=== PATIENT | male | born 1960 | race Caucasian/White ===

== ENCOUNTER 2020-02-25 19:47 | Inpatient (IN) | payer MEDICARE, OTHER ==
[~2020-02-25] VITALS: Ht 177.8 cm; Wt 113.4 kg
[2020-02-25] MEDS ORDERED: CEFTRIAXONE SOD 1 GM/NS 50 ML 50 ML IV ONE (20:15)
[2020-02-25] MEDS ORDERED: ACETAMINOPHEN 325 MG TAB PO ONE (20:15)
--- OUTSIDE RECORDS SUMMARY | 2020-02-25 20:18 | XMS REPORT | Clinical Summary ---
Author Author [facility] Organization [facility] Address Unknown Phone Unavailable Care Team Providers Care Instructional Facilitator Name Role Phone Jacqueline Parker PCP Allergies No Known Allergies Medications End Date Status Medication Sig Dispensed Refills Start Date Active aspirin (ASPIRIN) 81 mg Chew and 30 tablet 0 chewable swallow 1 8 tabletIndications: tablet by Atypical chest pain mouth daily. Additional Information Patient not taking. Reported on 04/08/2019 9:16 AM Active metoprolol succinate Take 1 tablet 90 tablet 1 (TOPROL XL) 50 mg by mouth 8 extended release daily. tabletIndications: Essential hypertension, benign Active polyethylene glycol Add lukewarm 4000 mL 0 03/21 (GOLYTELY) [id number] drinking 8 -5.86 gram oral water to the solutionIndications: fill hali (4 Fecal occult blood test liters) and positive shake. Drink as directed by your doctor.. Active cyanocobalamin, vitamin Take 1 tablet 100 tablet 1 B-12, 1,000 mcg by mouth 9 tabletIndications: Low daily. serum vitamin B12 Active polyethylene glycol Add lukewarm 4000 mL 0 08/07 (GOLYTELY) [id number] drinking 9 -5.86 gram oral water to the solutionIndications: fill hali (4 Occult blood positive liters) and stool shake. Drink as directed by your doctor.. Active blood glucose meter Use as 1 Kit 0 (PRECISION XTRA directed.. 9 GLUCOMETER)Indications: Type 2 diabetes mellitus with complication, without long-term current use of insulin Active blood glucose (PRECISION Use 2 times 50 Each 3 1 XTRA TEST STRIPS) test weekly (once 9 stripsIndications: Type 2 per day on diabetes mellitus with Mon,Thurs) to complication, without test blood long-term current use of sugar. insulin Active lancets 28 Use 2 times 100 Each 1 gaugeIndications: Type 2 weekly as 9 diabetes mellitus with directed. complication, without long-term current use of insulin Active lidocaine (RECTICARE) 5 % Apply to 45 g 2 topical creamIndications: affected area 9 Abdominal hyperesthesia daily. Active pregabalin (LYRICA) 100 Take 1 60 capsule 5 mg capsuleIndications: capsule by 0 Abdominal hyperesthesia mouth 2 times daily. Active dexlansoprazole Take 1 90 capsule 1 (DEXILANT) 30 mg delayed capsule by 0 release mouth daily. capsuleIndications: Other chronic gastritis without hemorrhage, Pyloric spasm Active metFORMIN (GLUCOPHAGE) Take 1 tablet 180 tablet 2 0 1,000 mg by mouth 2 0 tabletIndications: Type 2 times daily diabetes mellitus with (with meals). complication, without long-term current use of insulin Active hydroCHLOROthiazide Take 1 tablet 90 tablet 1 11/03 (HYDRODIURIL) 25 mg by mouth 0 tabletIndications: daily. Essential hypertension, benign Active pioglitazone (ACTOS) 15 Take 1 tablet 90 tablet 1 mg tabletIndications: by mouth 0 Type 2 diabetes mellitus daily. with complication, without long-term current use of insulin Active glimepiride (AMARYL) 2 mg Take 1 tablet 90 tablet 1 tabletIndications: Type 2 by mouth 0 diabetes mellitus with daily (with complication, without breakfast). long-term current use of insulin Active amLODIPine (NORVASC) 10 Take 1 tablet 90 tablet 0 mg tabletIndications: by mouth 0 Essential hypertension, daily. benign Active losartan (COZAAR) 50 mg Take 2 180 tablet 1 tabletIndications: tablets by 0 Essential hypertension, mouth daily. benign Active [id number]-[id number]-EPA-Fish Oil Take by 30 capsule 1 1 (FISH OIL) 1,000 mg (120 mouth. 0 mg-180 mg) capIndications: Hypertriglyceridemia 04/05/2019 Discontinued (Dose adjustmen t) pregabalin (LYRICA) 75 mg Take 1 180 capsule 1 capsuleIndications: capsule by 9 Abdominal hyperesthesia mouth 2 times daily. 01/30/2020 Discontinued (Reorder) losartan (COZAAR) 50 mg Take 2 180 tablet 1 tabletIndications: tablets by 9 Essential hypertension, mouth daily. benign 06/02/2019 Discontinued (Reorder) dexlansoprazole Take 1 90 capsule 1 (DEXILANT) 30 mg delayed capsule by 9 release mouth daily. capsuleIndications: Other chronic gastritis without hemorrhage, Pyloric spasm 07/30/2019 Discontinued (Reorder) amLODIPine (NORVASC) 10 Take 1 tablet 90 tablet 1 mg tabletIndications: by mouth 9 Essential hypertension, daily. benign 07/30/2019 Discontinued (Reorder) glimepiride (AMARYL) 2 mg Take 1 tablet 90 tablet 1 tabletIndications: Type 2 by mouth 9 diabetes mellitus with daily (with complication, without breakfast). long-term current use of insulin 07/30/2019 Discontinued (Reorder) pioglitazone (ACTOS) 15 Take 1 tablet 90 tablet 1 mg tabletIndications: by mouth 9 Type 2 diabetes mellitus daily. with complication, without long-term current use of insulin 12/02/2019 Discontinued (Reorder) hydroCHLOROthiazide Take 1 tablet 90 tablet 1 02/02 (HYDRODIURIL) 25 mg by mouth 9 tabletIndications: daily. Essential hypertension, benign 12/02/2019 Discontinued (Reorder) metFORMIN (GLUCOPHAGE) Take 1 tablet 180 tablet 2 1 1,000 mg by mouth 2 9 tabletIndications: Type 2 times daily diabetes mellitus with (with meals). complication, without long-term current use of insulin 04/05/2019 Discontinued (Reorder) pregabalin (LYRICA) 100 Take 1 60 capsule 2 mg capsuleIndications: capsule by 0 Abdominal hyperesthesia mouth 2 times daily. 10/18/2019 Discontinued (Reorder) pregabalin (LYRICA) 100 Take 1 60 capsule 5 mg capsuleIndications: capsule by 0 Abdominal hyperesthesia mouth 2 times daily. 11/25/2019 Discontinued (Reorder) dexlansoprazole Take 1 90 capsule 1 (DEXILANT) 30 mg delayed capsule by 0 release mouth daily. capsuleIndications: Other chronic gastritis without hemorrhage, Pyloric spasm 10/18/2019 Discontinued (Reorder) amLODIPine (NORVASC) 10 Take 1 tablet 90 tablet 0 mg tabletIndications: by mouth 0 Essential hypertension, daily. benign 10/18/2019 Discontinued (Reorder) glimepiride (AMARYL) 2 mg Take 1 tablet 90 tablet 0 tabletIndications: Type 2 by mouth 0 diabetes mellitus with daily (with complication, without breakfast). long-term current use of insulin 10/18/2019 Discontinued (Reorder) pioglitazone (ACTOS) 15 Take 1 tablet 90 tablet 0 mg tabletIndications: by mouth 0 Type 2 diabetes mellitus daily. with complication, without long-term current use of insulin 11/25/2019 Discontinued (Reorder) amLODIPine (NORVASC) 10 Take 1 tablet 30 tablet 0 mg tabletIndications: by mouth 0 Essential hypertension, daily. benign 11/25/2019 Discontinued (Reorder) glimepiride (AMARYL) 2 mg Take 1 tablet 30 tablet 0 tabletIndications: Type 2 by mouth 0 diabetes mellitus with daily (with complication, without breakfast). long-term current use of insulin 11/25/2019 Discontinued (Reorder) pioglitazone (ACTOS) 15 Take 1 tablet 30 tablet 0 mg tabletIndications: by mouth 0 Type 2 diabetes mellitus daily. with complication, without long-term current use of insulin 01/30/2020 Discontinued (Reorder) amLODIPine (NORVASC) 10 Take 1 tablet 90 tablet 0 mg tabletIndications: by mouth 0 Essential hypertension, daily. benign 01/08/2020 Discontinued (Reorder) glimepiride (AMARYL) 2 mg Take 1 tablet 30 tablet 0 tabletIndications: Type 2 by mouth 0 diabetes mellitus with daily (with complication, without breakfast). long-term current use of insulin 01/08/2020 Discontinued (Reorder) pioglitazone (ACTOS) 15 Take 1 tablet 30 tablet 0 202 mg tabletIndications: by mouth 0 Type 2 diabetes mellitus daily. with complication, without long-term current use of insulin 01/30/2020 Discontinued (Reorder) glimepiride (AMARYL) 2 mg Take 1 tablet 30 tablet 0 tabletIndications: Type 2 by mouth 0 diabetes mellitus with daily (with complication, without breakfast). long-term current use of insulin 01/30/2020 Discontinued (Reorder) pioglitazone (ACTOS) 15 Take 1 tablet 30 tablet 0 mg tabletIndications: by mouth 0 Type 2 diabetes mellitus daily. with complication, without long-term current use of insulin 01/20/2020 ciprofloxacin HCl (CIPRO) Start day 6 tablet 0 500 mg tabletIndications: before 0 Elevated PSA prostate biopsy. Take 1 tablet by mouth 2 times daily for 3 days 01/17/2020 sodium phosphates (FLEET Insert 1 135 mL 0 1 ENEMA) 19-7 gram/118 mL Bottle 0 enemaIndications: rectally once Elevated PSA for 1 dose. 01/30/2020 tropicamide (MYDRIACYL) Instill 1 15 mL 0 0.5 % ophthalmic Drop in each 0 solutionIndications: Type eye once as 2 diabetes mellitus with needed for up complication, without to 1 dose long-term current use of (for poor insulin retina scan image). Active Problems Problem Noted Date Lower urinary tract symptoms (LUTS) 01/17/2020 Elevated PSA 01/17/2020 Chronic left shoulder pain 04/02/2019 Decreased range of motion of left shoulder 9 Impaired tolerance of activity 04/02/2019 Pyloric spasm 05/22/2018 Polyneuropathy associated with underlying disease Abdominal hyperesthesia - abd wall hyperparathesia- E MG showed FINDINGS OF 03/16/2018 CHRONIC RE-INNERVATION POTENTIALS ON NE EDLE EMG AT THE LEVEL OF THE LEFT T12 PARASPINALS. Essential hypertension, benign 03/16/2018 Type 2 diabetes mellitus with complication, without l tez-term current use 03/16/2018 of insulin Dyslipidemia 03/16/2018 Epigastric abdominal pain 01/02/2018 Atypical chest pain 01/01/2018 Encounters Care Team Description Date Type Specialty Jacqueline Parker DO Bray, Ashley 02/14/2020 Nurse Only Jacqueline Parker DO Type 2 diabetes mellitus with complicati on, without long-term current use of insulin (Primary Dx); Elevated PSA; Proteinuria, unspecified type; Essential hypertension, benign; Elevated LFTs; Needs flu shot; Hypokalemia; Hypertriglyceridemia 01/30/2020 Telephonic [facility] Practice Encounter Jacqueline Parker DO 01/30/2020 Orders Only [facility] Yury Del Rosario MD Elevated PSA (Primary Dx); Lower urinary tract symptoms (LUTS) 01/17/2020 Telephonic Urology Encounter Jacqueline Parker DO Medications 01/08/2020 Refill [facility] Jacqueline Parker DO Type 2 diabetes mellitus with complicati on, without long-term current use of insulin (Primary Dx); Essential hypertension, benign; Elevated PSA; Preventative health care; Lower urinary tract symptoms (LUTS) 12/02/2019 Telephonic [facility] Encounter Jacqueline Parker DO Medications 11/25/2019 Refill [facility] Jacqueline Parker DO Medications 10/18/2019 Refill [facility] Kira Alcala MD Medications 10/18/2019 [facility] 07/30/2019 Clinical Pharmacy Jacqueline Parkre DO Medications 07/30/2019 Refill [facility] Rachel Juares, PT Chronic left shoulder pain; Decreased range of motion of left shoulder; Impaired tolerance of activity 06/05/2019 Therapy Physical Therapy Jacqueline Parker DO Medications 06/02/2019 Refill [facility] Rachel Juares, STEPHANIE Chronic left shoulder pain; Decreased range of motion of left shoulder; Impaired tolerance of activity 05/30/2019 Therapy Physical Therapy Abdominal hyperesthesia- abd wall hyperparathesia- EMG showed FINDINGS OF CHRONIC RE-INNERVATION POTENTIALS ON NEEDLE EMG AT THE LEVEL OF THE LEFT T12 PARASPINALS. 05/01/2019 Ancillary Radiology Procedure Abdominal hyperesthesia- abd wall hyperparathesia- EMG showed FINDINGS OF CHRONIC RE-INNERVATION POTENTIALS ON NEEDLE EMG AT THE LEVEL OF THE LEFT T12 PARASPINALS. 2019 Ancillary Radiology Procedure Kira Alcala MD 04/12/2019 Orders Only Neurology Stephenie Perez DDS Dental calculus (Primary Dx); Chronic periodontitis 04/08/2019 Office Visit Dentistry Kira Alcala MD Abdominal hyperesthesia- abd wall hyperp arathesia- EMG showed FINDINGS OF CHRONIC RE-INNERVATION POTENTIALS ON NEEDLE EMG AT THE LEVEL OF THE LEFT T12 PARASPINALS. 04/05/2019 Office Visit Neurology Team, 1-Pt Rachel Juares, PT Chronic left shoulder pain (Primary Dx); Decreased range of motion of left shoulder; Impaired tolerance of activity 04/02/2019 Therapy Physical Therapy after 02/24/2019 Immunizations Name Administration Dates Next Due Influenza, Vaccine 03/16/2018 (Deferred: Patie nt Refused) <FLUCELVAX>(Preservative- Free) Influenza, 02/14/2020, 02/21/2019 (Deferred: Patie nt Refused) 02/13/2021 Vaccine<FLUCELVAX>(Multi- Dose) PNEUMOCOCCAL 23-VALPS 03/16/2018 (Deferred: Other - requesting to wait) VACCINE 25 MCG/0.5 ML INJECTION Tdap (Tetanus Toxoid, 07/06/2018 (Deferred: Other - patient request to Reduced Diphtheria Toxoid wait), 03/16/2018 (Deferre d: Other - already had And Acellular Pertussis, it) Absorbed) Family History Relation Name Status Comments Brother Alive 3 brother Father Mother Sister Alive 2 sisters Social History Date Tobacco Use Types Packs/Day Years Used Never Smoker Smokeless Tobacco: Never Used Tobacco Cessation: Counseling Given: No Drinks/Week oz/Week Comments Alcohol Use 5 Cans of beer 5.0 Yes Food Insecurity Answer Date Recorded Within the past 12 months, you worried that your Never nanci e 01/08/2019 food would run out before you got money to buy more. Within the past 12 months, the food you bought Never true 01/08/2019 just didn't last and you didn't have mo eugenie to get more. Sex Assigned at Date Recorded Not on file Industry Job Start Date Occupation Not on file Not on file Not on file Travel End Travel History Travel Start No recent travel history available. Date Recorded COVID-19 Exposure Response 02/14/2020 2:16 PM DATA ANALYTICS ANALYST In the last month, have you been in contact with No / Unsure someone who was confirmed or suspected to have Coronavirus / COVID-19? Last Filed Vital Signs Reading Time Taken Comments Vital Sign 133/74 06/06/2019 8:59 AM DATA ANALYTICS ANALYST Blood Pressure 108 06/06/2019 8:59 AM DATA ANALYTICS ANALYST Pulse 37 C (98.6 F) 04/05/2019 8:47 AM DATA ANALYTICS ANALYST Temperature 18 04/05/2019 8:47 AM DATA ANALYTICS ANALYST Respiratory Rate - - Oxygen Saturation - - Inhaled Oxygen Concentration 112 kg (247 lb) 04/05/2019 8:47 AM DATA ANALYTICS ANALYST Weight 177.8 cm (5' 10") 04/05/2019 8:47 AM DATA ANALYTICS ANALYST Height 35.44 04/05/2019 8:47 AM DATA ANALYTICS ANALYST Body Mass Index Plan of Treatment Care Team Description Date Type Specialty Jacqueline Parker DO [address] [place] [address] [phone] 03/12/2020 Telephonic Family Practice Encounter 03/25/2020 Telephonic Nutrition Encounter Health Maintenance Due Date Last Done Comments Colorectal Cancer Scrn 03/20/2019 03/20/2018 Annual (FIT/FOBT) Age 50 to 75 DM Foot Exam (Yearly) 10/24/2019 10/23/2018, 07/06/2018 DM HGBA1C (Yearly) 01/14/2021 01/15/2020, 02/21/2019, 12/27/2018, Additional history exists DM Retinal Exam (Yearly) 02/13/2021 02/14/2020, 02/21/2019, 03/16/2018 IMM Influenza Seasonal Completed 02/14/2020 Oct to June (>/= 19 yrs) Procedures Comments Procedure Name Priority Date/Time Associated Diag nosis GAMMA GLUTAMYL Routine 02/14/2020 Elevated LFTs TRANSFERASE (GGT) 2:58 PM DATA ANALYTICS ANALYST HEPATITIS PANEL Routine 02/14/2020 Elevated LFTs 2:58 PM DATA ANALYTICS ANALYST BASIC METABOLIC PANEL Routine 02/14/2020 Hypokale rupal 2:58 PM DATA ANALYTICS ANALYST LIVER PROFILE Routine 02/14/2020 Elevated LFTs 2:58 PM DATA ANALYTICS ANALYST TOTAL PROTEIN/CREATININE Routine 02/14/2020 Prote inuria, unspecified RATIO, URINE 2:58 PM DATA ANALYTICS ANALYST type OPHTHALMOLOGY RETINAL Routine 02/14/2020 Type 2 d iabetes mellitus SCAN 2:49 AM DATA ANALYTICS ANALYST with complication, without long-term current use of insulin URINALYSIS Routine 01/15/2020 Essential hyper tension, 12:41 PM CDT benign URINALYSIS Routine 01/15/2020 Essential hyper tension, 12:41 PM CDT benign CBC Routine 01/15/2020 Preventative he alth care 12:41 PM CDT MICROALBUMIN / CREATININE Routine 01/15/2020 Type 2 diabetes mellitus URINE RATIO 12:41 PM CDT with complication, without long-term current use of insulin VITAMIN B12 Routine 01/15/2020 Type 2 diabetes mellitus 12:41 PM CDT with complication, without long-term current use of insulin PROSTATE SPECIFIC ANTIGEN Routine 01/15/2020 Elev ated PSA (PSA) 12:41 PM CDT THYROID STIMULATING Routine 01/15/2020 Preventati ve health care HORMONE (TSH) 12:41 PM CDT LIPID PROFILE Routine 01/15/2020 Preventative he alth care 12:41 PM CDT CBC/DIFF Routine 01/15/2020 Preventative he alth care 12:41 PM CDT COMPREHENSIVE METABOLIC Routine 01/15/2020 Type 2 diabetes mellitus PANEL 12:41 PM CDT with complication, without long-term current use of insulin HEMOGLOBIN A1C Routine 01/15/2020 Type 2 diabetes mellitus 12:41 PM CDT with complication, without long-term current use of insulin MRI BRAIN W AND W/O Routine 05/01/2019 Abdominal hyperesthesia- CONTRAST 7:58 AM DATA ANALYTICS ANALYST abd wall hyperparat hesia- EMG showed FINDINGS OF CHRONIC RE-INNERVATION POTENTIALS ON NEEDLE EMG AT THE LEVEL OF THE LEFT T12 PARASPINALS. CTA HEAD W CONTRAST Routine 2019 Abdominal hyperesthesia- 4:32 PM DATA ANALYTICS ANALYST abd wall hyperparathesia- EMG showed FINDINGS OF CHRONIC RE-INNERVATION POTENTIALS ON NEEDLE EMG AT THE LEVEL OF THE LEFT T12 PARASPINALS. DEVON Routine 04/05/2019 Abdominal hyper esthesia- 11:43 AM DATA ANALYTICS ANALYST abd wall hyperparathesia- EMG showed FINDINGS OF CHRONIC RE-INNERVATION POTENTIALS ON NEEDLE EMG AT THE LEVEL OF THE LEFT T12 PARASPINALS. HTLV-I/II AB QL Routine 04/05/2019 Abdominal hype resthesia- 11:43 AM DATA ANALYTICS ANALYST abd wall hyperparathesia- EMG showed FINDINGS OF CHRONIC RE-INNERVATION POTENTIALS ON NEEDLE EMG AT THE LEVEL OF THE LEFT T12 PARASPINALS. VITAMIN B6 Routine 04/05/2019 Abdominal hyper esthesia- 11:43 AM DATA ANALYTICS ANALYST abd wall hyperparathesia- EMG showed FINDINGS OF CHRONIC RE-INNERVATION POTENTIALS ON NEEDLE EMG AT THE LEVEL OF THE LEFT T12 PARASPINALS. SJOGREN'S AB Routine 04/05/2019 Abdominal hyper esthesia- 11:43 AM DATA ANALYTICS ANALYST abd wall hyperparathesia- EMG showed FINDINGS OF CHRONIC RE-INNERVATION POTENTIALS ON NEEDLE EMG AT THE LEVEL OF THE LEFT T12 PARASPINALS. COPPER, SERUM Routine 04/05/2019 Abdominal hyper esthesia- 11:43 AM DATA ANALYTICS ANALYST abd wall hyperparathesia- EMG showed FINDINGS OF CHRONIC RE-INNERVATION POTENTIALS ON NEEDLE EMG AT THE LEVEL OF THE LEFT T12 PARASPINALS. HEAVY METALS BLD Routine 04/05/2019 Abdominal hyp eresthesia- 11:43 AM DATA ANALYTICS ANALYST abd wall hyperparathesia- EMG showed FINDINGS OF CHRONIC RE-INNERVATION POTENTIALS ON NEEDLE EMG AT THE LEVEL OF THE LEFT T12 PARASPINALS. SYPHILIS SCREEN FOR Routine 04/05/2019 Abdominal hyperesthesia- INFECTION 11:43 AM DATA ANALYTICS ANALYST abd wall hyperparat hesia- EMG showed FINDINGS OF CHRONIC RE-INNERVATION POTENTIALS ON NEEDLE EMG AT THE LEVEL OF THE LEFT T12 PARASPINALS. HIV AG/AB COMBO ROUTINE Routine 04/05/2019 Abdomi nal hyperesthesia- SCREENING 11:43 AM DATA ANALYTICS ANALYST abd wall hyperparat hesia- EMG showed FINDINGS OF CHRONIC RE-INNERVATION POTENTIALS ON NEEDLE EMG AT THE LEVEL OF THE LEFT T12 PARASPINALS. RA FACTOR Routine 04/05/2019 Abdominal hyper esthesia- 11:43 AM DATA ANALYTICS ANALYST abd wall hyperparathesia- EMG showed FINDINGS OF CHRONIC RE-INNERVATION POTENTIALS ON NEEDLE EMG AT THE LEVEL OF THE LEFT T12 PARASPINALS. ANGIOTENSIN CONVERTING Routine 04/05/2019 Abdomin al hyperesthesia- ENZYME 11:43 AM DATA ANALYTICS ANALYST abd wall hyperparat hesia- EMG showed FINDINGS OF CHRONIC RE-INNERVATION POTENTIALS ON NEEDLE EMG AT THE LEVEL OF THE LEFT T12 PARASPINALS. BASIC METABOLIC PANEL Routine 04/05/2019 Abdomina l hyperesthesia- 11:43 AM DATA ANALYTICS ANALYST abd wall hyperparathesia- EMG showed FINDINGS OF CHRONIC RE-INNERVATION POTENTIALS ON NEEDLE EMG AT THE LEVEL OF THE LEFT T12 PARASPINALS. after 02/24/2019 Results * T Prot/Crea Ratio,Ur (02/14/2020 2:58 PM DATA ANALYTICS ANALYST) Creatinine, 70 20 - 370 mg/dL [facility] Total Protein, 0.08 <0.19 g/L [facility] Total 0.1 0 - 0.5 % % [facility] Protein/Creatin [facility] ine Ratio, Urine Specimen Urine - Voided, urine Performing Organization Address [facility] one Number [facility] [address] [place] [phone] * Liver Profile (02/14/2020 2:58 PM DATA ANALYTICS ANALYST) Total Protein 7.1 6.0 - 8.3 g/dL [facility] Bilirubin, 1.3 (H) 0.2 - 1.2 mg/dL [facility] Total [facility] Alkaline 62 34 - 104 U/L [facility] Phosphatase [facility] AST 38 13 - 39 U/L [facility] Direct 0.2 0.0 - 0.2 mg/dL [facility] Bilirubin [facility] ALT 70 (H) 7 - 52 U/L [facility] Albumin 4.5 4.2 - 5.5 g/dL [facility] Specimen Blood Performing Organization Address [facility] one Number [facility] [address] [place], [place] [phone] * Hepatitis Panel (02/14/2020 2:58 PM DATA ANALYTICS ANALYST) Pathologist [facility] Hepatitis C Negative Negative [facility] Virus (HCV) [facility] Antibody Hep B Surface Negative Negative [facility] Hep A Vir Ab Negative Negative [facility] IgM [facility] Hep B Core Ab Negative Negative [facility] IgM [facility] Specimen Blood Performing Organization Address [facility] one Number [facility] [address] [place] [address] * GGT [Gamma-Glutamyl Transferase] (02/14/2020 2:58 PM DATA ANALYTICS ANALYST) Pathologist [facility] GGT 102 (H) 9 - 64 U/L [facility] Specimen Blood Performing Organization Address [facility] one Number [facility] [address] [place], [place] [phone] * Basic Metabolic Panel (02/14/2020 2:58 PM DATA ANALYTICS ANALYST) Only the most recent of 2 results within the time period is included. Pathologist [facility] Sodium 133 (L) 136 - 145 mmol/L [facility] Potassium 4.1 3.5 - 5.1 mmol/L [facility] Chloride 93 (L) 98 - 107 mmol/L [facility] CO2 29 21 - 31 mmol/L [facility] Urea Nitrogen 17.0 7.0 - 25.0 mg/dL [facility] Creatinine 0.9 0.7 - 1.3 mg/dL [facility] Glucose 399 (H) 70 - 110 mg/dL [facility] Calcium 10.1 8.6 - 10.3 mg/dL [facility] GFR, Estimated 86 (L) >=90 mL/min/1.73 m2 [facility] Anion Gap 11 5 - 16 mmol/L [facility] Specimen Blood Performing Organization Address [facility] one Number [facility] [address] [place], [place] [phone] * OPHTHALMOLOGY RETINAL SCAN (02/14/2020 2:49 AM DATA ANALYTICS ANALYST) [facility] RETINAL NORMAL [facility] SCAN-FINAL RESULT Right Diabetic None [facility] Retinopathy Right Macular None [facility] Edema Right Other None [facility] Suspected Conditions Right Image Gradable Image IRIS Quality Left Diabetic None [facility] Retinopathy Left Macular None [facility] Edema Left Other None [facility] Suspected Conditions Left Image Gradable Image [facility]IS Quality Specimen Narrative Performed At Retinal Study Result for steven SIM 59 y/o, Abad (: [id number], ) presented to [facility] on 02-14-2020 for a retinal imaging study of the left and r ight eyes. Based on the findings of the study, the following is recommended for [place] Normal Scan: Please advise the patient to return for another scan in 1 year. Interpreting Provider's Comments: No comments provided Right eye findings: Normal Result. Ne gative for Diabetic Retinopathy. Left eye findings: Normal Result. Neg ative for Diabetic Retinopathy. This result was electronically signed Ramin Colindres MD, , Taxonomy: [id number] on 02/14/2020 10:3 0 PM. NOTE: Any pathology noted on this speedy betic retinal evaluation should be confirmed by an appropriate ophthalmic examination. Performing Organization Address City/State/Zipcode Ph one Number [facility] * CBC/Diff (01/15/2020 12:41 PM CDT) WBC 8.7 4.5 - 12.0 K/uL [facility] RBC 5.47 4.60 - 6.20 M/uL [facility] Hemoglobin 16.5 14.0 - 18.0 g/dL [facility] Hematocrit 48.1 40.0 - 54.0 % [facility] LABORATORY MCV 87.9 82.0 - 92.0 fL [facility] MCH 30.2 27.0 - 31.0 pg [facility] MCHC 34.3 32.0 - 36.0 g/dL [facility] RDW 43.4 35.1 - 43.9 fL [facility] Platelet 193 150 - 400 K/uL [facility] Mean Platelet 10.7 9.4 - 12.4 fL [facility] Volume [facility]OR[facility] Percent NRBC 0.0 % [facility] Neutrophil 63.4 34.0 - 67.9 % [facility] Lymphs 22.2 21.8 - 50.0 % [facility] Monocytes 10.5 5.3 - 12.0 % [facility] Eos 2.6 0.8 - 5.0 % [facility] Basos 0.8 0.2 - 1.2 % [facility] Immature 0.5 0.0 - 0.5 % [facility] Granulocytes LAB[facility]ORY Neutrophils 5.50 (H) 1.78 - 5.36 K/uL [facility] (Absolute) [facility] Lymphs 1.93 1.32 - 3.57 K/uL [facility] (Absolute) [facility] Monocytes(Absol 0.91 (H) 0.30 - 0.82 K/uL [facility] vickie) LABORATORY Eos (Absolute) 0.23 0.04 - 0.54 K/uL [facility] Baso (Absolute) 0.07 0.01 - 0.08 K/uL [facility] Immature Grans 0.04 (H) 0.00 - 0.03 K/uL [facility] (Abs) [facility] Absolute NRBC 0.00 K/uL [facility] Specimen Blood Performing Organization Address [facility] Ph one Number [facility] [address] [place], [place] [phone] * Urinalysis (01/15/2020 12:41 PM CDT) Color Yellow Colorless, Straw, [facility] Yellow [facility]ORATORY Clarity Clear Clear [facility] Spec [place], 1.026 1.001 - 1.035 [facility] Ur [facility] pH, Ur 5.0 5.0 - 8.0 [facility] Protein, Ur 2+ (A) Negative mg/dL [facility] Glucose, Ur Negative Negative mg/dL [facility] Ketone, Ur trace (A) Negative mg/dL [facility] Bilirubin, Ur Negative Negative mg/dL [facility] Nitrite, Ur Negative Negative [facility] Leukocyte Negative Negative mg/dL [facility] Blood, Ur Negative Negative mg/dL [facility] RBC <1 0 - 4 /HPF [facility] WBC 2 0 - 5 /HPF [facility] Epithelial Cell 1 <=1 /HPF [facility] Mucous Present (A) None seen /HPF [facility] Urobilinogen, 1.0 (A) <1.0 EU/dL [facility] Specimen Urine Performing Organization Address [facility] one Number [facility] [address] [place] [address] [phone] * Microalbumin / Creatinine Urine Ratio (01/15/2020 12:41 PM CDT) Pathologist [facility] Microalbumin, 15.2 <30.0 mg/dL [facility] Random [facility]OR[facility] Creatinine, 398 (H) 20 - 370 mg/dL [facility] Urine [facility] Urine 38.2 (H) 0.0 - 30.0 mg/g [facility] Microalbumin LAB[facility] Specimen Urine - Voided, urine Performing Organization Address [facility] one Number [facility] [address] [place] [address] * Hemoglobin A1C (01/15/2020 12:41 PM CDT) [facility] Hemoglobin A1c 8.9 (H) 4.3 - 6.1 % [facility] Estimated 209 (H) 70 - 110 mg/dL [facility] Average Glucose LABORATORY Specimen Blood Performing Organization Address [facility] one Number [facility] [address] [place] [address] * Comprehensive Metabolic Panel (01/15/2020 12:41 PM CDT) [facility] Sodium 140 136 - 145 mmol/L [facility] Potassium 3.3 (L) 3.5 - 5.1 mmol/L [facility] Chloride 98 98 - 107 mmol/L [facility] CO2 29 21 - 31 mmol/L [facility] Glucose 181 (H) 70 - 110 mg/dL [facility] Calcium 9.7 8.6 - 10.3 mg/dL [facility] Urea Nitrogen 14.0 7.0 - 25.0 mg/dL [facility] Creatinine 0.9 0.7 - 1.3 mg/dL [facility] Alkaline 57 34 - 104 U/L [facility] Phosphatase LABORATORY ALT 122 (H) 7 - 52 U/L [facility] AST 85 (H) 13 - 39 U/L [facility] Bilirubin, 1.8 (H) 0.2 - 1.2 mg/dL [facility] Total [facility]ORATORY Total Protein 7.4 6.0 - 8.3 g/dL [facility] GFR, Estimated 86 (L) >=90 mL/min/1.73 m2 [facility] Albumin 4.6 4.2 - 5.5 g/dL [facility] Anion Gap 13 5 - 16 mmol/L [facility] Specimen Blood Performing Organization Address [facility] one Number [facility] [address] [place] [address] * TSH [Thyroid Stimulating Hormone] (01/15/2020 12:41 PM CDT) TSH 3.96 0.45 - 5.33 uIU/mL [facility] Specimen Blood Performing Organization Address [facility] one Number [facility] [address] [place] [address] * PSA (01/15/2020 12:41 PM CDT) PSA 5.720 (H) <=4.000 ng/mL [facility] Specimen Blood Performing Organization Address [facility] one Number [facility] [address] [place] [address] [phone] * Vitamin B12 (01/15/2020 12:41 PM CDT) Vitamin B12 435 See comment pg/mL [facility] Comment: LABORATORY Normal: 180-914 pg/mL Intermittent: 145-180 pg/mL Deficient: <=145.0 pg/mL Specimen Blood Performing Organization Address [facility] one Number [facility] [address] [place] [address] [phone] * Lipid Profile (01/15/2020 12:41 PM CDT) Cholesterol 175.0 <=200.0 mg/dL [facility] Triglyceride 388 (H) <150 mg/dL [facility] HDL 37.0 See Reference Range [facility] Narrative. mg/dL LABORATORY LDL 60 <100 mg/dL [facility] Comment: LABORATORY Optimal: < 100.0 mg/dL Near Optimal: 120-129 mg/dL Borderline: 130-159 mg/dL High: 160-189 mg/dL Very High: >=190 mg/dL Patient Yes [facility] Fasting? LABORATORY Specimen Blood Performing Organization Address [facility] one Number [facility] [address] [place] [address] [phone] * MRI BRAIN W AND W/O CONTRAST (05/01/2019 7:58 AM DATA ANALYTICS ANALYST) Specimen Impressions Performed At IMPRESSION: [facility] 1. No acute intracranial abnormalitie s. 2. Mild generalized cerebral volume l oss. Mild supratentorial chronic microvascular ischemic change. Signed By: Rey Field MD, 05/01/2019 1:53 PM Narrative Performed At MRI BRAIN W AND W/O CONTRAST [facility] HISTORY: Ataxia, stroke suspected COMPARISON: CTA of the head 2019 TECHNIQUE: Multiplanar, multisequence MRI of the b rain (including diffusion-weighted imaging) was perform ed before and after the administration of intravenous, gadolini um based contrast. A total of 10 image series were submitted for interpr etation. DISCUSSION: Scalp/bone marrow: Unremarkable. Brain sulci: Mildly prominent. Ventricles: Compensatory dilatation. Extra-axial spaces: No masses or fluid collections. Parenchyma: Scattered T2/FLAIR hyperintense foci th roughout the supratentorial white matter are likely chronic microvascular ischemic changes. Otherwise, no mass, hemorrhage, or acut e vascular insults. No abnormal parenchymal, leptomeningeal , or dural enhancement is seen. Vessels: Normal flow voids in major art eries and veins. Sellar/Suprasellar region: No abnorma lities. Craniocervical junction: No abnormaliti es. Incidental findings: None. Procedure Note Interface, Rad/Mammog In - 05/01/2019 1:58 PM DATA ANALYTICS ANALYST MRI BRAIN W AND W/O CONTRAST HISTORY: Ataxia, stroke suspected COMPARISON: CTA of the head 2019 TECHNIQUE: Multiplanar, multisequence MRI of the brain (including diffusion-weighted imaging) was performed before and after the administration of intravenous, gadolinium based contrast. A total of 10 image series were submitted for interpretation. DISCUSSION: Scalp/bone marrow: Unremarkable. Brain sulci: Mildly prominent. Ventricles: Compensatory dilatation. Extra-axial spaces: No masses or fluid collections. Parenchyma: Scattered T2/FLAIR hyperintense foci throughout the supratentorial white matter are likely chronic microvascular ischemic changes. Otherwise, no mass, hemorrhage, or acute vascular insults. No abnormal parenchymal, leptomeningeal, or dural enhancement is seen. Vessels: Normal flow voids in major arteries and veins. Sellar/Suprasellar region: No abnormalities. Craniocervical junction: No abnormalities. Incidental findings: None. IMPRESSION IMPRESSION: 1. No acute intracranial abnormalities. 2. Mild generalized cerebral volume los s. Mild supratentorial chronic microvascular ischemic change. Signed By: Rey Field MD, 05/01/2019 1:53 PM Performing Organization Address City/State/Zipcode Ph one Number SMS * CTA HEAD W CONTRAST (2019 4:32 PM DATA ANALYTICS ANALYST) Specimen Impressions Performed At IMPRESSION: [facility] Head CT with and without contrast: 1. Mild generalized parenchymal volum e loss. 2. Mild chronic microvascular ischemi c changes. Intracranial CTA: 1. Luminal irregularity with moderate stenosis in the right P2 PHARMACEUTICAL REPRESENTATIVE segment and moderate stenosis at the le ft SCA origin which may be due to atherosclerosis. Consider other nonspec [facility] vasculopathy only in the appropriate clinical setting. 2. Infundibular dilatation (1.5 mm) a t the origin of the left P1 PHARMACEUTICAL REPRESENTATIVE and left SCA. 3. No other major branch occlusion or stenosis. If the report is "FINALIZED" it indicat es that the attending/staff radiologist has reviewed the images and agrees with the resident's interpretation. Dictated By: Colton Pop MD, 2019 1 0:28 PM I have reviewed the study and agree wit h the findings in this report. Signed By: Deon Luis MD, 2019 11:19 PM Narrative Performed At Exams: Intracranial CT angiogram SMS History: Ataxia, stroke suspected Abdom inal hyperesthesia Comparison studies: None. Technique: Axial CT scans obtained from the skull base to the vertex without contrast Axial images obtained through the intra cranial region during injection of IV contrast. Axial CT scans obtained from the skull base to the vertex after the CTA. Coronal and sagittal reconstructions ob tained from the axial data. For optimization of anatomic evaluation, mu ltiplanar reconstruction, maximum intensity projections, and advanced 3-D off-line postprocessing were obtained on a dedicated stand-alone wor kstation under the direct supervision of the interpreting physici an. IV Contrast 100 cc of Omnipaque. Complication: None Radiation dose: Total DLP: 2461.83 mGy* cm Estimated Effective Dose: DLP x 0.031 m Sv FINDINGS: Head CT without and with IV contrast: Scalp/Skull: No abnormalities. Brain sulci: Mildly prominent. Ventricles: Mild compensatory dilatatio n. No hydrocephalus. Extra-axial spaces: No masses or fluid collections. Parenchyma: No enhancing abnormalities. No masses, acute hemorrhage or acute or chronic cortical insults. A few subtle hypodensities in the supra tentorial white matter nonspecific but are most compatible wit h chronic microvascular ischemic changes. Dural sinuses: No abnormal densities. Sellar/Suprasellar region: Intact. Skull base and Craniocervical junction: Intact. Intracranial CTA: Anterior Circulation : Internal carotid arteries: Patent with minimal nonstenotic calcified plaque in the bilateral paraophthalmic segments. Anterior cerebral arteries: Patent, no proximal branch occlusion or stenosis. Middle cerebral arteries: Patent, no pr oximal branch occlusion or stenosis. Punctate, nonspecific in the setting of atherosclerotic calcification within the left clinoid ICA segment. Posterior circulation: Vertebral arteries: Patent, no abnormal ities. Basilar artery: Patent, no stenosis. Th ere is 1.5 mm infundibular-like dilatation at the junction of the origi ns of the left P1 PHARMACEUTICAL REPRESENTATIVE and left superior cerebellar artery (SCA) origin as well as moderate focal stenosis at the left SCA origin which i s by visualized on the coronal MIP reformat (series 501, image 10). Posterior cerebral arteries: Patent, no proximal branch occlusion. The left P1 segment is hypoplastic and ther e is a prominent left posterior communicating artery (-time left P CA origin). Multifocal luminal irregularity present within the right P 2 PHARMACEUTICAL REPRESENTATIVE which result in in varying degrees of mild to moderate stenosis. M oderate stenosis in the proximal right P2 segment is best visualized on the axial MIP reformatted sequence (series 500 image 15). Normal Variants: ACom: Patent Pcoms: Patent on the left with -ty pe PHARMACEUTICAL REPRESENTATIVE origin. Not well visualized on the right. Vertebral arteries: Co-dominant. Procedure Note Interface, Rad/Mammog In - 2019 11:24 PM DATA ANALYTICS ANALYST Exams: Intracranial CT angiogram History: Ataxia, stroke suspected Abdominal hyperesthesia Comparison studies: None. Technique: Axial CT scans obtained from the skull base to the vertex without contrast Axial images obtained through the intracranial region during injection of IV contrast. Axial CT scans obtained from the skull base to the vertex after the CTA. Coronal and sagittal reconstructions obtained from the axial data. For optimization of anatomic evaluation, multiplanar reconstruction, maximum intensity projections, and advanced 3-D off-line postprocessing were obtained on a dedicated stand-alone workstation under the direct supervision of the interpreting physician. IV Contrast 100 cc of Omnipaque. Complication: None Radiation dose: Total DLP: 2461.83 mGy*cm Estimated Effective Dose: DLP x 0.031 mSv FINDINGS: Head CT without and with IV contrast: Scalp/Skull: No abnormalities. Brain sulci: Mildly prominent. Ventricles: Mild compensatory dilatation. No hydrocephalus. Extra-axial spaces: No masses or fluid collections. Parenchyma: No enhancing abnormalities. No masses, acute hemorrhage or acute or chronic cortical insults. A few subtle hypodensities in the supratentorial white matter nonspecific but are most compatible with chronic microvascular ischemic changes. Dural sinuses: No abnormal densities. Sellar/Suprasellar region: Intact. Skull base and Craniocervical junction: Intact. Intracranial CTA: Anterior Circulation : Internal carotid arteries: Patent with minimal nonstenotic calcified plaque in the bilateral paraophthalmic segments. Anterior cerebral arteries: Patent, no proximal branch occlusion or stenosis. Middle cerebral arteries: Patent, no proximal branch occlusion or stenosis. Punctate, nonspecific in the setting of atherosclerotic calcification within the left clinoid ICA segment. Posterior circulation: Vertebral arteries: Patent, no abnormalities. Basilar artery: Patent, no stenosis. There is 1.5 mm infundibular-like dilatation at the junction of the origins of the left P1 PHARMACEUTICAL REPRESENTATIVE and left superior cerebellar artery (SCA) origin as well as moderate focal stenosis at the left SCA origin which is by visualized on the coronal MIP reformat (series 501, image 10). Posterior cerebral arteries: Patent, no proximal branch occlusion. The left P1 segment is hypoplastic and there is a prominent left posterior communicating artery (-time left PHARMACEUTICAL REPRESENTATIVE origin). Multifocal luminal irregularity present within the right P2 PHARMACEUTICAL REPRESENTATIVE which result in in varying degrees of mild to moderate stenosis. Moderate stenosis in the proximal right P2 segment is best visualized on the axial MIP reformatted sequence (series 500 image 15). Normal Variants: ACom: Patent Pcoms: Patent on the left with -type PHARMACEUTICAL REPRESENTATIVE origin. Not well visualized on the right. Vertebral arteries: Co-dominant. IMPRESSION IMPRESSION: Head CT with and without contrast: 1. Mild generalized parenchymal volume loss. 2. Mild chronic microvascular ischemic changes. Intracranial CTA: 1. Luminal irregularity with moderate s tenosis in the right P2 PHARMACEUTICAL REPRESENTATIVE segment and moderate stenosis at the left SCA origin which may be due to atherosclerosis. Consider other nonspecific vasculopathy only in the appropriate clinical setting. 2. Infundibular dilatation (1.5 mm) at the origin of the left P1 PHARMACEUTICAL REPRESENTATIVE and left SCA. 3. No other major branch occlusion or s tenosis. If the report is "FINALIZED" it indicates that the attending/staff radiologist has reviewed the images and agrees with the resident's interpretation. Dictated By: Colton Pop MD, 2019 10:28 PM I have reviewed the study and agree with the findings in this report. Signed By: Deon Luis MD, 2019 11:19 PM Performing Organization Address [facility] one Number SMS * Syphilis Screen for Infection (04/05/2019 11:43 AM DATA ANALYTICS ANALYST) TPA Negative Negative, Equivocal [facility] Final Report Negative Negative [facility] Specimen Blood Performing Organization Address [facility] one Number [facility] [address] [place], [place] [id number] [phone] * HIV-1/HIV-2 ROUTINE SCREENING (04/05/2019 11:43 AM DATA ANALYTICS ANALYST) Pathologist [facility] HIV Ag/Ab Combo Negative Negative [facility] Specimen Blood Performing Organization Address [facility] one Number [facility] [address] [place] [address] * Copper, Serum (04/05/2019 11:43 AM DATA ANALYTICS ANALYST) Pathologist [facility] Copper, Serum 76Comment: 72 - 166 ug/dL [facility] Detection Limit = 5 Specimen Blood Narrative Performed At Test(s) 520679-Xcstps, Serum [facility] was developed and its performance amairani cteristics determined by [facility]. It has not been cleared or approved by the Food and Drug Administration. Performed at: 01 - [facility] [address] [id number] Emt Basic: Neal Diggs MD, Phone : [phone] Performing Organization Address [facility] one Number [facility] [address] [place] [address] * Sjgren's Antibodies (Anti-SS-A/Anti-SS-B) (04/05/2019 11:43 AM DATA ANALYTICS ANALYST) Sjogren's <0.2 0.0 - 0.9 AI [facility] Anti-SS-A Sjogren's <0.2 0.0 - 0.9 AI [facility] Anti-SS-B Specimen Blood Narrative Performed At Performed at: - [facility] [address] [place] [id number] Emt Basic: Tommy Jay MD, Phone: [phone] Performing Organization Address [facility] one Number [facility] [address] [place] [phone] * Vitamin B6 (04/05/2019 11:43 AM DATA ANALYTICS ANALYST) [facility] Vitamin B6 5.0 (<) 5.3 - 46.7 ug/L [facility] Specimen Blood Narrative Performed At Test(s) 376016-Zolozbl B6 [facility] was developed and its performance amairani cteristics determined by [facility]. It has not been cleared or approved by the Food and Drug Administration. Performed at: [place] [id number] Emt Basic: Neal Diggs MD, Phone : [phone] Performing Organization Address [facility] one Number [facility] [place] [address] * HTLV-I/II Antibodies, Qual. (04/05/2019 11:43 AM DATA ANALYTICS ANALYST) [facility] HTLV-I/II Negative Negative [facility] Antibodies, Qual Specimen Blood Narrative Performed At Performed at: [facility] [address] [id number] Emt Basic: Shanna Mendiola PhD, Phone: [phone] Performing Organization Address [facility] one Number [facility] [place] [address] * Heavy Metals Bld (04/05/2019 11:43 AM DATA ANALYTICS ANALYST) [facility] Lead, Blood None Detected 0 - 4 ug/dL [facility] Comment: Testing performed by Inductively coupled plasma/Mass Spectrometry. Environmental Exposure: WHO Recommendation <20 Occupational Exposure: OSHA Lead Std 40 TANISHA 30 Detection Limit = 1 This test was developed and its performance characteristics determined by [facility]. It has not been cleared or approved by the Food and Drug Administration. Arsenic, Blood 6Comment: 2 - 23 ug/L [facility] Detection Limit = 1 Mercury, Blood None Detected 0.0 - 14.9 ug/L [facility] Comment: Environmental Exposure: <15.0 Occupational Exposure: TANISHA - Inorganic Mercury: 15.0 Detection Limit = 1.0 Specimen Blood Narrative Performed At Test(s) 722133-Zdhoxez, Blood; 378239-Yjjskwk, Blood [facility] was developed and its performance amairani cteristics determined by [facility]. It has not been cleared or approved by the Food and Drug Administration. Performed at: - [facility] [id number] Emt Basic: Neal Diggs MD, Phone : [phone] Performing Organization Address [facility] one Number [facility] [address] [place] [id number] * Angiotensin Converting Enzyme (04/05/2019 11:43 AM DATA ANALYTICS ANALYST) SIM 54 14 - 82 U/L [facility] Specimen Blood Narrative Performed At Performed at: - [facility] [address] [place] [id number] Emt Basic: Neal Diggs MD, Phone : [phone] Performing Organization Address [facility] Ph one Number [facility] [address] [place] [address] * RA Factor (04/05/2019 11:43 AM DATA ANALYTICS ANALYST) RA <10 <14 IU/mL [facility] Specimen Blood Performing Organization Address [facility] one Number [facility] [address] [place] [address] [phone] * DEVON (04/05/2019 11:43 AM DATA ANALYTICS ANALYST) Pathologist [facility] DEVON Screen Negative Negative [facility] Specimen Blood Performing Organization Address [facility] one Number [facility] [address] [place] [address] [phone] after 02/24/2019 Insurance Type Payer Benefit Subscriber ID Effective Phone Address Plan / Dates Group [facility] xxxxxxxxx 2019-8 [address] [facility] [facility] [id number] [place] [address]
--- OUTSIDE RECORDS SUMMARY | 2020-02-25 20:18 | XMS REPORT | Continuity of Care Document ---
Author Author [facility] t Organization [facility] Address [address] [place] [address] Phone Unavailable Care Team Providers Care Supervisor Model Making Name Role Phone Keith Lala THORNE PCP Keith Lala THORNE Attphys Farzaneh Orosco Attphys Unavailable Gavin Del Rosario MD Attphys Rachel Juares PT Attphys Unavailable Lori Alcala MD Attphys Harding [facility], [facility] Attphys Unavailable [facility], Merary-Eric Attphys TEAM, 1-PT Attphys Unavailable WALI ALANIZ Attphys Unavailable Fina PERALTA Attphys Unavailable Crystal ZHENG Attphys Unavailable Ele KEYES Attphys Unavailable PETRNOA LOVE Attphys Unavailable KAIN PENALOZA Attphys Unavailable Payers Payer Name Policy Type Policy Number Effective Date Expiration Date [facility] COMMUN ITY PLAN [id number] [address] xxxxxxxxx 2019 00:00:00 2020 23:59:59 H [facility] MEDICAID STAR PLUS [id number] [id number] 2020 00:00 :00 [facility] [place] [id number] SSI RECIPIENT [id number] 2018 00:00:00 [facility] SSI [id number] 2019 00:00:00 2019 00:00:00 Problems Condition Name Condition Details Condition Category Status Onset Date Resolution Date Last Treatment Date Treating Clinician Comments Source Lower urinary tract symptoms (LUTS) Lower urinary tract symptoms (LUTS) Disease Active 2020-01-17 00:00:00 [facility] Elevated PSA Elevated PSA Disease Active 2020-01-17 00:00:00 [facility] Chronic left shoulder pain Chronic left shoulder pain Disease Active 2019-04-02 00:00:00 [facility] Decreased range of motion of left shoulder Decreased r nelson of motion of left shoulder Disease Active 2019-04-02 00:00:00 [facility] Impaired tolerance of activity Impaired tolerance of activity Disea se Active 2019-04-02 00:00:00 [facility] Pyloric spasm Pyloric spasm Disease Active 2018-05-22 00:00:00 [facility] 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 Abdominal hyperesthesia - abd wall hyper parathesia- EMG showed FINDINGS OF CHRONIC RE-INNERVATION POTENTIALS ON NEEDLE EMG AT THE LEVEL OF THE LEFT T12 PARASPINALS. Disease Active 2018-03-16 00:00:00 [facility] Essential hypertension, benign Essential hypertension, benign Disea se Active 2018-03-16 00:00:00 [facility]alth Type 2 diabetes mellitus with complicati on, without long-term current use of insulin Type 2 diabetes mellitus with complicati on, without long-term current use of insulin Disease Active 2018-03-16 00:00:00 [facility] Dyslipidemia Dyslipidemia Disease Active 2018-03-16 00:00:00 [facility] Epigastric abdominal pain Epigastric abdominal pain Disease Ac tive 2018-01-02 00:00:00 [facility] Atypical chest pain Atypical chest pain Disease Active 2018-01-01 00:00 :00 [facility] Allergies, Adverse Reactions, Alerts Allergy Name Allergy Type Status Severity Reaction(s) Onset Date Inacti ve Date Treating Clinician Comments Source No Known Allergies DA Active U 2017-12-31 00:00:00 [facility] No Known Allergies DA Active U 2017-12-19 00:00:00 [facility] No Known Contrast Allergies DA Active U 2003-09-20 00:00: 00 [facility] No Known Drug Allergies DA Active U 2003-09-20 00:00:00 [facility] No Known Food Allergies DA Active U 2003-09-20 00:00:00 [facility] No Known Other Allergies DA Active U 2003-09-20 00:00:00 [facility] Social History Social Habit Start Date Stop Date Quantity Comments Source Sex Assigned At [facility] Exposure to SARS-CoV-2 (event) Not sure [facility] Alcohol intake 2020-01-30 00:00:00 2020-01-30 00:00:00 Current drinker of alcohol (finding) [facility] History SDOH Food Worry 2019-01-08 00:00:00 2019-01-08 00:00:00 1 [facility] History [facility] Food Scarcity 2019-01-08 00:00:00 2019-01-08 00:00:00 1 [facility] Smoking Status Start Date Stop Date Source Never smoker [facility] Medications Ordered Medication Name Filled Medication Name Start Date Stop Da te Current Medication? Ordering Clinician Indication Dosage Frequency Signature (SIG) Comments Components Source pioglitazone (ACTOS) 15 mg tablet 2020-01-30 00:00:00 Yes Type 2 diabetes mellitus with complication, without long-term current use of insulin 15mg QD Take 1 tablet by mouth daily. [facility] glimepiride (AMARYL) 2 mg tablet 2020-01-30 00:00:00 Yes Type 2 diabetes mellitus with complication, without long-term current use of insulin 2mg QD Take 1 tablet by mouth daily (with breakfast). [facility] amLODIPine (NORVASC) 10 mg tablet 2020-01-30 00:00:00 Yes Essential hypertension, benign 10mg QD Take 1 tablet by mouth daily. [facility] losartan (COZAAR) 50 mg tablet 2020-01-30 00:00:00 Yes Essential hypertension, benign 100mg QD Take 2 tablets by mouth daily. [facility] Enbbh-3-YUG-EPA-Fish Oil (FISH OIL) 1,000 mg (120 mg-180 mg) cap 2020-01-30 00:00:00 Yes Hypertriglyceridemia Take by mouth. [facility] tropicamide (MYDRIACYL) 0.5 % ophthalmic solution 2020-01-30 00:00:00 2020-01-30 23:59:00 No Type 2 diabetes lindsey itus with complication, without long-term current use of insulin 1[drp] Instill 1 Drop in each eye once as needed for up to 1 dose (for poor retina scan image). [facility] ciprofloxacin HCl (CIPRO) 500 mg tablet 00:00:00 2020-01-20 23:59:00 No Elevated PSA 500mg Q.5D Start day be fore prostate biopsy. Take 1 tablet by mouth 2 times daily for 3 days [facility] sodium phosphates (FLEET ENEMA) 19-7 gram/118 mL enema 2020-01-17 00:00:00 2020-01-17 23:59:00 No Elevated PSA 1{bottle} Ins ert 1 Bottle rectally once for 1 dose. [facility] glimepiride (AMARYL) 2 mg tablet 2020-01-09 00:00:00 2020-01 00:00:00 No Type 2 diabetes mellitus with complication, without long-term current use of insulin 2mg QD Take 1 tablet by mouth daily (with breakfast). [facility] pioglitazone (ACTOS) 15 mg tablet 2020-01-09 00:00:00 2019 00:00:00 No Type 2 diabetes mellitus with complicati on, without long-term current use of insulin 15mg QD Take 1 tablet by mouth daily. [facility] metFORMIN (GLUCOPHAGE) 1,000 mg tablet 2019-12-02 00:00:00 Yes Type 2 diabetes mellitus with complication, without long-term current use of insulin 1000mg Take 1 tablet by mouth 2 times daily (with meals). [facility] hydroCHLOROthiazide (HYDRODIURIL) 25 mg tablet 2019-12-02 00 :00:00 Yes Essential hypertension, benign 25mg QD Take 1 tablet by mouth george poe [facility] dexlansoprazole (DEXILANT) 30 mg delayed release capsule 2019-11-26 00:00:00 Yes Pyloric spasm 30mg QD Take 1 capsule by mouth da dave. [facility] amLODIPine (NORVASC) 10 mg tablet 2019-11-26 00:00:00 2019 00:00:00 No Essential hypertension, benign 10mg QD Take 1 tablet by mo uth daily. [facility] glimepiride (AMARYL) 2 mg tablet 2019-11-26 00:00:00 2020-01 00:00:00 No Type 2 diabetes mellitus with complication, without long-term current use of insulin 2mg QD Take 1 tablet by mouth daily (with breakfast). [facility] pioglitazone (ACTOS) 15 mg tablet 2019-11-26 00:00:00 2019 00:00:00 No Type 2 diabetes mellitus with complicati on, without long-term current use of insulin 15mg QD Take 1 tablet by mouth daily. [facility] amLODIPine (NORVASC) 10 mg tablet 2019-10-21 00:00:00 2019 00:00:00 No Essential hypertension, benign 10mg QD Take 1 tablet by mo uth daily. [facility] glimepiride (AMARYL) 2 mg tablet 2019-10-21 00:00:2019-11 00:00:00 No Type 2 diabetes mellitus with complication, without long-term current use of insulin 2mg QD Take 1 tablet by mouth daily (with breakfast). [facility] pioglitazone (ACTOS) 15 mg tablet 2019-10-21 00:00:2019 00:00:00 No Type 2 diabetes mellitus with complicati on, without long-term current use of insulin 15mg QD Take 1 tablet by mouth daily. [facility] pregabalin (LYRICA) 100 mg capsule 2019-10-18 00:00:00 Yes Abdominal hyperesthesia 100mg Q.5D Take 1 capsule by mouth 2 times daily. [facility] amLODIPine (NORVASC) 10 mg tablet 2019-07-30 00:00:00 2019 00:00:00 No Essential hypertension, benign 10mg QD Take 1 tablet by mo uth daily. [facility] glimepiride (AMARYL) 2 mg tablet 2019-07-30 00:00:00 2019-10 00:00:00 No Type 2 diabetes mellitus with complication, without long-term current use of insulin 2mg QD Take 1 tablet by mouth daily (with breakfast). [facility] pioglitazone (ACTOS) 15 mg tablet 2019-07-30 00:00:00 2019 00:00:00 No Type 2 diabetes mellitus with complicati on, without long-term current use of insulin 15mg QD Take 1 tablet by mouth daily. [facility] dexlansoprazole (DEXILANT) 30 mg delayed release capsule 2019-06-03 00:00:00 2019-11-25 00:00:00 No Pyloric spasm 30mg QD Take 1 capsule by mouth daily. [facility] pregabalin (LYRICA) 100 mg capsule 2019-04-05 00:00:00 00:00:00 No Abdominal hyperesthesia 100mg Q.5D Take 1 capsule by mouth 2 times daily. [facility] pregabalin (LYRICA) 100 mg capsule 2019-04-05 00:00: 00:00:00 No Abdominal hyperesthesia 100mg Q.5D Take 1 capsule by mouth 2 times daily. [facility] hydroCHLOROthiazide (HYDRODIURIL) 25 mg tablet 2 00:00:2019-12-02 00:00:00 No Essential hypertension, benign 25mg QD Take 1 tablet by mouth daily. [facility] metFORMIN (GLUCOPHAGE) 1,000 mg tablet 2019-02-02 1 00:00:00 2019-12-02 00:00:00 No Type 2 diabetes lindsey itus with complication, without long-term current use of insulin 1000mg Take 1 tablet by mouth 2 times daily (with meal s). [facility] lidocaine (RECTICARE) 5 % topical cream 2019-01-08 00:00:00 Yes Abdominal hyperesthesia QD Apply to affected area daily. [facility] blood glucose meter (PRECISION XTRA GLUCOMETER) 2019-01-02 0 0:00:00 Yes Type 2 diabetes mellitus with complication, without long-term current use of insulin Use as directed.. [facility] blood glucose (PRECISION XTRA TEST STRIPS) test strips 2019-01-02 00:00:00 Yes Type 2 diabetes mellitus wit h complication, without long-term current use of insulin Use 2 times weekly ( once per day on Mon,) to test blood sugar. [facility] lancets 28 gauge 2019-01-02 00:00:00 Yes Type 2 diabetes mellitus with complication, without long-term current use of insulin Use 2 times weekly as directed. [facility] amLODIPine (NORVASC) 10 mg tablet 2019-01-02 00:00:00 2019 00:00:00 No Essential hypertension, benign 10mg QD Take 1 tablet by mo ut daily. [facility] glimepiride (AMARYL) 2 mg tablet 2019-01-02 00:00:00 2019-07 00:00:00 No Type 2 diabetes mellitus with complication, without long-term current use of insulin 2mg QD Take 1 tablet by mouth daily (with breakfast). [facility] pioglitazone (ACTOS) 15 mg tablet 2019-01-02 00:00:00 2019 00:00:00 No Type 2 diabetes mellitus with complicati on, without long-term current use of insulin 15mg QD Take 1 tablet by mouth daily. [facility] dexlansoprazole (DEXILANT) 30 mg delayed release capsule 2018-10-10 00:00:00 2019-06-02 00:00:00 No Pyloric spasm 30mg QD Take 1 capsule by mouth daily. [facility] losartan (COZAAR) 50 mg tablet 2018-09-12 00:00:00 2020-01-03 00:00:00 No Essential hypertension, benign 100mg QD Take 2 tablets by mouth trupti ly. [facility] pregabalin (LYRICA) 75 mg capsule 2018-08-09 00:00:00 2019 00:00:00 No Abdominal hyperesthesia 75mg Q.5D Take 1 capsule by mouth 2 times daily. [facility] polyethylene glycol (GOLYTELY) 236-22.74-6.74 -5.86 gram ora l solution 2018-08-07 00:00:00 Yes Occult blood positive stool Add lukewarm drinking water to the fill hali (4 liters) and shake. Drink as directed by your doctor.. [facility] cyanocobalamin, vitamin B-12, 1,000 mcg tablet 2018-04-30 00 :00:00 Yes Low serum vitamin B12 1000ug QD Take 1 tablet by mouth daily. [facility] polyethylene glycol (GOLYTELY) 236-22.74-6.74 -5.86 gram ora l solution 2018-03-21 00:00:00 Yes Fecal occult blood test positi ve Add lukewarm drinking water to the fill hali (4 liters) and shake. Drink as directed by your doctor.. [facility] metoprolol succinate (TOPROL XL) 50 mg extended release tabl et 2018-03-16 00:00:00 Yes Essential hypertension, benign 50mg QD Take 1 tablet by mouth daily. [facility] aspirin (ASPIRIN) 81 mg chewable tablet 2018-01-02 00:00:00 Yes Atypical chest pain 81mg QD Chew and swallow 1 tablet by mouth daily. [facility] Immunizations Ordered Immunization Name Filled Immunization Name Date Status Comments Source Influenza, Vaccine<FLUCELVAX>(Multi-Dose) 2020-02-14 00:00 :00 Completed [facility] Vital Signs Vital Name Observation Time Observation Value Comments Source Systolic blood pressure 2019-06-06 08:59:00 133 mm[Hg] [facility] Diastolic blood pressure 2019-06-06 08:59:00 74 mm[Hg] [facility] Heart rate 2019-06-06 08:59:00 108 /min [facility] Body temperature 2019-04-05 08:47:00 37 Rhona [facility] Respiratory rate 2019-04-05 08:47:00 18 /min [facility] Body height 2019-04-05 08:47:00 177.8 cm [facility] Body weight 2019-04-05 08:47:00 112.038 kg [facility] BMI 2019-04-05 08:47:00 35.44 kg/m2 [facility] Procedures Procedure Date / Time Performed Performing Clinician Sour e TOTAL PROTEIN/CREATININE RATIO, URINE 2020-02-14 14:58:00 Lala Parker [facility] LIVER PROFILE 2020-02-14 14:58:00 Lala Parker [facility] BASIC METABOLIC PANEL 2020-02-14 14:58:00 Lala Parker [facility] HEPATITIS PANEL 2020-02-14 14:58:00 [facility] G[facility] GLUTAMYL TRANSFERASE (GGT) 2020-02-14 14:58:00 Lala Parker [facility] OPHTHALMOLOGY RETINAL SCAN 2020-02-14 02:49:02 Lala Parker [facility] HEMOGLOBIN A1C 2020-01-15 12:41:00 KeithLala bryan [facility] COMPREHENSIVE METABOLIC PANEL 2020-01-15 12:41:00 KeithLala bryan [facility] CBC/DIFF 2020-01-15 12:41:00 KeithLala bryan [facility] h LIPID PROFILE 2020-01-15 12:41:00 KeithLala bryan [facility] h THYROID STIMULATING HORMONE (TSH) 2020-01-15 12:41:00 KeithZackary bryan [facility] PROSTATE SPECIFIC ANTIGEN (PSA) 2020-01-15 12:41:00 KeithLala bryan [facility] VITAMIN B12 2020-01-15 12:41:00 Lala Parker [facility] MICROALBUMIN / CREATININE URINE RATIO 2020-01-15 12:41:00 KeithLala bryan [facility] CBC 2020-01-15 12:41:00 Lala Parker h URINALYSIS 2020-01-15 12:41:00 KeithLala bryan [facility] h URINALYSIS 2020-01-15 12:41:00 [facility] W AND W/O CONTRAST 2019-05-01 07:58:22 Nav Bernal [facility] CTA HEAD W CONTRAST 2019 16:32:11 Nav Bernal [facility] BASIC METABOLIC PANEL 2019-04-05 11:43:00 Nav Bernal [facility] ANGIOTENSIN CONVERTING ENZYME 2019-04-05 11:43:00 Nav Bernal [facility] RA FACTOR 2019-04-05 11:43:[address] [facility] HIV AG/AB COMBO ROUTINE SCREENING 2019-04-05 11:43:00 Aniket Bernal [facility] SYPHILIS SCREEN FOR INFECTION 2019-04-05 11:43:00 Nav Bernal [facility] HEAVY METALS BLD 2019-04-05 11:43:00 Nav Bernal [facility] COPPER, SERUM 2019-04-05 11:43:[address] [facility] SJOGREN'S AB 2019-04-05 11:43:[address] [facility] VITAMIN B6 2019-04-05 11:43:[address] [facility] HTLV-I/II AB QL 2019-04-05 11:43:00 Nav Bernal [facility] DEVON 2019-04-05 11:43:00 Nav Bernal [facility] Plan of Care Planned Activity Planned Date Details Comments Source Future Scheduled Test 2021-02-13 00:00:00 DM Retinal Exam (Y early) [code = DM Retinal Exam (Yearly)] [facility] Scheduled Test 2021-01-14 00:00:00 Hemoglobin A1c ashley surement (procedure) [code = 07344375] [facility] Scheduled Test 2019-10-24 00:00:00 DM Foot Exam (Year ly) [code = DM Foot Exam (Yearly)] [facility] Scheduled Test 2019-03-20 00:00:00 Screening for puja gnant neoplasm of colon (procedure) [code = 385947901] [facility] Encounters Start Date/Time End Date/Time Encounter Type Admission Type [facility] Care Department Encounter ID Source 2020-01-20 08:59:00 2020-01-20 23:59:00 Outpatient MDA MDA [id number] [facility] 2020-01-17 00:00:00 2020-01-17 00:00:00 Outpatient [facility] [id number] [facility] 2020-01-16 00:00:00 2020-01-16 00:00:00 Outpatient [facility] [id number] [facility] 2019-12-25 00:00:00 2019-12-25 00:00:00 Outpatient LALA PARKER [facility] [id number] [facility] 2019-12-02 07:29:35 2019-12-02 12:23:28 Outpatient LALA PARKER [facility] [id number] [facility] 2019-06-19 00:00:00 2019-06-19 00:00:00 Outpatient RACHEL JUARES [facility] [id number] [facility] 2019-06-18 00:00:00 2019-06-18 00:00:00 Outpatient [facility] [id number] [facility] 2019-06-10 00:00:00 2019-06-10 00:00:00 Outpatient [facility] [id number] [facility] 2019-06-05 10:39:15 2019-06-05 12:16:59 Outpatient RACHEL JUARES [facility] [id number] [facility] 2019-06-04 00:00:00 2019-06-04 00:00:00 Outpatient [facility] [id number] [facility] 2019-05-30 06:53:01 2019-05-30 07:55:07 Outpatient RACHEL JUARES [facility] [id number] [facility] 2019-05-10 00:00:00 2019-05-10 00:00:00 Outpatient [facility] [id number] [facility] 2019-05-01 06:54:18 2019-05-01 08:00:16 Outpatient [facility] [id number] [facility] 2019-04-19 00:00:00 2019-04-19 00:00:00 Outpatient [facility] [id number] [facility] 2019 15:02:28 2019 16:32:54 Outpatient [facility] [id number] [facility] 2019-04-08 08:36:01 2019-04-08 08:36:01 Outpatient [facility] [id number] [facility] 2019-04-05 11:36:11 2019-04-05 12:57:38 Outpatient AL ALCALA [facility] [id number] [facility] 2019-04-05 08:47:16 2019-04-05 10:48:34 Outpatient VIV AL [facility] [id number] [facility] 2019-04-05 00:00:00 2019-04-05 00:00:00 Outpatient AL ALCALA [facility] [id number] [facility] 2019-04-02 09:40:24 2019-04-02 11:15:25 Outpatient TEAM, 1-PT [id number] [facility] 2019-03-05 00:00:00 2019-03-05 00:00:00 Outpatient [facility] [id number] [facility] 2019-02-21 11:41:51 2019-02-21 11:54:22 Outpatient LALA PARKER [facility] [id number] [facility] 2019-02-21 11:34:50 2019-02-21 11:40:26 Outpatient LALA PARKER [facility] [id number] [facility] 2019-02-21 10:15:00 2019-02-21 10:53:36 Outpatient LALA PARKER [facility] [id number] [facility] 2019-02-21 00:00:00 2019-02-21 00:00:00 Outpatient LALA PARKER [facility] [id number] [facility] 2019-02-13 16:10:04 2019-02-13 16:10:04 Outpatient [facility] [id number] [facility] 2019-01-08 13:49:54 2019-01-08 15:36:29 Outpatient FRANCK ALANIZ [facility] [id number] [facility] 2019-01-04 10:01:18 2019-01-04 10:01:18 Outpatient [facility] [id number] [facility] 2019-01-03 09:54:19 2019-01-03 09:54:45 Outpatient LALA PARKER [facility] [id number] [facility] 2019-01-03 09:40:11 2019-01-03 09:45:15 Outpatient LALA PARKER [facility] [id number] [facility] 2019-01-03 00:00:00 2019-01-03 00:00:00 Outpatient LALA PARKER [facility] [id number] [facility] 2019-01-02 15:30:14 2019-01-02 16:31:24 Outpatient LALA PARKER [facility] [id number] [facility] 2018-12-27 08:23:04 2018-12-27 08:24:17 Outpatient LALA PARKER [facility] [id number] [facility] 2018-12-27 00:00:00 2018-12-27 00:00:00 Outpatient MATTHEW PERALTA [facility] [id number] [facility] 2018-12-25 00:00:00 2018-12-25 00:00:00 Outpatient [facility] [id number] [facility] 2018-10-29 08:30:44 2018-10-29 08:31:43 Outpatient MATTHEW PERALTA [facility] [id number] [facility] 2018-10-29 00:00:00 2018-10-29 00:00:00 Outpatient MATTHEW PERALTA [facility] [id number] [facility] 2018-10-24 11:02:15 2018-10-24 11:31:57 Outpatient MATTHEW PERALTA [facility] [id number] [facility] 2018-10-23 09:12:16 2018-10-23 09:15:06 Outpatient MATTHEW PERALTA [facility] [id number] [facility] 2018-10-23 07:49:41 2018-10-23 09:00:01 Outpatient MATTHEW PERALTA [facility] [id number] [facility] 2018-10-23 00:00:00 2018-10-23 00:00:00 Outpatient MATTHEW PERALTA [facility] [id number] [facility] 2018-09-19 09:18:47 2018-09-19 11:47:57 Outpatient SARA ZHENG [facility] [id number] [facility] 2018-08-16 09:53:26 2018-08-16 09:56:08 Outpatient JOZACK ALAMOAA H [facility] [id number] [facility] 2018-08-09 16:02:02 2018-08-09 16:23:23 Outpatient JOADZACKAA H [facility] [id number] [facility] 2018-08-07 12:11:15 2018-08-07 14:24:34 Outpatient PETRONA LOVE [facility] [id number] [facility] 2018-07-24 00:00:00 2018-07-24 00:00:00 Outpatient [facility] [id number] [facility] 2018-07-06 10:38:18 2018-07-06 11:19:04 Outpatient JOZACK ALAMOAA H [facility] [id number] [facility] 2018-06-26 00:00:00 2018-06-26 23:59:00 Outpatient JOZACK ALAMOAA H [facility] [id number] [facility] 2018-06-26 09:01:43 2018-06-26 09:03:00 Outpatient ZACK KEYESAA H [facility] [id number] [facility] 2018-06-06 12:00:17 2018-06-06 12:05:53 Outpatient ZACK KEYESAA H [facility] [id number] [facility] 2018-05-22 07:57:40 2018-05-22 08:54:57 Out[facility]AA [facility] [facility] [id number] [facility] 2018-05-17 07:13:39 2018-05-17 23:59:00 Outpatient [facility] [id number] [facility] 2018-05-11 07:31:00 2018-05-11 09:42:37 Outpatient CHAD PENALOZA [facility] [id number] [facility] 2018-04-30 10:48:14 2018-04-30 10:48:14 Outpatient [facility] [id number] [facility] 2018-03-20 10:56:10 2018-03-20 10:56:10 Outpatient [facility] [id number] [facility] 2018-03-16 12:09:19 2018-03-16 12:09:19 Outpatient [facility] [id number] [facility] 2018-03-16 12:02:55 2018-03-16 12:02:55 Outpatient [facility] [id number] [facility] 2018-03-16 10:31:57 2018-03-16 10:31:57 Outpatient [facility] [id number] [facility] 2018-01-11 00:00:00 2018-01-11 00:00:00 Outpatient [facility] [id number] [facility] 2018-01-02 00:31:07 2018-01-02 00:31:07 Emergency [facility] [id number] [facility] 2018-01-01 21:43:43 2018-01-01 21:43:43 Emergency [facility] [id number] [facility] 2018-01-01 19:35:10 2018-01-01 19:35:10 Emergency [facility] [id number] [facility] Results Test Description Test Time Test Comments Results Result Comments Source Hepatitis Panel 2020-02-14 22:39:00 Test Item Hepatitis C Virus (HCV) Antibody (test code = 13924-7) Negative Negative Hep B Surface Ag (test code = 5196-1) Negative Negative Hep A Vir Ab IgM (test code = 52882-7) Negative Negative Hep B Core Ab IgM (test code = 57120-5) Negative Negative Lab Interpretation (test code = 52847-3) [facility] [id number] 21:37:00* Test Item Value Reference Range Interpretation Comments Sodium (test code = 2951-2) 133 mmol/L 136-145 L Potassium (test code = 2823-3) 4.1 mmol/L 3.5-5.1 Chloride (test code = 2075-0) 93 mmol/L 98-107 L CO2 (test code = 37255628) 29 mmol/L 21-31 Urea Nitrogen (test code = 32897321) 17.0 mg/dL 7-25 Creatinine (test code = 21576034) 0.9 mg/dL 0.7-1.3 Glucose (test code = 62446631) 399 mg/dL 70-110 H Calcium (test code = 68286451) 10.1 mg/dL 8.6-10.3 GFR, Estimated (test code = 91782979) 86 >=90 mL/min/1.73 m2 L Anion Gap (test code = 23562575) 11 mmol/L 5-16 Lab Interpretation (test code = 99204-9) Abnormal [facility] [id number] 21:37:00* Test Item Value Reference Range Interpretation Comments Bilirubin, Total (test code = 2885-2) 1.3 mg/dL 0.2-1.2 H Alkaline Phosphatase (test code = 50636187) 62 U/L 34-104 AST (test code = 36329129) 38 U/L 13-39 Direct Bilirubin (test code = 1968-7) 0.2 mg/dL 0-0.2 ALT (test code = 14337677) 70 U/L 7-52 H Albumin (test code = 16224-6) 4.5 g/dL 4.2-5.5 Lab Interpretation (test code = 58662-7) [facility]normal [facility]Crea Ratio,[id number] 21:13:00* Test Item Value Reference Range Interpretation Comments Creatinine, Urine (test code = 91571260) 70 mg/dL 20-370 Total Protein, Urine (test code = 92405890) 0.08 g/L <0.19 Total Protein/Creatinine Ratio, Urine (test code = 58726102) 0.1 % 0- 0.5 % Lab Interpretation (test code = 94519-0) Normal [facility]em[facility] [id number] 23:47:00* Test Item Value Reference Range Interpretation Comments Hemoglobin A1c (test code = 4548-4) 8.9 % 4.3-6.1 H Estimated Average Glucose (test code = 31202474) 209 mg/dL 70-11 0 H Lab Interpretation (test code = 64598-6) Abnormal [facility] / Creatinine Urine Ppbfg7709-70-77 21:51:00* Test Item Value Reference Range Interpretation Comments Microalbumin, Random (test code = 61275168) 15.2 mg/dL <30.0 Creatinine, Urine (test code = 57505336) 398 mg/dL 20-370 H Urine Microalbumin (test code = 94248478) 38.2 mg/g 0-30 H Lab Interpretation (test code = 21497-7) [facility]normal [id number] 21:46:00* Test Item Value Reference Range Interpretation Comments Vitamin B12 (test code = 71334954) 435 pg/mL See comment Normal: 180-914 pg/mLIntermittent: 145-180 pg/mLDeficient: <=145.0 pg/mL [facility] HospitalPedpwfQnhlnwcxmf6365-32-61 21:44:00* Test Item Value Reference Range Interpretation Comments Color (test code = 66325365) Yellow Colorless, Straw, Yellow Clarity (test code = 79714231) Clear Clear Spec [place], Ur (test code = 86507873) 1.026 1.001-1.035 pH, Ur (test code = 97541430) 5.0 5.0-8.0 Protein, Ur (test code = 15601064) 2+ Negative mg/dL A Glucose, Ur (test code = 10136748) Negative Negative mg/dL Ketone, Ur (test code = 15783940) trace Negative mg/dL A Bilirubin, Ur (test code = 10970374) Negative Negative mg/dL Nitrite, Ur (test code = 69162579) Negative Negative Leukocyte (test code = 62966729) Negative Negative mg/dL Blood, Ur (test code = 74923796) Negative Negative mg/dL RBC (test code = 17867081) <1 0- 4 /HPF WBC (test code = 20714397) 2 0- 5 /HPF Epithelial Cell (test code = 85943518) 1 <=1 /HPF Mucous (test code = 03915762) Present None seen /HPF A Urobilinogen, Ur (test code = 53525103) 1.0 EU/dL <1.0 A Lab Interpretation (test code = 41284-1) Abnormal [facility] HospitalTSH [Thyroid Stimulating Hormone]2020-01-15 21:34:00* Test Item Value Reference Range Interpretation Comments TSH (test code = 05507509) 3.96 0.45- 5.33 uIU/mL Lab Interpretation (test code = 44003-5) Normal [facility] HospitalXoysatHWA8943-64-89 21:31:00* Test Item Value Reference Range Interpretation Comments PSA (test code = 52444975) 5.720 ng/mL <=4.000 H Lab Interpretation (test code = 01983-4) Abnormal [facility] HospitalLipid Tiubwbn8524-04-05 21:27:00* Test Item Value Reference Range Interpretation Comments Cholesterol (test code = 2093-3) 175.0 mg/dL <=200.0 Triglyceride (test code = 33958691) 388 mg/dL <150 H HDL (test code = 2085-9) 37.0 mg/dL See Reference Range Narrative . LDL (test code = 95305-3) 60 mg/dL <100 Op timal: < 100.0 mg/dLNear Optimal: 120-129 mg/dLBorderline: 130-159 mg/dLHigh: 160-189 mg/dLVery High: >=190 mg/dL Patient Fasting? (test code = 86644633) Yes Lab Interpretation (test code = 35603-8) [facility] [id number] 21:27:00* Test Item Value Reference Range Interpretation Comments Sodium (test code = 2951-2) 140 mmol/L 136-145 Potassium (test code = 2823-3) 3.3 mmol/L 3.5-5.1 L Chloride (test code = 2075-0) 98 mmol/L 98-107 CO2 (test code = 95688815) 29 mmol/L 21-31 Glucose (test code = 23930384) 181 mg/dL 70-110 H Calcium (test code = 23724003) 9.7 mg/dL 8.6-10.3 Urea Nitrogen (test code = 26865890) 14.0 mg/dL 7-25 Creatinine (test code = 81206465) 0.9 mg/dL 0.7-1.3 Alkaline Phosphatase (test code = 06849241) 57 U/L 34-104 ALT (test code = 91017835) 122 U/L 7-52 H AST (test code = 69177807) 85 U/L 13-39 H Total Protein (test code = 2885-2) 7.4 g/dL 6-8.3 H GFR, Estimated (test code = 86382141) 86 >=90 mL/min/1.73 m2 L Albumin (test code = 97682-4) 4.6 g/dL 4.2-5.5 Anion Gap (test code = 09784232) 13 mmol/L 5-16 Lab Interpretation (test code = 85241-3) Abnormal [facility]/Wvoz3610-17-67 21:01:00* Test Item Value Reference Range Interpretation Comments WBC (test code = 6690-2) 8.7 K/uL 4.5-12 RBC (test code = 789-8) 5.47 4.60- 6.20 M/uL Hemoglobin (test code = 718-7) 16.5 g/dL 14-18 Hematocrit (test code = 4544-3) 48.1 % 40-54 MCV (test code = 787-2) 87.9 fL 82-92 MCH (test code = 785-6) 30.2 pg 27-31 MCHC (test code = 786-4) 34.3 g/dL 32-36 RDW (test code = 02859-1) 43.4 fL 35.1-43.9 Platelet (test code = 777-3) 193 K/uL 150-400 Mean Platelet Volume (test code = 84773-4) 10.7 fL 9.4-12.4 Percent NRBC (test code = 08938026) 0.0 % Neutrophil (test code = 770-8) 63.4 % 34-67.9 Lymphs (test code = 736-9) 22.2 % 21.8-50 Monocytes (test code = 5905-5) 10.5 % 5.3-12 Eos (test code = 713-8) 2.6 % 0.8-5 Basos (test code = 706-2) 0.8 % 0.2-1.2 Immature Granulocytes (test code = 68638821) 0.5 % 0-0.5 Neutrophils (Absolute) (test code = 58230683) 5.50 K/uL 1.78-5.3 6 H Lymphs (Absolute) (test code = 49604360) 1.93 K/uL 1.32-3.57 Monocytes(Absolute) (test code = 91312642) 0.91 K/uL 0.3-0.82 H Eos (Absolute) (test code = 26153542) 0.23 K/uL 0.04-0.54 Baso (Absolute) (test code = 18102000) 0.07 K/uL 0.01-0.08 Immature Grans (Abs) (test code = 79325836) 0.04 K/uL 0-0.03 H Absolute NRBC (test code = 44858018) 0.00 K/uL Lab Interpretation (test code = 97194-4) Abnormal [facility] BRAIN W AND W/O [id number] 13:53:08IMPRESSION: 1. No acute intracranial abnormalities.2. Mild generalized cerebral volume loss. Mild supratentorial chronicmicrovascular ischemic change. Signed By: Rey Field MD, 05/01/2019 1:53 PM Interface, Rad/Mammog In - 05/01/2019 1:58 PM [facility]O CONTRASTHISTORY: Ataxia, stroke suspectedCOMPARISON: CTA of the head 2019TECHNIQUE:Multiplanar, multisequence MRI of the brain (includingdiffusion-weighted imaging) was performed before and after theadmi nistration of intravenous, gadolinium based contrast. A total of 10image series were submitted for interpretation.DISCUSSION:Scalp/bone marrow: Unremarkable.Bra in sulci: Mildly prominent.Ventricles: Compensatory dilatation.Extra-axial spac es: No masses or fluid collections.Parenchyma:Scattered T2/FLAIR hyperintense fo ci throughout the supratentorial whitematter are likely chronic microvascular is chemic changes.Otherwise, no mass, hemorrhage, or acute vascular insults.No abno rmal parenchymal, leptomeningeal, or dural enhancement is seen.Vessels: Normal f low voids in major arteries and veins.Sellar/Suprasellar region: No abnormaliti es.Craniocervical junction: No abnormalities.Incidental findings: None.IMPRESSIO NIMPRESSION: 1. No acute intracranial abnormalities.2. Mild generalized cerebr al volume loss. Mild supratentorial chronicmicrovascular ischemic change.Signed By: Rey Field MD, 05/01/2019 1:53 PMC[facility] HospitalCTA HEAD W CONTRAST 2019 23:19:25IMPRESSION: Head CT with and without contrast:1. Mild generalized parenchymal volume loss.2. Mild chronic microvascular ischemic changes. Intracranial CTA:1. Luminal irregularity with moderate stenosis in the right P2 PCAsegment and moderate stenosis at the left SCA origin which may be due toatherosclerosis. Consider other nonspecific vasculopathy only in theappropriate clinical setting.2. Infundibular dilatation (1.5 mm) at the origin of the left P1 PCAand left SCA.3. No other major branch occlusion or stenosis. If the report is "FINALIZED" it indicates that the attending/staffradiologist has reviewed the images and agrees with the resident'sinterpretation. Dictated By: Colton Pop MD, 2019 10:28 PM I have reviewed the study and agree with the findings in this report. Signed By: Deon Luis MD, 2019 11:19 PM Interface, Rad/Mammog In - 2019 11:24 PM CSTExams: Intracranial CT angiogramHistory: Ataxia, stroke suspected Abd ominal hyperesthesia Comparison studies: None.Technique: Axial CT scans obtained from the skull base to the vertex withoutcontrastAxial images obtained through the intracranial region during injectionof IV contrast.Axial CT scans obtained f rom the skull base to the vertex after the CTA.Coronal and sagittal reconstructi ons obtained from the axial data. Foroptimization of anatomic evaluation, multip lanar reconstruction, maximumintensity projections, and advanced 3-D off-line po stprocessing were obtained on a dedicated stand-alone workstation under the dire ctsupervision of the interpreting physician.IV Contrast 100 cc of Omnipaque.Com plication: NoneRadiation dose: Total DLP: 2461.83 mGy*cmEstimated Effective Dose : DLP x 0.031 mSvFINDINGS: Head CT without and with IV contrast: Scalp/Skull:No abnormalities.Brain sulci: Mildly prominent.Ventricles: Mild compensatory dilata tion. No hydrocephalus.Extra-axial spaces:No masses or fluid collections.Parench yma: No enhancing abnormalities.No masses, acute hemorrhage or acute or chronic cortical insults.A few subtle hypodensities in the supratentorial white matterno nspecific but are most compatible with chronic microvascular ischemicchanges.Dur al sinuses: No abnormal densities.Sellar/Suprasellar region: Intact.Skull base and Craniocervical junction: Intact.Intracranial CTA:Anterior Circulation :Inter nal carotid arteries: Patent with minimal nonstenotic calcifiedplaque in the darryl ateral paraophthalmic segments.Anterior cerebral arteries: Patent, no proximal b ranch occlusion orstenosis.Middle cerebral arteries: Patent, no proximal branch occlusion orstenosis.Punctate, nonspecific in the setting of atherosclerotic angeles cificationwithin the left clinoid ICA segment.Posterior circulation:Vertebral ar teries: Patent, no abnormalities. Basilar artery: Patent, no stenosis. There is 1.5 mm infundibular-likedilatation at the junction of the origins of the left P1 PHYSICIST SOLID STATE and leftsuperior cerebellar artery (SCA) origin as well as moderate focalst enosis at the left SCA origin which is by visualized on the coronalMIP reformat (series 501, image 10). Posterior cerebral arteries: Patent, no proximal branch occlusion. Theleft P1 segment is hypoplastic and there is a prominent left poste riorcommunicating artery (-time left PHYSICIST SOLID STATE origin). Multifocal luminalirregul arity present within the right P2 PHYSICIST SOLID STATE which result in in varyingdegrees of mild to moderate stenosis. Moderate stenosis in the proximalright P2 segment is best visualized on the axial MIP reformattedsequence (series 500 image 15).Normal Za iants:ACom: PatentPcoms: Patent on the left with -type PHYSICIST SOLID STATE origin. Not well visualized on the right.Vertebral arteries: Co-dominant.IMPRESSIONIMPRESSION:Hea d CT with and without contrast:1. Mild generalized parenchymal volume loss.2. Mild chronic microvascular ischemic changes.Intracranial CTA:1. Luminal irregul arity with moderate stenosis in the right P2 PCAsegment and moderate stenosis at the left SCA origin which may be due toatherosclerosis. Consider other nonspeci fic vasculopathy only in theappropriate clinical setting.2. Infundibular dilata tion (1.5 mm) at the origin of the left P1 PCAand left SCA.3. No other major br anch occlusion or stenosis.If the report is "FINALIZED" it indicates that the at tending/staffradiologist has reviewed the images and agrees with the resident'si nterpretation.Dictated By: Colton Pop MD, 2019 10:28 PMI have reviewed the study and agree with the findings in this report.Signed By: Deon Luis MD, 11:19 [facility]2019-09-25 16:27:00 RUN DATE: 12/26/18 [place] - Lab PAGE 1 RUN TIME: 1628 Specimen Inqui ry RUN USER: INTERFACE PATIENT: LAM METZ ACCT #: V [id number] LOC: G U #: [id number] AGE/SX: 58/M ROOM: RE12/25/18REG DR: Seymour Story MD : 56 BED: DIS: STATUS: DEP [facility] TLOC: SPEC #: [id number] RECD: 12/25/18 STATUS: CR REQ #: [id number] JORGE: 12/25/[address] [facility] [address]: Seymour Story MD ENTERED: 12/25/18 SP TYPE: COLONBX OTHR DR: ORDERED: GROSS PROCEDURES: GROSS (12/26/18242) TISSUES: CECUM, NOS - POLYP COLD BX x1 CLINICAL HISTORY COLLECTION DATE: 12/25/2018 BLOOD IN STOOL POST-OP DIAGNOSIS: COLON POLYP; DIVERTIC ULOSIS; INTERNAL HEMORRHOIDS FINAL DIAGNOSIS Cecal polyp, cold biopsy : COLONIC MUCOSA WITH AREA OF ADENOMATOUS CHANGE COMPATIBLE WITH TUBULAR ADENOMA NEGATIVE FOR HIGH GRADE DYSPLASIA AND MALIGNANCY RRB/gonzalez D 62198 MACROSCOPIC The specimen is received in formalin, labeled with the patient's name, identified as "biopsy sigmoid polyp ", and consists of lee biopsy material measuring 0.3 cm, submitted for histolo gic evaluation. GROSS PERFORMED AT [facility] [address] [place] [address] (S) MICROSCOPIC All of the stains, including any controls perf ormed, stain appropriately. MICROSCOPIC PERFORMED AT [facility] CONTINUED ON NEXT PAGE RUN DATE: 12/26/18 Solomon munguia PAGE 2 RUN TIME: 1628 S cori Inquiry RUN USER: INTERFACE SPEC #: [id number] PATIENT: LAM METZ #[id number] (Continued) MICROSCOPIC (Continued) [address] [place] [address] (p)[phone] PERFORMING SITE Diagnosis performed at: [facility] [address] [place] [address] Si jamaal SIGNATURE ON FILE Jesus Arriaga MD 12/26/18 1627 END OF REPORT [id number] 08:44:00* Test Item Value Reference Range Interpretation Comments GLUBED (test code = GLUBED) 229 mg/dL 74-106 H Performed by certified ferryboat operator cable at [facility] [id number] 06:57:00* Test Item Value Reference Range Interpretation Comments GLUBED (test code = GLUBED) 273 mg/dL 74-106 H Performed by certified ferryboat operator cable at [facility] BASIC METABOLIC [id number] 17:17:00* Test Item Value Reference Range Interpretation Comments SODIUM (test code = NA) 133 mmol/L 128-145 N POTASSIUM (test code = K) 3.4 mmol/L 3.5-5.1 L CHLORIDE (test code = CL) 94.0 mmol/L 98-107 L CARBON DIOXIDE (test code = CO2) 21.9 mmol/L 22-29 L ANION GAP (test code = GAP) 21 mmol/L 10-20 H GLUCOSE (test code = GLU) 356 mg/dL 70-110 H BLOOD UREA NITROGEN (test code = BUN) 18 mg/dL 7-22 N GLOMERULAR FILTRATION RATE (test code = GFR) > 60 mL/min >=60 Estimated GFR by using Modified MDRD formula.Chronic kidney disease is defined as either kidney damageor GFR <60 mL/min/1.73 m2 for >3 months. CREATININE (test code = CREAT) 1.02 mg/dL 0.55-1.3 N BUN/CREATININE RATIO (test code = BUN/CREA) 17.6 10-20 N CALCIUM (test code = CA) 9.7 mg/dL 8.0-10.5 N
[2020-02-25 20:24] LABS: BASOPHILS # (AUTO) 0.1 (0.0-0.1); BASOPHILS % 0.5 % (0.0-1.0); EOSINOPHILS % 0.1 % (0.0-6.0); HEMATOCRIT 39.9 % (38.2-49.6); LYMPHOCYTES % 5.8 % (18.0-39.1); MEAN CORPUSCULAR HEMOGLOBIN 29.7 pg (28-32); MEAN CORPUSCULAR HGB CONC 35.1 g/dL (31-35); MEAN CORPUSCULAR VOLUME 84.5 fL (81-99); MONOCYTES # (AUTO) 1.1 (0.2-0.8); MONOCYTES % 6.2 % (4.4-11.3); NEUTROPHILS % 84.5 % (38.7-80.0); PLATELET COUNT 118 x10e3/uL (140-360); RED BLOOD COUNT 4.72 x10e6/uL (4.3-5.7); RED CELL DISTRIBUTION WIDTH 13.3 % (11.7-14.4)
[2020-02-25 20:42] LABS: ALANINE AMINOTRANSFERASE 46 IU/L (0-55); ALBUMIN 3.3 g/dL (3.5-5.0); ALBUMIN/GLOBULIN RATIO 0.8 (0.8-2.0); ALKALINE PHOSPHATASE 50 IU/L (40-150); ANION GAP 16.1 mmol/L (8-16); BLOOD UREA NITROGEN 18 mg/dL (7-26); BUN/CREATININE RATIO 16 (6-25); CALCIUM 9.2 mg/dL (8.4-10.2); CARBON DIOXIDE 25 mmol/L (22-29); CHLORIDE 95 mmol/L (98-107); CREATINE KINASE 93 IU/L (30-200); CREATININE, SERUM 1.12 mg/dL (0.72-1.25); EST GLOMERULAR FILTRATION RATE > 60 ML/MIN (60-); GLUCOSE 248 mg/dL (74-118); POTASSIUM 3.1 mmol/L (3.5-5.1); SODIUM 133 mmol/L (136-145)
--- NOTE | 2020-02-25 20:55 | Emergency Department Note ---
History of Present Illnes History of Present Illness Chief Complaint: COVID PUI History of Present Illness This is a 59 year old male PRESENTS TO THE ED FOR COUGH AND FEVER SINCE MONDAY. STATES HE HAS SOME BLOOD TINGED SPUTUM WHEN SPITTING UP. DR SERRA IS IN TRIAGE. COVID PRECAUTIONS ARE IN PLACE. PER PATIENT HE STATES HE HAS BEEN HAVING COUGH FOR 2 MONTHS THAT IS CHRONIC IN NATURE. Historian: Patient Arrival Mode: Car Onset (how long ago): day(s) (1) Location: chest Quality: cough, fever Radiation: Reports non-radiation Severity: moderate Onset quality: gradual Duration (how long): day(s) (1) Timing of current episode: constant Progression: unchanged Chronicity: new Context: Denies recent illness, Denies recent surgery Relieving factors: none Exacerbating factors: none Associated symptoms: Reports other (blood tinged sputum occasionally) Past Medical/Family History Physician Review I have reviewed the patient's past medical and family history. Any updates have been documented here. Past Medical History Recent Fever: Yes Clinical Suspicion of Infectio: Yes New/Unexplained Change in Ment: No Past Medical History: Hypertension, Diabetes Past Surgical History: None Social History Smoking Cessation: Never Smoker Counseling Performed: No Alcohol Use: Occasional Any Illegal Drug Use: No Physically hurt or threatened: No Family History Family history of heart diseas: No Other family history htn,dm Review of Systems Review of Systems Constitutional: Reports as per HPI EENTM: Reports no symptoms Cardiovascular: Reports no symptoms Respiratory: Reports as per HPI Gastrointestinal: Reports no symptoms Genitourinary: Reports no symptoms Musculoskeletal: Reports no symptoms Integumentary: Reports no symptoms Neurological: Reports no symptoms Psychological: Reports no symptoms Endocrine: Reports no symptoms Hematological/Lymphatic: Reports no symptoms Physical Exam Related Data Allergies: Coded Allergies: No Known Allergies (Unverified , 02/25/20) Triage Vital Signs Vital Signs Date Time Temp Pulse Resp B/P (MAP) Pulse Ox O2 Delivery O2 Flow Rate FiO2 02/25/20 20:04 101.7 126 22 141/80 97 Vital signs reviewed: Yes Physical Exam CONSTITUTIONAL Constitutional: Present well-developed, Present well-nourished; Absent distressed HENT HENT: Present normocephalic, Present atraumatic, Present oropharynx clear/moist, Present nose normal HENT L/R: Present left ext ear normal, Present right ext ear normal EYES Eyes: Reports PERRL, Reports conjunctivae normal NECK Neck: Present ROM normal PULMONARY Pulmonary: Present effort normal, Present rhonchi (RUL) CARDIOVASCULAR Cardiovascular: Present regular rhythm, Present heart sounds normal, Present capillary refill normal, Present tachycardia (120) GASTROINTESTINAL Abdominal: Present soft, Present nontender, Present bowel sounds normal GENITOURINARY Genitourinary: Present exam deferred SKIN Skin: Present warm, Present dry MUSCULOSKELETAL Musculoskeletal: Present ROM normal NEUROLOGICAL Neurological: Present alert, Present oriented x 3, Present no gross motor or sensory deficits PSYCHOLOGICAL Psychological: Present mood/affect normal, Present judgement normal Results Laboratory Result Diagram: 02/25/202011 Laboratory Laboratory Tests Test 02/25/20 21:34 02/25/20 20:15 02/25/20 20:12 Coronavirus (PCR) Not detected (NOTDETECTED) Influenza Virus Types A,B Antigen Negative (NEGATIVE) White Blood Count 17.75 x10e3/uL (4.8-10.8) Red Blood Count 4.72 x10e6/uL (4.3-5.7) Hemoglobin 14.0 g/dL (14.0-18.0) Hematocrit 39.9 % (38.2-49.6) Mean Corpuscular Volume 84.5 fL (81-99) Mean Corpuscular Hemoglobin 29.7 pg (28-32) Mean Corpuscular Hemoglobin Concent 35.1 g/dL (31-35) Red Cell Distribution Width 13.3 % (11.7-14.4) Platelet Count 118 x10e3/uL (140-360) Neutrophils (%) (Auto) 84.5 % (38.7-80.0) Lymphocytes (%) (Auto) 5.8 % (18.0-39.1) Monocytes (%) (Auto) 6.2 % (4.4-11.3) Eosinophils (%) (Auto) 0.1 % (0.0-6.0) Basophils (%) (Auto) 0.5 % (0.0-1.0) Neutrophils # (Auto) 15.0 (2.1-6.9) Lymphocytes # (Auto) 1.0 (1.0-3.2) Monocytes # (Auto) 1.1 (0.2-0.8) Eosinophils # (Auto) 0.0 (0.0-0.4) Basophils # (Auto) 0.1 (0.0-0.1) Absolute Immature Granulocyte (auto 0.52 x10e3/uL (0-0.1) Sodium Level 133 mmol/L (136-145) Potassium Level 3.1 mmol/L (3.5-5.1) Chloride Level 95 mmol/L (98-107) Carbon Dioxide Level 25 mmol/L (22-29) Anion Gap 16.1 mmol/L (8-16) Blood Urea Nitrogen 18 mg/dL (7-26) Creatinine 1.12 mg/dL (0.72-1.25) Estimat Glomerular Filtration Rate > 60 ML/MIN (60-) BUN/Creatinine Ratio 16 (6-25) Glucose Level 248 mg/dL (74-118) Lactic Acid Level 1.7 mmol/L (0.5-2.0) Calcium Level 9.2 mg/dL (8.4-10.2) Total Bilirubin 2.1 mg/dL (0.2-1.2) Aspartate Amino Transf (AST/SGOT) 21 IU/L (5-34) Alanine Aminotransferase (ALT/SGPT) 46 IU/L (0-55) Alkaline Phosphatase 50 IU/L (40-150) Creatine Kinase 93 IU/L (30-200) Creatine Kinase MB 1.30 ng/mL (0-5.0) Troponin I 0.003 ng/mL (0-0.300) Total Protein 7.4 g/dL (6.5-8.1) Albumin 3.3 g/dL (3.5-5.0) Globulin 4.1 g/dL (2.3-3.5) Albumin/Globulin Ratio 0.8 (0.8-2.0) Laboratory Tests Test 02/25/20 20:15 02/25/20 20:12 Influenza Virus Types A,B Antigen Negative (NEGATIVE) White Blood Count 17.75 x10e3/uL (4.8-10.8) Red Blood Count 4.72 x10e6/uL (4.3-5.7) Hemoglobin 14.0 g/dL (14.0-18.0) Hematocrit 39.9 % (38.2-49.6) Mean Corpuscular Volume 84.5 fL (81-99) Mean Corpuscular Hemoglobin 29.7 pg (28-32) Mean Corpuscular Hemoglobin Concent 35.1 g/dL (31-35) Red Cell Distribution Width 13.3 % (11.7-14.4) Platelet Count 118 x10e3/uL (140-360) Neutrophils (%) (Auto) 84.5 % (38.7-80.0) Lymphocytes (%) (Auto) 5.8 % (18.0-39.1) Monocytes (%) (Auto) 6.2 % (4.4-11.3) Eosinophils (%) (Auto) 0.1 % (0.0-6.0) Basophils (%) (Auto) 0.5 % (0.0-1.0) Neutrophils # (Auto) 15.0 (2.1-6.9) Lymphocytes # (Auto) 1.0 (1.0-3.2) Monocytes # (Auto) 1.1 (0.2-0.8) Eosinophils # (Auto) 0.0 (0.0-0.4) Basophils # (Auto) 0.1 (0.0-0.1) Absolute Immature Granulocyte (auto 0.52 x10e3/uL (0-0.1) Lactic Acid Level 1.7 mmol/L (0.5-2.0) Lab results reviewed: Yes Imaging Imaging results reviewed: Yes Impressions Procedure: [id number] CT/CT CHEST WO Exam Date: 02/25/20 Exam Time: 2200 REPORT STATUS: Signed EXAM: CT Chest WITHOUT contrast INDICATION: ^Y ^COVID PUI ^20200225 ^2200 COMPARISON: Same day chest x-ray TECHNIQUE: Chest was scanned utilizing a multidetector helical scanner from the lung apex through the level of the adrenal glands without administration of IV contrast. Absence of intravenous contrast decreases sensitivity for detection of lymphadenopathy and vascular pathology. Coronal and sagittal reformations were obtained. Routine protocol was performed. IV CONTRAST: None COMPLICATIONS: None RADIATION DOSE: Total DLP: 484.35 mGy*cm Estimated effective dose: (DLP x 0.014 x size factor) mSv CTDIvol has been reviewed. It is below the limits set by the Radiation Protocol Committee (RPC). FINDINGS: LINES/ TUBES: None. LUNGS AND AIRWAYS: Right upper lobe consolidation with air bronchograms. Airways are normal. PLEURA: The pleural spaces are clear. HEART AND MEDIASTINUM: The thyroid gland is normal. No mediastinal, hilar or axillary lymphadenopathy. The heart is normal in size.. There is no pericardial effusion. Atherosclerotic calcification of coronary arteries. UPPER ABDOMEN: Hepatic steatosis. Partially seen splenomegaly. BONES: Age indeterminate nondisplaced fracture of the anterior right seventh rib. SOFT TISSUES: Unremarkable. IMPRESSION: Right upper lobe pneumonia. Signed by: Dr. Macario Sarah MD on 02/25/2020 10:25 PM Dictated By: MACARIO SARAH MD 24 Transcribed By: NEVAEH on 02/25/202224 COPY TO: HORTENSIA SERRA MD~ Patient Name: LAM METZ MR #: [id number] : 1960 Age/Sex: 59/M Req #: [id number] Adm Physician: Ordered by: HORTENSIA SERRA MD Report #: [id number] Location: ER Room/Bed: Procedure: [id number] DX/CHEST SINGLE (PORTABLE) Exam Date: 02/25/20 Exam Time: 2046 REPORT STATUS: Signed EXAMINATION: CHEST SINGLE (PORTABLE) INDICATION: ^Y ^fever, cough ^20200225 ^2046 ^Y COMPARISON: None FINDINGS: AP view TUBES and LINES: None. LUNGS: Limited by body habitus and low lung volumes. Right upper lobe and left basilar hazy opacification. PLEURA: No pneumothorax. Suspected trace right and small left pleural effusions. HEART AND MEDIASTINUM: The cardiomediastinal silhouette is enlarged. BONES AND SOFT TISSUES: No acute osseous lesion. Soft tissues are unremarkable. UPPER ABDOMEN: No free air under the diaphragm. IMPRESSION: Right upper lobe and left basilar hazy opacifications, concerning for multifocal pneumonia. Signed by: Dr. Macario Sarah MD on 02/25/2020 9:13 PM Dictated By: MACARIO SARAH MD 12 Transcribed By: NEVAEH on 02/25/202112 COPY TO: HORTENSIA SERRA MD~ Procedures 12 Lead ECG Interpretation ECG Interpretation : ECG: ECG 1 Mill [employer] Head: Interpreted by ED physician Date: Feb 25, 2020 Time: 20:18 Rhythm: sinus tachycardia Rate: tachycardia BPM: 128 QRS axis: normal Conduction: incomplete RBBB ST segments normal: Yes T waves normal: Yes Other findings: no other findings Clinical Impression: abnormal ECG Assessment & Plan Medical Decision Making MDM pt with fever, cough and sirs criteria on presentation cbc,cmp,cardiac enzymes, ekg, cxr, rapid flu, cxr, blood culture, lactic acid ordered to eval for pneumonia, influenza, leukocytosis, electrolyte abnormality, sepsis rocephin 1 gram iv ordered tylenol 975 mg po ordered I SPOKE WITH DR FRITZ, ADMIT INPATIENT Assessment & Plan Final Impression: (1) Fever (2) Pneumonia Depart Disposition: ADMITTED Last Vital Signs Date Time Temp Pulse Resp B/P (MAP) Pulse Ox O2 Delivery O2 Flow Rate FiO2 02/25/20 20:04 101.7 126 22 141/80 97 Medications in the ED Acetaminophen 975 mg ONCE ONCE PO Last administered on 02/25/20at 20:23; Admin Dose 975 MG; Start 02/25/20 at 20:15; Stop 02/25/20 at 20:16; Status DC Ceftriaxone Sodium 50 ml @ 100 mls/hr ONCE ONCE IV Last administered on 02/25/20at 20:23; Admin Dose 100 MLS/HR; Start 02/25/20 at 20:15; Stop 02/25/20 at 20:44; Status DC HORTENSIA SERRA MD Feb 25, 2020 20:55
--- NOTE | 2020-02-25 21:17 | Diagnostic Imaging Report ---
EXAMINATION: CHEST SINGLE (PORTABLE) INDICATION: ^Y ^fever, cough ^20200225 ^2046 ^Y COMPARISON: None FINDINGS: AP view TUBES and LINES: None. LUNGS: Limited by body habitus and low lung volumes. Right upper lobe and left basilar hazy opacification. PLEURA: No pneumothorax. Suspected trace right and small left pleural effusions. HEART AND MEDIASTINUM: The cardiomediastinal silhouette is enlarged. BONES AND SOFT TISSUES: No acute osseous lesion. Soft tissues are unremarkable. UPPER ABDOMEN: No free air under the diaphragm. IMPRESSION: Right upper lobe and left basilar hazy opacifications, concerning for multifocal pneumonia. Signed by: Dr. Macario Ceballos MD on 02/25/2020 9:13 PM
--- NOTE | 2020-02-25 22:29 | Diagnostic Imaging Report ---
EXAM: CT Chest WITHOUT contrast INDICATION: ^Y ^COVID PUI ^20200225 ^220 COMPARISON: Same day chest x-ray TECHNIQUE: Chest was scanned utilizing a multidetector helical scanner from the lung apex through the level of the adrenal glands without administration of IV contrast. Absence of intravenous contrast decreases sensitivity for detection of lymphadenopathy and vascular pathology. Coronal and sagittal reformations were obtained. Routine protocol was performed. IV CONTRAST: None COMPLICATIONS: None RADIATION DOSE: Total DLP: 484.35 mGy*cm Estimated effective dose: (DLP x 0.014 x size factor) mSv CTDIvol has been reviewed. It is below the limits set by the Radiation Protocol Committee (RPC). FINDINGS: LINES/ TUBES: None. LUNGS AND AIRWAYS: Right upper lobe consolidation with air bronchograms. Airways are normal. PLEURA: The pleural spaces are clear. HEART AND MEDIASTINUM: The thyroid gland is normal. No mediastinal, hilar or axillary lymphadenopathy. The heart is normal in size.. There is no pericardial effusion. Atherosclerotic calcification of coronary arteries. UPPER ABDOMEN: Hepatic steatosis. Partially seen splenomegaly. BONES: Age indeterminate nondisplaced fracture of the anterior right seventh rib. SOFT TISSUES: Unremarkable. IMPRESSION: Right upper lobe pneumonia. Signed by: Dr. Macario Ceballos MD on 02/25/2020 10:25 PM
[2020-02-25] MEDS ORDERED: DEXTROSE 50% SYRINGE 50 ML IV PRN (23:30)
[2020-02-25] MEDS ORDERED: ACETAMINOPHEN 325 MG TAB PO PRN (23:30)
[2020-02-25] MEDS ORDERED: CEFTRIAXONE SOD 1 GRAM/0.9% SOD CHL 50ML BAG IV SCH (23:30)
--- OUTSIDE RECORDS SUMMARY | 2020-02-25 23:36 | XMS REPORT | Clinical Summary ---
Author Author [facility] Organization [facility] Address Unknown Phone Unavailable Care Team Providers Care Beater And Pulper Feeder Name Role Phone Jacqueline Parker PCP Allergies [...] 0 Essential hypertension, mouth daily. benign Active Idqgr-2-RBB-EPA-Fish Oil Take by 30 capsule 1 1 [...] Needs flu shot; Hypokalemia; Hypertriglyceridemia 01/30/2020 Telephonic [facility] Practice Encounter Jacqueline Parker DO 01/30/2020 Orders Only [facility] Yury Del Rosario MD Elevated PSA (Primary Dx); Lower urinary tract symptoms (LUTS) 01/17/2020 Telephonic Urology Encounter Jacqueline Parker DO Medications 01/08/2020 Refill [facility] Jacqueline Parker DO Type 2 diabetes mellitus with complicati on, without long-term current use of insulin (Primary Dx); Essential hypertension, benign; Elevated PSA; Preventative health care; Lower urinary tract symptoms (LUTS) 12/02/2019 Telephonic [facility] Encounter Jacqueline Parker DO Medications 11/25/2019 Refill [facility] Jacqueline Parker DO Medications 10/18/2019 Refill [facility] Kira Alcala MD Medications 10/18/2019 [facility] 07/30/2019 Clinical Pharmacy Jacqueline Parker DO Medications 07/30/2019 Refill [facility] Rachel Juares, PT Chronic left shoulder pain; Decreased range of motion of left shoulder; Impaired tolerance of activity 06/05/2019 Therapy Physical Therapy Jacqueline Parker DO Medications 06/02/2019 Refill [facility] Rachel Juares, STEPHANIE Chronic left shoulder pain; [...] Recorded COVID-19 Exposure Response 02/14/2020 2:16 PM SPOT MAN In the last month, have you been in contact with No / Unsure someone who was confirmed or suspected to have Coronavirus / COVID-19? Last Filed Vital Signs Reading Time Taken Comments Vital Sign 133/74 06/06/2019 8:59 AM SPOT MAN Blood Pressure 108 06/06/2019 8:59 AM SPOT MAN Pulse 37 C (98.6 F) 04/05/2019 8:47 AM SPOT MAN Temperature 18 04/05/2019 8:47 AM SPOT MAN Respiratory Rate - - Oxygen Saturation - - Inhaled Oxygen Concentration 112 kg (247 lb) 04/05/2019 8:47 AM SPOT MAN Weight 177.8 cm (5' 10") 04/05/2019 8:47 AM SPOT MAN Height 35.44 04/05/2019 8:47 AM SPOT MAN Body Mass Index Plan of Treatment Care Team Description Date Type Specialty Jacqueline Parker DO [address] [place] [address] [phone] 03/12/2020 Telephonic Family Practice Encounter 03/25/2020 Telephonic [...] 02/14/2020 Elevated LFTs TRANSFERASE (GGT) 2:58 PM SPOT MAN HEPATITIS PANEL Routine 02/14/2020 Elevated LFTs 2:58 PM SPOT MAN BASIC METABOLIC PANEL Routine 02/14/2020 Hypokale rupal 2:58 PM SPOT MAN LIVER PROFILE Routine 02/14/2020 Elevated LFTs 2:58 PM SPOT MAN TOTAL PROTEIN/CREATININE Routine 02/14/2020 Prote inuria, unspecified RATIO, URINE 2:58 PM SPOT MAN type OPHTHALMOLOGY RETINAL Routine 02/14/2020 Type 2 d iabetes mellitus SCAN 2:49 AM SPOT MAN with complication, without long-term current use of [...] Routine 05/01/2019 Abdominal hyperesthesia- CONTRAST 7:58 AM SPOT MAN abd wall hyperparat hesia- EMG showed FINDINGS OF CHRONIC RE-INNERVATION POTENTIALS ON NEEDLE EMG AT THE LEVEL OF THE LEFT T12 PARASPINALS. CTA HEAD W CONTRAST Routine 2019 Abdominal hyperesthesia- 4:32 PM SPOT MAN abd wall hyperparathesia- EMG showed FINDINGS OF CHRONIC RE-INNERVATION POTENTIALS ON NEEDLE EMG AT THE LEVEL OF THE LEFT T12 PARASPINALS. DEVON Routine 04/05/2019 Abdominal hyper esthesia- 11:43 AM SPOT MAN abd wall hyperparathesia- EMG showed FINDINGS OF CHRONIC RE-INNERVATION POTENTIALS ON NEEDLE EMG AT THE LEVEL OF THE LEFT T12 PARASPINALS. HTLV-I/II AB QL Routine 04/05/2019 Abdominal hype resthesia- 11:43 AM SPOT MAN abd wall hyperparathesia- EMG showed FINDINGS OF CHRONIC RE-INNERVATION POTENTIALS ON NEEDLE EMG AT THE LEVEL OF THE LEFT T12 PARASPINALS. VITAMIN B6 Routine 04/05/2019 Abdominal hyper esthesia- 11:43 AM SPOT MAN abd wall hyperparathesia- EMG showed FINDINGS OF CHRONIC RE-INNERVATION POTENTIALS ON NEEDLE EMG AT THE LEVEL OF THE LEFT T12 PARASPINALS. SJOGREN'S AB Routine 04/05/2019 Abdominal hyper esthesia- 11:43 AM SPOT MAN abd wall hyperparathesia- EMG showed FINDINGS OF CHRONIC RE-INNERVATION POTENTIALS ON NEEDLE EMG AT THE LEVEL OF THE LEFT T12 PARASPINALS. COPPER, SERUM Routine 04/05/2019 Abdominal hyper esthesia- 11:43 AM SPOT MAN abd wall hyperparathesia- EMG showed FINDINGS OF CHRONIC RE-INNERVATION POTENTIALS ON NEEDLE EMG AT THE LEVEL OF THE LEFT T12 PARASPINALS. HEAVY METALS BLD Routine 04/05/2019 Abdominal hyp eresthesia- 11:43 AM SPOT MAN abd wall hyperparathesia- EMG showed FINDINGS OF CHRONIC RE-INNERVATION POTENTIALS ON NEEDLE EMG AT THE LEVEL OF THE LEFT T12 PARASPINALS. SYPHILIS SCREEN FOR Routine 04/05/2019 Abdominal hyperesthesia- INFECTION 11:43 AM SPOT MAN abd wall hyperparat hesia- EMG showed FINDINGS OF CHRONIC RE-INNERVATION POTENTIALS ON NEEDLE EMG AT THE LEVEL OF THE LEFT T12 PARASPINALS. HIV AG/AB COMBO ROUTINE Routine 04/05/2019 Abdomi nal hyperesthesia- SCREENING 11:43 AM SPOT MAN abd wall hyperparat hesia- EMG showed FINDINGS OF CHRONIC RE-INNERVATION POTENTIALS ON NEEDLE EMG AT THE LEVEL OF THE LEFT T12 PARASPINALS. RA FACTOR Routine 04/05/2019 Abdominal hyper esthesia- 11:43 AM SPOT MAN abd wall hyperparathesia- EMG showed FINDINGS OF CHRONIC RE-INNERVATION POTENTIALS ON NEEDLE EMG AT THE LEVEL OF THE LEFT T12 PARASPINALS. ANGIOTENSIN CONVERTING Routine 04/05/2019 Abdomin al hyperesthesia- ENZYME 11:43 AM SPOT MAN abd wall hyperparat hesia- EMG showed FINDINGS OF CHRONIC RE-INNERVATION POTENTIALS ON NEEDLE EMG AT THE LEVEL OF THE LEFT T12 PARASPINALS. BASIC METABOLIC PANEL Routine 04/05/2019 Abdomina l hyperesthesia- 11:43 AM SPOT MAN abd wall hyperparathesia- EMG showed FINDINGS OF CHRONIC RE-INNERVATION POTENTIALS ON NEEDLE EMG AT THE LEVEL OF THE LEFT T12 PARASPINALS. after 02/24/2019 Results * T Prot/Crea Ratio,Ur (02/14/2020 2:58 PM SPOT MAN) Creatinine, 70 20 - 370 mg/dL [facility] Total Protein, 0.08 <0.19 g/L [facility] Total 0.1 0 - 0.5 % % [facility] Protein/Creatin LAB[facility] ine Ratio, Urine Specimen Urine - Voided, urine Performing Organization Address [facility] one Number [facility] [address] [place] [id number] [phone] * Liver Profile (02/14/2020 2:58 PM SPOT MAN) Total Protein 7.1 6.0 - 8.3 g/dL [...] [facility] Specimen Blood Performing Organization Address [facility] one Number [facility] [address] [place], [place] [phone] * Hepatitis Panel (02/14/2020 2:58 PM SPOT MAN) Pathologist [facility] Hepatitis C Negative Negative [facility] Virus (HCV) [facility] Antibody Hep B Surface Negative Negative [facility] Ag [facility] Hep A Vir Ab Negative Negative [facility] IgM [facility] Hep B Core Ab Negative Negative [facility] IgM [facility] Specimen Blood Performing Organization Address [facility] one Number [facility] [address] [place] [address] * GGT [Gamma-Glutamyl Transferase] (02/14/2020 2:58 PM SPOT MAN) Pathologist [facility] GGT 102 (H) 9 - 64 U/L [facility] Specimen Blood Performing Organization Address [facility] one Number [facility] [address] [place], [place] [phone] * Basic Metabolic Panel (02/14/2020 2:58 PM SPOT MAN) Only the most recent of 2 results within the time period is included. Pathologist [facility] Sodium 133 (L) 136 - 145 mmol/L [...] [facility] Specimen Blood Performing Organization Address [facility] one Number [facility] [address] [place], [place] [phone] * OPHTHALMOLOGY RETINAL SCAN (02/14/2020 2:49 AM SPOT MAN) [facility] RETINAL NORMAL IRIS SCAN-FINAL RESULT Right Diabetic [...] y/o, Abad (: [birth year]57, ) presented to [facility] on 02-14-2020 for a retinal imaging study [...] electronically signed Ramin Colindres MD, , Taxonomy: [id number] on 02/14/2020 10:3 0 PM. NOTE: Any [...] [facility] Specimen Blood Performing Organization Address [facility] Ph one Number [facility] [address] [place], [place] [phone] * Urinalysis (01/15/2020 12:41 PM CDT) Color Yellow Colorless, Straw, [facility] Yellow [facility] Clarity Clear Clear [facility] Spec [place], 1.026 1.001 - 1.035 [facility] Ur [...] Ur LABORATORY Specimen Urine Performing Organization Address [facility] one Number [facility] [address] [place] [address] [phone] * Microalbumin / Creatinine Urine Ratio (01/15/2020 12:41 PM CDT) Pathologist [facility] Microalbumin, 15.2 <30.0 mg/dL [facility] Random [facility] Creatinine, 398 (H) 20 - 370 mg/dL [facility] Urine 38.2 (H) 0.0 - 30.0 mg/g [facility] Microalbumin [facility] Specimen Urine - Voided, urine Performing Organization Address [facility] one Number [facility] [address] [place] [address] * Hemoglobin A1C (01/15/2020 12:41 PM CDT) [facility] Hemoglobin A1c 8.9 (H) 4.3 - 6.1 % [facility] Estimated 209 (H) 70 - 110 mg/dL [facility] Average Glucose LAB[facility] Specimen Blood Performing Organization Address [facility] one Number [facility] [address] [place] [address] [phone] * Comprehensive Metabolic Panel (01/15/2020 12:41 PM CDT) [facility] Sodium 140 136 - 145 mmol/L [facility] [...] [facility] Specimen Blood Performing Organization Address [facility] one Number [facility] [address] [place] [address] [phone] * TSH [Thyroid Stimulating Hormone] (01/15/2020 12:41 PM CDT) TSH 3.96 0.45 - 5.33 uIU/mL [facility] Specimen Blood Performing Organization Address [facility] one Number [facility] [address] [place] [address] * PSA (01/15/2020 12:41 PM CDT) PSA 5.720 (H) <=4.000 ng/mL [facility] Specimen Blood Performing Organization Address [facility] one Number [facility] [address] [place] [address] * Vitamin B12 (01/15/2020 12:41 PM CDT) Vitamin B12 435 See comment pg/mL [facility] Comment: [facility] Normal: 180-914 pg/mL Intermittent: 145-180 pg/mL Deficient: <=145.0 pg/mL Specimen Blood Performing Organization Address [facility] one Number [facility] [address] [place] [address] * Lipid Profile (01/15/2020 12:41 PM CDT) Cholesterol 175.0 <=200.0 mg/dL [facility] Triglyceride 388 (H) <150 mg/dL [facility] HDL 37.0 See Reference Range [facility] Narrative. mg/dL LAB[facility] LDL 60 <100 mg/dL [facility] Comment: [facility] Optimal: < 100.0 mg/dL Near Optimal: 120-129 mg/dL Borderline: 130-159 mg/dL High: 160-189 mg/dL Very High: >=190 mg/dL Patient Yes [facility] Fasting? LABORATORY Specimen Blood Performing Organization Address [facility] one Number [facility] [address] [place] [address] * MRI BRAIN W AND W/O CONTRAST (05/01/2019 7:58 AM SPOT MAN) Specimen Impressions Performed At IMPRESSION: SMS 1. [...] Interface, Rad/Mammog In - 05/01/2019 1:58 PM SPOT MAN MRI BRAIN W AND W/O CONTRAST HISTORY: [...] CTA HEAD W CONTRAST (2019 4:32 PM SPOT MAN) Specimen Impressions Performed At IMPRESSION: [facility] Head CT with and without contrast: 1. Mild generalized parenchymal volum e loss. 2. Mild chronic microvascular ischemi c changes. Intracranial CTA: 1. Luminal irregularity with moderate stenosis in the right P2 OVEREDGER segment and moderate stenosis at the le ft SCA origin which may be due to atherosclerosis. Consider other nonspec [facility]own urgent care vasculopathy only in the appropriate clinical setting. 2. Infundibular dilatation (1.5 mm) a t the origin of the left P1 OVEREDGER and left SCA. 3. No other major [...] the origi ns of the left P1 OVEREDGER and left superior cerebellar artery (SCA) origin [...] irregularity present within the right P 2 OVEREDGER which result in in varying degrees of mild to moderate stenosis. M oderate stenosis in the proximal right P2 segment is best visualized on the axial MIP reformatted sequence (series 500 image 15). Normal Variants: ACom: Patent Pcoms: Patent on the left with -ty pe OVEREDGER origin. Not well visualized on the right. Vertebral arteries: Co-dominant. Procedure Note Interface, Rad/Mammog In - 2019 11:24 PM SPOT MAN Exams: Intracranial CT angiogram History: Ataxia, stroke [...] of the origins of the left P1 OVEREDGER and left superior cerebellar artery (SCA) origin as well as moderate focal stenosis at the left SCA origin which is by visualized on the coronal MIP reformat (series 501, image 10). Posterior cerebral arteries: Patent, no proximal branch occlusion. The left P1 segment is hypoplastic and there is a prominent left posterior communicating artery (-time left OVEREDGER origin). Multifocal luminal irregularity present within the right P2 OVEREDGER which result in in varying degrees of mild to moderate stenosis. Moderate stenosis in the proximal right P2 segment is best visualized on the axial MIP reformatted sequence (series 500 image 15). Normal Variants: ACom: Patent Pcoms: Patent on the left with -type OVEREDGER origin. Not well visualized on the right. Vertebral arteries: Co-dominant. IMPRESSION IMPRESSION: Head CT with and without contrast: 1. Mild generalized parenchymal volume loss. 2. Mild chronic microvascular ischemic changes. Intracranial CTA: 1. Luminal irregularity with moderate s tenosis in the right P2 OVEREDGER segment and moderate stenosis at the left SCA origin which may be due to atherosclerosis. Consider other nonspecific vasculopathy only in the appropriate clinical setting. 2. Infundibular dilatation (1.5 mm) at the origin of the left P1 OVEREDGER and left SCA. 3. No other major [...] MD, 2019 11:19 PM Performing Organization Address [facility] one Number SMS * Syphilis Screen for Infection (04/05/2019 11:43 AM SPOT MAN) TPA Negative Negative, Equivocal [facility] Final Report Negative Negative [facility] Specimen Blood Performing Organization Address [facility] one Number [facility] [address], [place] [phone] * HIV-1/HIV-2 ROUTINE SCREENING (04/05/2019 11:43 AM SPOT MAN) Pathologist [facility] HIV Ag/Ab Combo Negative Negative [facility] Specimen Blood Performing Organization Address [facility] one Number [facility] [address] [place] [address] [phone] * Copper, Serum (04/05/2019 11:43 AM SPOT MAN) Pathologist [facility] Copper, Serum 76Comment: 72 - 166 ug/dL [facility] Detection Limit = 5 Specimen Blood Narrative Performed At Test(s) 434586-[id number], Serum [facility] was developed and its performance amairani cteristics determined by [facility]. It has not been cleared or approved by the Food and Drug Administration. Performed at: 01 - [facility] [address] [id number] Desk Assistant: Neal Diggs MD, Phone : [phone] Performing Organization Address [facility] one Number [facility] [address] [place] [address] * Sjgren's Antibodies (Anti-SS-A/Anti-SS-B) (04/05/2019 11:43 AM SPOT MAN) Sjogren's <0.2 0.0 - 0.9 AI [facility] Anti-SS-A Sjogren's <0.2 0.0 - 0.9 AI [facility] Anti-SS-B Specimen Blood Narrative Performed At Performed at: - [facility] [address] [place] [id number] Desk Assistant: Tommy Jay MD, Phone: [phone] Performing Organization Address [facility] one Number [facility] [address] [place] [phone] * Vitamin B6 (04/05/2019 11:43 AM SPOT MAN) [facility] Vitamin B6 5.0 (<) 5.3 - 46.7 ug/L [facility] Specimen Blood Narrative Performed At Test(s) 918315-[id number] B6 [facility] was developed and its performance amairani cteristics determined by [facility]. It has not been cleared or approved by the Food and Drug Administration. Performed at: [facility] [id number] Desk Assistant: Neal Diggs MD, Phone : [phone] Performing Organization Address [facility] one Number [facility] [place] [address] * HTLV-I/II Antibodies, Qual. (04/05/2019 11:43 AM SPOT MAN) [facility] HTLV-I/II Negative Negative [facility] Antibodies, Qual Specimen Blood Narrative Performed At Performed at: [facility] [address] [id number] Desk Assistant: Shanna Mendiola PhD, Phone: [phone] Performing Organization Address [facility] one Number [facility] [place] [address] * Heavy Metals Bld (04/05/2019 11:43 AM SPOT MAN) [facility] Lead, Blood None Detected 0 - 4 ug/dL [facility] Comment: Testing performed by Inductively coupled plasma/Mass Spectrometry. Environmental Exposure: WHO Recommendation <20 Occupational Exposure: OSHA Lead Std 40 TANISHA 30 Detection Limit = 1 This test was developed and its performance characteristics determined by [facility]. It has not been cleared or approved by the Food and Drug Administration. Arsenic, Blood 6Comment: 2 - 23 ug/L [facility] Detection Limit = 1 Mercury, Blood None Detected 0.0 - 14.9 ug/L [facility] Comment: Environmental Exposure: <15.0 Occupational Exposure: TANISHA - Inorganic Mercury: 15.0 Detection Limit = 1.0 Specimen Blood Narrative Performed At Test(s) 468439-[id number], Blood; [id number]-Gcvyare, Blood [facility] was developed and its performance amairani cteristics determined by [facility]. It has not been cleared or approved by the Food and Drug Administration. Performed at: - [facility] [id number] Desk Assistant: Neal Diggs MD, Phone : [phone] Performing Organization Address [facility] one Number [facility] [address] [place] [address] * Angiotensin Converting Enzyme (04/05/2019 11:43 AM SPOT MAN) SIM 54 14 - 82 U/L [facility] Specimen Blood Narrative Performed At Performed at: - [facility] [address] [place] [id number] Desk Assistant: Neal Diggs MD, Phone : [phone] Performing Organization Address [facility] Ph one Number [facility] [address] [place] [phone] * RA Factor (04/05/2019 11:43 AM SPOT MAN) RA <10 <14 IU/mL [facility] Specimen Blood Performing Organization Address [facility] one Number [facility] [address] [place] [address] * DEVON (04/05/2019 11:43 AM SPOT MAN) Pathologist [facility] DEVON Screen Negative Negative [facility] Specimen Blood Performing Organization Address [facility] Ph one Number [facility] [address] [place] [address] after 02/24/2019 Insurance Type Payer Benefit Subscriber ID Effective Phone Address Plan / Dates Group [facility] xxxxxxxxx 2019-7 [address] [facility] [id number] [place] [address]
--- OUTSIDE RECORDS SUMMARY | 2020-02-25 23:37 | XMS REPORT | Continuity of Care Document ---
Author Author [facility] t Organization [facility] Address [address] [place] [address] Phone Unavailable Care Team Providers Care Customer Account Manager Name Role Phone Lala Parker DO PCP Maxx SERRA Attphys Unavailable Lala Parker DO Attphys Farzaneh Orosco Attphys Unavailable Miguel Ángel CRISOSTOMO, Gavin Cotton Attphys Rachel Juares PT Attphys Unavailable Lori Alcala MD Attphys Mehdi [facility] Attphys Unavailable Chris SUN, Merary-Eric Attphys TEAM, 1-PT Attphys Unavailable WALI ALANIZ Attphys Unavailable Fina PERALTA Attphys Unavailable Crystal ZHENG Attphys Unavailable Ele KEYES Attphys Unavailable PETRONA LOVE Attphys Unavailable KAIN PENALOZA Attphys Unavailable Payers Payer Name Policy Type Policy Number Effective Date Expiration Date [facility] COMMUN ITY PLAN [id number] [place] [address] xxxxxxxxx 2019 00:00:00 2020 23:59:59 [facility] [employer] COMMUNITY PLANUHC COMM UNITY MEDICAID STAR PLUS [id number] [id number] 2020 00:00 :00 [facility] [id number] SSI RECIPIENT [id number] 2018 00:00:00 [facility] SSI [id number] 2019 00:00:00 2019 00:00:00 Problems Condition Name Condition Details Condition Category Status Onset Date Resolution Date Last Treatment Date Treating Clinician Comments Source Lower urinary tract symptoms (LUTS) Lower urinary tract symptoms (LUTS) Disease Active 2020-01-17 00:00:00 [facility] Elevated PSA Elevated PSA Disease Active 2020-01-17 00:00:00 [facility] Chronic left shoulder pain Chronic left shoulder pain Disease Active 2019-04-02 00:00:00 [facility] Decreased range of motion of left shoulder Decreased r nelson of motion of left shoulder Disease Active 2019-04-02 00:00:00 [facility] Impaired tolerance of activity Impaired tolerance of activity Disea se Active 2019-04-02 00:00:00 [facility] Pyloric spasm Pyloric spasm Disease Active 2018-05-22 00:00:00 [facility] 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 Abdominal hyperesthesia - abd wall hyper parathesia- EMG showed FINDINGS OF CHRONIC RE-INNERVATION POTENTIALS ON NEEDLE EMG AT THE LEVEL OF THE LEFT T12 PARASPINALS. Disease Active 2018-03-16 00:00:00 [facility] Essential hypertension, benign Essential hypertension, benign Disea se Active 2018-03-16 00:00:00 [facility] ealth Type 2 diabetes mellitus with complicati on, without long-term current use of insulin Type 2 diabetes mellitus with complicati on, without long-term current use of insulin Disease Active 2018-03-16 00:00:00 [facility] Dyslipidemia Dyslipidemia Disease Active 2018-03-16 00:00:00 [facility] Epigastric abdominal pain Epigastric abdominal pain Disease Ac tive 2018-01-02 00:00:00 [facility] Atypical chest pain Atypical chest pain Disease Active 2018-01-01 00:00 :00 [facility] Allergies, Adverse Reactions, Alerts Allergy Name Allergy Type Status Severity Reaction(s) Onset Date Inacti ve Date Treating Clinician Comments Source No Known Allergies DA Active U 2017-12-31 00:00:00 [facility] No Known Allergies DA Active U 2017-12-19 00:00:00 [facility] No Known Contrast Allergies DA Active U 2003-09-20 00:00: 00 [facility] No Known Drug Allergies DA Active U 2003-09-20 00:00:00 [facility] No Known Food Allergies DA Active U 2003-09-20 00:00:00 [facility] No Known Other Allergies DA Active U 2003-09-20 00:00:00 [facility] Social History Social Habit Start Date Stop Date Quantity Comments Source Sex Assigned At [facility] Exposure to SARS-CoV-2 (event) Not sure [facility] Alcohol intake 2020-01-30 00:00:00 2020-01-30 00:00:00 Current drinker of alcohol (finding) [facility] History SDOH Food Worry 2019-01-08 00:00:00 2019-01-08 00:00:00 1 [facility] History [facility] Food Scarcity 2019-01-08 00:00:00 2019-01-08 00:00:00 1 [facility] Smoking Status Start Date Stop Date Source Never smoker [facility] Medications Ordered Medication Name Filled Medication Name Start Date Stop Da te Current Medication? Ordering Clinician Indication Dosage Frequency Signature (SIG) Comments Components Source pioglitazone (ACTOS) 15 mg tablet 2020-01-30 00:00:00 Yes Type 2 diabetes mellitus with complication, without long-term current use of insulin 15mg QD Take 1 tablet by mouth daily. [facility] glimepiride (AMARYL) 2 mg tablet 2020-01-30 00:00:00 Yes Type 2 diabetes mellitus with complication, without long-term current use of insulin 2mg QD Take 1 tablet by mouth daily (with breakfast). [facility] amLODIPine (NORVASC) 10 mg tablet 2020-01-30 00:00:00 Yes Essential hypertension, benign 10mg QD Take 1 tablet by mouth daily. [facility] losartan (COZAAR) 50 mg tablet 2020-01-30 00:00:00 Yes Essential hypertension, benign 100mg QD Take 2 tablets by mouth daily. [facility] Sborz-2-HXS-EPA-Fish Oil (FISH OIL) 1,000 mg (120 mg-180 mg) cap 2020-01-30 00:00:00 Yes Hypertriglyceridemia Take by mouth. [facility] tropicamide (MYDRIACYL) 0.5 % ophthalmic solution 2020-01-30 00:00:00 2020-01-30 23:59:00 No Type 2 diabetes lindsey itus with complication, without long-term current use of insulin 1[drp] Instill 1 Drop in each eye once as needed for up to 1 dose (for poor retina scan image). [facility] ciprofloxacin HCl (CIPRO) 500 mg tablet 00:00:00 2020-01-20 23:59:00 No Elevated PSA 500mg Q.5D Start day be fore prostate biopsy. Take 1 tablet by mouth 2 times daily for 3 days [facility] sodium phosphates (FLEET ENEMA) 19-7 gram/118 mL enema 2020-01-17 00:00:00 2020-01-17 23:59:00 No Elevated PSA 1{bottle} Ins ert 1 Bottle rectally once for 1 dose. [facility] glimepiride (AMARYL) 2 mg tablet 2020-01-09 00:00:00 2020-01 00:00:00 No Type 2 diabetes mellitus with complication, without long-term current use of insulin 2mg QD Take 1 tablet by mouth daily (with breakfast). [facility] pioglitazone (ACTOS) 15 mg tablet 2020-01-09 00:00:00 2019 00:00:00 No Type 2 diabetes mellitus with complicati on, without long-term current use of insulin 15mg QD Take 1 tablet by mouth daily. [facility] metFORMIN (GLUCOPHAGE) 1,000 mg tablet 2019-12-02 00:00:00 Yes Type 2 diabetes mellitus with complication, without long-term current use of insulin 1000mg Take 1 tablet by mouth 2 times daily (with meals). [facility] hydroCHLOROthiazide (HYDRODIURIL) 25 mg tablet 2019-12-02 00 :00:00 Yes Essential hypertension, benign 25mg QD Take 1 tablet by mouth george poe [facility] dexlansoprazole (DEXILANT) 30 mg delayed release capsule 2019-11-26 00:00:00 Yes Pyloric spasm 30mg QD Take 1 capsule by mouth laney corderoy. [facility] amLODIPine (NORVASC) 10 mg tablet 2019-11-26 00:00:00 2019 00:00:00 No Essential hypertension, benign 10mg QD Take 1 tablet by mo uth daily. [facility] glimepiride (AMARYL) 2 mg tablet 2019-11-26 00:00:00 2020-01 00:00:00 No Type 2 diabetes mellitus with complication, without long-term current use of insulin 2mg QD Take 1 tablet by mouth daily (with breakfast). [facility] pioglitazone (ACTOS) 15 mg tablet 2019-11-26 00:00:00 2019 00:00:00 No Type 2 diabetes mellitus with complicati on, without long-term current use of insulin 15mg QD Take 1 tablet by mouth daily. [facility] amLODIPine (NORVASC) 10 mg tablet 2019-10-21 00:00:00 2019 00:00:00 No Essential hypertension, benign 10mg QD Take 1 tablet by mo uth daily. [facility] glimepiride (AMARYL) 2 mg tablet 2019-10-21 00:00:00 2019-11 00:00:00 No Type 2 diabetes mellitus with complication, without long-term current use of insulin 2mg QD Take 1 tablet by mouth daily (with breakfast). [facility] pioglitazone (ACTOS) 15 mg tablet 2019-10-21 00:00:00 2019 00:00:00 No Type 2 diabetes mellitus with complicati on, without long-term current use of insulin 15mg QD Take 1 tablet by mouth daily. [facility] pregabalin (LYRICA) 100 mg capsule 2019-10-18 00:00:00 Yes Abdominal hyperesthesia 100mg Q.5D Take 1 capsule by mouth 2 times daily. [facility] amLODIPine (NORVASC) 10 mg tablet 2019-07-30 00:00:00 2019 00:00:00 No Essential hypertension, benign 10mg QD Take 1 tablet by mo uth daily. [facility] glimepiride (AMARYL) 2 mg tablet 2019-07-30 00:00:00 2019-10 00:00:00 No Type 2 diabetes mellitus with complication, without long-term current use of insulin 2mg QD Take 1 tablet by mouth daily (with breakfast). [facility] pioglitazone (ACTOS) 15 mg tablet 2019-07-30 00:00:00 2019 00:00:00 No Type 2 diabetes mellitus with complicati on, without long-term current use of insulin 15mg QD Take 1 tablet by mouth daily. [facility] dexlansoprazole (DEXILANT) 30 mg delayed release capsule 2019-06-03 00:00:00 2019-11-25 00:00:00 No Pyloric spasm 30mg QD Take 1 capsule by mouth daily. [facility] pregabalin (LYRICA) 100 mg capsule 2019-04-05 00:00:00 00:00:00 No Abdominal hyperesthesia 100mg Q.5D Take 1 capsule by mouth 2 times daily. [facility] pregabalin (LYRICA) 100 mg capsule 2019-04-05 00:00: 00:00:00 No Abdominal hyperesthesia 100mg Q.5D Take 1 capsule by mouth 2 times daily. [facility] hydroCHLOROthiazide (HYDRODIURIL) 25 mg tablet 2 00:00:00 2019-12-02 00:00:00 No Essential hypertension, benign 25mg QD Take 1 tablet by mouth daily. [facility] metFORMIN (GLUCOPHAGE) 1,000 mg tablet 2019-02-02 1 00:00:00 2019-12-02 00:00:00 No Type 2 diabetes lindsey itus with complication, without long-term current use of insulin 1000mg Take 1 tablet by mouth 2 times daily (with meal s). [facility] lidocaine (RECTICARE) 5 % topical cream 2019-01-08 00:00:00 Yes Abdominal hyperesthesia QD Apply to affected area daily. [facility] blood glucose meter (PRECISION XTRA GLUCOMETER) 2019-01-02 0 0:00:00 Yes Type 2 diabetes mellitus with complication, without long-term current use of insulin Use as directed.. [facility] blood glucose (PRECISION XTRA TEST STRIPS) test strips 2019-01-02 00:00:00 Yes Type 2 diabetes mellitus wit h complication, without long-term current use of insulin Use 2 times weekly ( once per day on Mon,) to test blood sugar. [facility] lancets 28 gauge 2019-01-02 00:00:00 Yes Type 2 diabetes mellitus with complication, without long-term current use of insulin Use 2 times weekly as directed. [facility] amLODIPine (NORVASC) 10 mg tablet 2019-01-02 00:00:00 2019 00:00:00 No Essential hypertension, benign 10mg QD Take 1 tablet by mo ut daily. [facility] glimepiride (AMARYL) 2 mg tablet 2019-01-02 00:00:00 2019-07 00:00:00 No Type 2 diabetes mellitus with complication, without long-term current use of insulin 2mg QD Take 1 tablet by mouth daily (with breakfast). [facility] pioglitazone (ACTOS) 15 mg tablet 2019-01-02 00:00:00 2019 00:00:00 No Type 2 diabetes mellitus with complicati on, without long-term current use of insulin 15mg QD Take 1 tablet by mouth daily. [facility] dexlansoprazole (DEXILANT) 30 mg delayed release capsule 2018-10-10 00:00:00 2019-06-02 00:00:00 No Pyloric spasm 30mg QD Take 1 capsule by mouth daily. [facility] losartan (COZAAR) 50 mg tablet 2018-09-12 00:00:00 2020-01-03 00:00:00 No Essential hypertension, benign 100mg QD Take 2 tablets by mouth trupti ly. [facility] pregabalin (LYRICA) 75 mg capsule 2018-08-09 00:00:00 2019 00:00:00 No Abdominal hyperesthesia 75mg Q.5D Take 1 capsule by mouth 2 times daily. [facility] polyethylene glycol (GOLYTELY) 236-22.74-6.74 -5.86 gram ora l solution 2018-08-07 00:00:00 Yes Occult blood positive stool Add lukewarm drinking water to the fill hali (4 liters) and shake. Drink as directed by your doctor.. [facility] cyanocobalamin, vitamin B-12, 1,000 mcg tablet 2018-04-30 00 :00:00 Yes Low serum vitamin B12 1000ug QD Take 1 tablet by mouth daily. [facility] polyethylene glycol (GOLYTELY) 236-22.74-6.74 -5.86 gram ora l solution 2018-03-21 00:00:00 Yes Fecal occult blood test positi ve Add lukewarm drinking water to the fill hali (4 liters) and shake. Drink as directed by your doctor.. [facility] metoprolol succinate (TOPROL XL) 50 mg extended release tabl et 2018-03-16 00:00:00 Yes Essential hypertension, benign 50mg QD Take 1 tablet by mouth daily. [facility] aspirin (ASPIRIN) 81 mg chewable tablet 2018-01-02 00:00:00 Yes Atypical chest pain 81mg QD Chew and swallow 1 tablet by mouth daily. [facility] Immunizations Ordered Immunization Name Filled Immunization Name Date Status Comments Source Influenza, Vaccine<FLUCELVAX>(Multi-Dose) 2020-02-14 00:00 :00 Completed [facility] Vital Signs Vital Name Observation Time Observation Value Comments Source Systolic blood pressure 2019-06-06 08:59:00 133 mm[Hg] [facility] Diastolic blood pressure 2019-06-06 08:59:00 74 mm[Hg] [facility] Heart rate 2019-06-06 08:59:00 108 /min [facility] Body temperature 2019-04-05 08:47:00 37 Rhona [facility] Respiratory rate 2019-04-05 08:47:00 18 /min [facility] Body height 2019-04-05 08:47:00 177.8 cm [facility] Body weight 2019-04-05 08:47:00 112.038 kg [facility] BMI 2019-04-05 08:47:00 35.44 kg/m2 [facility] Procedures Procedure Date / Time Performed Performing Clinician Sour e TOTAL PROTEIN/CREATININE RATIO, URINE 2020-02-14 14:58:00 Lala Parker [facility] LIVER PROFILE 2020-02-14 14:58:00 Lala Parker BASIC METABOLIC PANEL 2020-02-14 14:58:00 Lala Parker [facility] HEPATITIS PANEL 2020-02-14 14:58:00 Lala Parker GAMMA GLUTAMYL TRANSFERASE (GGT) 2020-02-14 14:58:00 Lala Parker [facility] OPHTHALMOLOGY RETINAL SCAN 2020-02-14 02:49:[address] [facility] HEMOGLOBIN A1C 2020-01-15 12:41:00 [facility]PREHENSIVE METABOL[facility] PANEL 2020-01-15 12:41:00 KeithLala bryan [facility] CBC/DIFF 2020-01-15 12:41:00 [facility] LIPID PROFILE 2020-01-15 12:41:00 [facility] THYROID STIMULATING HORMONE (TSH) 2020-01-15 12:41:00 KeithZackary bryan [facility] PROSTATE SPECIFIC ANTIGEN (PSA) 2020-01-15 12:41:00 KeithLala bryan [facility] VITAMIN B12 2020-01-15 12:41:00 KeithLala bryan [facility] MICROALBUMIN / CREATININE URINE RATIO 2020-01-15 12:41:00 KeithLala bryan [facility] CBC 2020-01-15 12:41:00 Lala Parker h URINALYSIS 2020-01-15 12:41:00 KeithLala bryan [facility] URINALYSIS 2020-01-15 12:41:00 KeithLala bryan [facility] h MRI BRAIN W AND W/O CONTRAST 2019-05-01 07:58:22 Nav Bernal [facility] CTA HEAD W CONTRAST 2019 16:32:11 Nav Bernal [facility] BASIC METABOLIC PANEL 2019-04-05 11:43:00 Nav Bernal [facility] ANGIOTENSIN CONVERTING ENZYME 2019-04-05 11:43:00 Nav Bernal [facility] RA FACTOR 2019-04-05 11:43:00 Nav Bernal [facility] HIV AG/AB COMBO ROUTINE SCREENING 2019-04-05 11:43:00 Aniket Bernal [facility] SYPHILIS SCREEN FOR INFECTION 2019-04-05 11:43:00 Nav Bernal [facility] HEAVY METALS BLD 2019-04-05 11:43:00 Nav Bernal [facility] COPPER, SERUM 2019-04-05 11:43:00 Nav Bernal [facility] SJOGREN'S AB 2019-04-05 11:43:00 Nav Bernal [facility] VITAMIN B6 2019-04-05 11:43:00 Nav Bernal [facility] HTLV-I/II AB QL 2019-04-05 11:43:00 Nav Bernal [facility] DEVON 2019-04-05 11:43:00 Nav Bernal [facility] Plan of Care Planned Activity Planned Date Details Comments Source Future Scheduled Test 2021-02-13 00:00:00 DM Retinal Exam (Y early) [code = DM Retinal Exam (Yearly)] [facility] Scheduled Test 2021-01-14 00:00:00 Hemoglobin A1c ashley surement (procedure) [code = 92327372] [facility] Scheduled Test 2019-10-24 00:00:00 DM Foot Exam (Year ly) [code = DM Foot Exam (Yearly)] [facility] Scheduled Test 2019-03-20 00:00:00 Screening for puja gnant neoplasm of colon (procedure) [code = 450239476] [facility] Encounters Start Date/Time End Date/Time Encounter Type Admission Type Attendi [facility] Care Department Encounter ID Source 2020-01-20 08:59:00 2020-01-20 23:59:00 Outpatient MDA MDA [id number] [facility] 2020-01-17 00:00:00 2020-01-17 00:00:[address] [facility] [id number] [facility] 2020-01-16 00:00:00 2020-01-16 00:00:[address] [facility] [id number] [facility] 2019-12-25 00:00:00 2019-12-25 00:00:[address] [facility] [id number] [facility] 2019-12-02 07:29:35 2019-12-02 12:23:[address] [facility] [id number] [facility] 2019-06-19 00:00:00 2019-06-19 00:00:00 Outpatient RACHEL JUARES [facility] [id number] [facility] 2019-06-18 00:00:00 2019-06-18 00:00:[address] [facility] [id number] [facility] 2019-06-10 00:00:00 2019-06-10 00:00:[address] [facility] [id number] [facility] 2019-06-05 10:39:15 2019-06-05 12:16:59 Outpatient RACHEL JUARES [facility] [id number] [facility] 2019-06-04 00:00:00 2019-06-04 00:00:[address] [facility] [id number] [facility] 2019-05-30 06:53:01 2019-05-30 07:55:07 Outpatient RACHEL JUARES [facility] [id number] [facility] 2019-05-10 00:00:00 2019-05-10 00:00:[address] [facility] [id number] [facility] 2019-05-01 06:54:18 2019-05-01 08:00:[address] [facility] [id number] [facility] 2019-04-19 00:00:00 2019-04-19 00:00:[address] [facility] [id number] [facility] 2019 15:02:28 2019 16:32:[address] [facility] [id number] [facility] 2019-04-08 08:36:01 2019-04-08 08:36:[address] [facility] [id number] [facility] 2019-04-05 11:36:11 2019-04-05 12:57:38 Outpatient AL ALCALA [facility] [id number] [facility] 2019-04-05 08:47:16 2019-04-05 10:48:34 Outpatient AL ALCALA [facility] [id number] [facility] 2019-04-05 00:00:00 2019-04-05 00:00:00 Outpatient AL ALCALA [facility] [id number] [facility] 2019-04-02 09:40:24 2019-04-02 11:15:25 Outpatient TEAM, 1-PT [facility] [id number] [facility] 2019-03-05 00:00:00 2019-03-05 00:00:[address] [facility] [id number] [facility] 2019-02-21 11:41:51 2019-02-21 11:54:[address] [facility] [id number] [facility] 2019-02-21 11:34:50 2019-02-21 11:40:[address] [facility] [id number] [facility] 2019-02-21 10:15:00 2019-02-21 10:53:[address] [facility] [id number] [facility] 2019-02-21 00:00:00 2019-02-21 00:00:[address] [facility] [id number] [facility] 2019-02-13 16:10:04 2019-02-13 16:10:[address] [facility] [id number] [facility] 2019-01-08 13:49:54 2019-01-08 15:36:29 Outpatient FRANCK ALANIZ [facility] [id number] [facility] 2019-01-04 10:01:18 2019-01-04 10:01:[address] [facility] [id number] [facility] 2019-01-03 09:54:19 2019-01-03 09:54:[address] [facility] [id number] [facility] 2019-01-03 09:40:11 2019-01-03 09:45:[address] [facility] [id number] [facility] 2019-01-03 00:00:00 2019-01-03 00:00:[address] [facility] [id number] [facility] 2019-01-02 15:30:14 2019-01-02 16:31:[address] [facility] [id number] [facility] 2018-12-27 08:23:04 2018-12-27 08:24:[address] [facility] [id number] [facility] 2018-12-27 00:00:00 2018-12-27 00:00:00 Outpatient MATTHEW PERALTA [facility] [id number] [facility] 2018-12-25 00:00:00 2018-12-25 00:00:[address] [facility] [id number] [facility] 2018-10-29 08:30:44 2018-10-29 08:31:43 Outpatient MATTHEW PERALTA [facility] [id number] [facility] 2018-10-29 00:00:00 2018-10-29 00:00:00 Outpatient MATTHEW PERALTA [facility] [id number] [facility] 2018-10-24 11:02:15 2018-10-24 11:31:57 Outpatient MATTHEW PERALTA [facility] [id number] [facility] 2018-10-23 09:12:16 2018-10-23 09:15:06 Outpatient MATTHEW PERALTA [facility] [id number] [facility] 2018-10-23 07:49:41 2018-10-23 09:00:01 Outpatient MATTHEW PERALTA [facility] [id number] [facility] 2018-10-23 00:00:00 2018-10-23 00:00:00 Outpatient MATTHEW PERALTA [facility] [id number] [facility] 2018-09-19 09:18:47 2018-09-19 11:47:57 Outpatient SARA ZHENG [facility] [id number] [facility] 2018-08-16 09:53:26 2018-08-16 09:56:[address] [facility] [id number] [facility] 2018-08-09 16:02:02 2018-08-09 16:23:[address] [facility] [id number] [facility] 2018-08-07 12:11:15 2018-08-07 14:24:34 Outpatient PETRONA LOVE [facility] [id number] [facility] 2018-07-24 00:00:00 2018-07-24 00:00:[address] [facility] [id number] [facility] 2018-07-06 10:38:18 2018-07-06 11:19:[address] [facility] [id number] [facility] 2018-06-26 00:00:00 2018-06-26 23:59:[address] [facility] [id number] [facility] 2018-06-26 09:01:43 2018-06-26 09:03:[address] [facility] [id number] [facility] 2018-06-06 12:00:17 2018-06-06 12:05:[address] [facility] [id number] [facility] 2018-05-22 07:57:40 2018-05-22 08:54:[address] [facility] [id number] [facility] 2018-05-17 07:13:39 2018-05-17 23:59:[address] [facility] [id number] [facility] 2018-05-11 07:31:00 2018-05-11 09:42:37 Outpatient CHAD PENALOZA [facility] [id number] [facility] 2018-04-30 10:48:14 2018-04-30 10:48:[address] [facility] [id number] [facility] 2018-03-20 10:56:10 2018-03-20 10:56:[address] [facility] [id number] [facility] 2018-03-16 12:09:19 2018-03-16 12:09:[address] [facility] [id number] [facility] 2018-03-16 12:02:55 2018-03-16 12:02:[address] [facility] [id number] [facility] 2018-03-16 10:31:57 2018-03-16 10:31:[address] [facility] [id number] [facility] 2018-01-11 00:00:00 2018-01-11 00:00:[address] [facility] [id number] [facility] 2018-01-02 00:31:07 2018-01-02 00:31:[address] [facility] [id number] [facility] 2018-01-01 21:43:43 2018-01-01 21:43:[address] [facility] [id number] [facility] 2018-01-01 19:35:10 2018-01-01 19:35:10 Emergency [facility] [id number] [facility] Results Test Description Test Time Test Comments Results Result Comments Source CT CHEST WO 2020-02-25 22:21:00 [facility] : 1960 Sex: M [place] [address] Patient Name: LAM METZ MR #: [id number] : 1960 Age/Sex: 59/M Req #: [id number] Adm Physician: Ordered by: HORTENSIA SERRA MD Report #: [id number] Location: ER Room/Bed: Procedure: [id number] CT/CT CHEST WO Exam Date: 02/25/20 Exam Time: 2200 REPORT STATUS: Signed EXAM: CT Chest WITHOUT contrast INDICATION: Y COVID PUI 20200225 COMPARISON: Same day chest x-ray TECHNIQUE: Chest was scanned utilizing a multidetector helical scanner from the lung apex through the level of the adrenal glands without administration of IV contrast. Absence of intravenous contrast decreases sensitivity for detection of lymphadenopathy and vascular pathology. Coronal and sagittal reformations were obtained. Routine protocol was performed. IV CONTRAST: None COMPLICATIONS: None RADIATION DOSE: Total DLP: 484.35 mGy*cm Estimated effective dose: (DLP x 0.014 x size factor) mSv CTDIvol has been reviewed. It is below the limits set by the Radiation Protocol Committee (RPC). FINDINGS: LINES/ TUBES: None. LUNGS AND AIRWAYS: Right upper lobe consolidation with air bronchograms. Airways are normal. PLEURA: The pleural spaces are clear. HEART AND MEDIASTINUM: The thyroid gland is normal. No mediastinal, hilar or axillary lymphadenopathy. The heart is normal in size.. There is no pericardial effusion. Atherosclerotic calcification of coronary arteries. UPPER ABDOMEN: Hepatic steatosis. Partially seen splenomegaly. BONES: Age indeterminate nondisplaced fracture of the anterior right seventh rib. SOFT TISSUES: Unremarkable. IMPRESSION: Right upper lobe pneumonia. Signed by: Dr. Macario Sarah MD on 02/25/2020 10:25 PM Dictated By: MACARIO SARAH MD 24 Transcribed By: NEVAEH on 02/25/202224 COPY TO: HORTENSIA SERRA MD CHEST SINGLE (PORTABLE) 2020-02-25 21:12:00 [facility] : 1960 Sex: M [facility] [address] [address] Patient Name: LAM METZ MR #: [id number] : 1960 Age/Sex: 59/M Req #: [id number] [facility] Physician: Ordered by: HORTENSIA SERRA MD Report #: [id number] Location: ER Room/Bed: Procedure: [id number] DX/CHEST SINGLE (PORTABLE) Exam Date: 02/25/20 Exam Time: 2046 REPORT STATUS: Signed EXAMINATION: CHEST SINGLE (PORTABLE) INDICATION: Y fever, cough 20200225 Y COMPARISON: None FINDINGS: AP view TUBES and LINES: None. LUNGS: Limited by body habitus and low lung volumes. Right upper lobe and left basilar hazy opacification. PLEURA: No pneumothorax. Suspected trace right and small left pleural effusions. HEART AND MEDIASTINUM: The cardiomediastinal silhouette is enlarged. BONES AND SOFT TISSUES: No acute osseous lesion. Soft tissues are unremarkable. UPPER ABDOMEN: No free air under the diaphragm. IMPRESSION: Right upper lobe and left basilar hazy opacifications, concerning for multifocal pneumonia. Signed by: Dr. Macario Sarah MD on 02/25/2020 9:13 PM Dictated By: MACARIO SARAH MD 12 Transcribed By: NEVAEH on 02/25/202112 COPY TO: HORTENSIA SERRA MD Hepatitis Panel 2020-02-14 22:39:00 Test Item Hepatitis C Virus (HCV) Antibody (test code = 61093-2) Negative Negative Hep B Surface Ag (test code = 5196-1) Negative Negative Hep A Vir Ab IgM (test code = 46379-8) Negative Negative Hep B Core Ab IgM (test code = 33908-1) Negative Negative Lab Interpretation (test code = 86615-3) Normal [facility] Metabolic [id number] 21:37:00* Test Item Value Reference Range Interpretation Comments Sodium (test code = 2951-2) 133 mmol/L 136-145 L Potassium (test code = 2823-3) 4.1 mmol/L 3.5-5.1 Chloride (test code = 2075-0) 93 mmol/L 98-107 L CO2 (test code = 91842529) 29 mmol/L 21-31 Urea Nitrogen (test code = 64153207) 17.0 mg/dL 7-25 Creatinine (test code = 03766531) 0.9 mg/dL 0.7-1.3 Glucose (test code = 17776826) 399 mg/dL 70-110 H Calcium (test code = 03735674) 10.1 mg/dL 8.6-10.3 GFR, Estimated (test code = 63693852) 86 >=90 mL/min/1.73 m2 L Anion Gap (test code = 48429612) 11 mmol/L 5-16 Lab Interpretation (test code = 64976-9) Abnormal [facility] Rnxoilu8932-30-03 21:37:00* Test Item Value Reference Range Interpretation Comments Bilirubin, Total (test code = 2885-2) 1.3 mg/dL 0.2-1.2 H Alkaline Phosphatase (test code = 55223399) 62 U/L 34-104 AST (test code = 33158813) 38 U/L 13-39 Direct Bilirubin (test code = 1968-7) 0.2 mg/dL 0-0.2 ALT (test code = 93779430) 70 U/L 7-52 H Albumin (test code = 97817-3) 4.5 g/dL 4.2-5.5 Lab Interpretation (test code = 81993-9) [facility] Ratio,[id number] 21:13:00* Test Item Value Reference Range Interpretation Comments Creatinine, Urine (test code = 29349684) 70 mg/dL 20-370 Total Protein, Urine (test code = 32646259) 0.08 g/L <0.19 Total Protein/Creatinine Ratio, Urine (test code = 42799222) 0.1 % 0- 0.5 % Lab Interpretation (test code = 93665-3) Normal [facility] [id number] 23:47:00* Test Item Value Reference Range Interpretation Comments Hemoglobin A1c (test code = 4548-4) 8.9 % 4.3-6.1 H Estimated Average Glucose (test code = 73885567) 209 mg/dL 70-11 0 H Lab Interpretation (test code = 15616-3) [facility]normal [facility] / Creatinine Urine Czfmt1764-03-82 21:51:00* Test Item Value Reference Range Interpretation Comments Microalbumin, Random (test code = 53059544) 15.2 mg/dL <30.0 Creatinine, Urine (test code = 55546529) 398 mg/dL 20-370 H Urine Microalbumin (test code = 88932729) 38.2 mg/g 0-30 H Lab Interpretation (test code = 78270-6) Abnormal [facility] HospitalVitamin [id number] 21:46:00* Test Item Value Reference Range Interpretation Comments Vitamin B12 (test code = 16836776) 435 pg/mL See comment Normal: 180-914 pg/mLIntermittent: 145-180 pg/mLDeficient: <=145.0 pg/mL [facility] HospitalXxxpesKnkxlmuhig0622-31-99 21:44:00* Test Item Value Reference Range Interpretation Comments Color (test code = 44005552) Yellow Colorless, Straw, Yellow Clarity (test code = 48483629) Clear Clear Spec Perry, Ur (test code = 49946818) 1.026 1.001-1.035 pH, Ur (test code = 17913303) 5.0 5.0-8.0 Protein, Ur (test code = 98915845) 2+ Negative mg/dL A Glucose, Ur (test code = 56865631) Negative Negative mg/dL Ketone, Ur (test code = 62331454) trace Negative mg/dL A Bilirubin, Ur (test code = 74928022) Negative Negative mg/dL Nitrite, Ur (test code = 34789278) Negative Negative Leukocyte (test code = 63394196) Negative Negative mg/dL Blood, Ur (test code = 30409734) Negative Negative mg/dL RBC (test code = 67421014) <1 0- 4 /HPF WBC (test code = 26458434) 2 0- 5 /HPF Epithelial Cell (test code = 74062759) 1 <=1 /HPF Mucous (test code = 21497560) Present None seen /HPF A Urobilinogen, Ur (test code = 50396319) 1.0 EU/dL <1.0 A Lab Interpretation (test code = 97815-0) [facility]normal [facility] [Thyroid Stimulating Hormone]2020-01-15 21:34:00* Test Item Value Reference Range Interpretation Comments TSH (test code = 75530857) 3.96 0.45- 5.33 uIU/mL Lab Interpretation (test code = 59964-0) Normal [facility] HospitalSkvkjjHTL4772-04-83 21:31:00* Test Item Value Reference Range Interpretation Comments PSA (test code = 08541452) 5.720 ng/mL <=4.000 H Lab Interpretation (test code = 06399-9) Abnormal [facility] HospitalLipid Nlijrqk1481-93-04 21:27:00* Test Item Value Reference Range Interpretation Comments Cholesterol (test code = 2093-3) 175.0 mg/dL <=200.0 Triglyceride (test code = 32555164) 388 mg/dL <150 H HDL (test code = 2085-9) 37.0 mg/dL See Reference Range Narrative . LDL (test code = 79667-6) 60 mg/dL <100 Op timal: < 100.0 mg/dLNear Optimal: 120-129 mg/dLBorderline: 130-159 mg/dLHigh: 160-189 mg/dLVery High: >=190 mg/dL Patient Fasting? (test code = 89499739) Yes Lab Interpretation (test code = 08825-7) Abnormal [facility] HospitalComprehensive Metabolic Erupo8358-59-67 21:27:00* Test Item Value Reference Range Interpretation Comments Sodium (test code = 2951-2) 140 mmol/L 136-145 Potassium (test code = 2823-3) 3.3 mmol/L 3.5-5.1 L Chloride (test code = 2075-0) 98 mmol/L 98-107 CO2 (test code = 23013088) 29 mmol/L 21-31 Glucose (test code = 07845073) 181 mg/dL 70-110 H Calcium (test code = 03016681) 9.7 mg/dL 8.6-10.3 Urea Nitrogen (test code = 08365366) 14.0 mg/dL 7-25 Creatinine (test code = 07861902) 0.9 mg/dL 0.7-1.3 Alkaline Phosphatase (test code = 97105411) 57 U/L 34-104 ALT (test code = 25089870) 122 U/L 7-52 H AST (test code = 47830482) 85 U/L 13-39 H Total Protein (test code = 2885-2) 7.4 g/dL 6-8.3 H GFR, Estimated (test code = 05251815) 86 >=90 mL/min/1.73 m2 L Albumin (test code = 26464-0) 4.6 g/dL 4.2-5.5 Anion Gap (test code = 29284239) 13 mmol/L 5-16 Lab Interpretation (test code = 92762-4) Abnormal [facility] HospitalCBC/Yzcu5194-39-72 21:01:00* Test Item Value Reference Range Interpretation [...] 34.3 g/dL 32-36 RDW (test code = 28061-2) 43.4 fL 35.1-43.9 Platelet (test code = 777-3) 193 K/uL 150-400 Mean Platelet Volume (test code = 99562-8) 10.7 fL 9.4-12.4 Percent NRBC (test code = 30689672) 0.0 % Neutrophil (test code = 770-8) 63.4 % 34-67.9 Lymphs (test code = 736-9) 22.2 % 21.8-50 Monocytes (test code = 5905-5) 10.5 % 5.3-12 Eos (test code = 713-8) 2.6 % 0.8-5 Basos (test code = 706-2) 0.8 % 0.2-1.2 Immature Granulocytes (test code = 12193952) 0.5 % 0-0.5 Neutrophils (Absolute) (test code = 42782058) 5.50 K/uL 1.78-5.3 6 H Lymphs (Absolute) (test code = 85739619) 1.93 K/uL 1.32-3.57 Monocytes(Absolute) (test code = 49235917) 0.91 K/uL 0.3-0.82 H Eos (Absolute) (test code = 86313745) 0.23 K/uL 0.04-0.54 Baso (Absolute) (test code = 09527846) 0.07 K/uL 0.01-0.08 Immature Grans (Abs) (test code = 99889721) 0.04 K/uL 0-0.03 H Absolute NRBC (test code = 83994884) 0.00 K/uL Lab Interpretation (test code = 20096-2) Abnormal [facility] BRAIN W AND W/O [id number] 13:53:08IMPRESSION: 1. No acute intracranial abnormalities.2. Mild generalized cerebral volume loss. Mild supratentorial chronicmicrovascular ischemic change. Signed By: Rey Field MD, 05/01/2019 1:53 PM Interface, Rad/Mammog In - 05/01/2019 1:58 PM CSTMRI BRAIN W AND W/O CONTRASTHISTORY: Ataxia, stroke [...] change.Signed By: Rey Field MD, 05/01/2019 1:53 PMVirgin[facility] HospitalCT HEAD W CONTRAST 2019 23:19:25IMPRESSION: Head CT [...] of the origins of the left P1 GUEST SPECIALIST and leftsuperior cerebellar artery (SCA) origin as well as moderate focalst enosis at the left SCA origin which is by visualized on the coronalMIP reformat (series 501, image 10). Posterior cerebral arteries: Patent, no proximal branch occlusion. Theleft P1 segment is hypoplastic and there is a prominent left poste riorcommunicating artery (-time left GUEST SPECIALIST origin). Multifocal luminalirregul arity present within the right P2 GUEST SPECIALIST which result in in varyingdegrees of mild to moderate stenosis. Moderate stenosis in the proximalright P2 segment is best visualized on the axial MIP reformattedsequence (series 500 image 15).Normal Za iants:ACom: PatentPcoms: Patent on the left with -type GUEST SPECIALIST origin. Not well visualized on the right.Vertebral [...] this report.Signed By: Deon Luis MD, 11:19 [facility] [id number] 16:27:00 RUN DATE: 12/26/18 [place] PAGE 1 RUN TIME: 1628 Specimen Inqui ry RUN USER: INTERFACE PATIENT: LAM METZ ACCT #: V [id number] LOC: [facility] U #: [id number] AGE/SX: 58/M ROOM: RE12/25/18REG DR: Seymour Story MD : 56 BED: DIS: STATUS: DEP [facility] TLOC: SPEC #: [id number] RECD: 12/25/18 STATUS: CR LÓPEZ #: [id number] JORGE: 12/25/[address] [facility] [address]: Seymour Story MD ENTERED: 12/25/18 SP TYPE: COLONBX OTHR DR: ORDERED: GROSS PROCEDURES: GROSS (12/26/18140) TISSUES: CECUM, NOS - POLYP COLD BX x1 CLINICAL HISTORY COLLECTION DATE: 12/25/2018 BLOOD IN STOOL POST-OP DIAGNOSIS: COLON POLYP; DIVERTIC ULOSIS; INTERNAL HEMORRHOIDS FINAL DIAGNOSIS Cecal polyp, cold biopsy : COLONIC MUCOSA WITH AREA OF ADENOMATOUS CHANGE COMPATIBLE WITH TUBULAR ADENOMA NEGATIVE FOR HIGH GRADE DYSPLASIA AND MALIGNANCY RRB/gonzalez D 86826 MACROSCOPIC The specimen is received in formalin, labeled with the patient's name, identified as "biopsy sigmoid polyp ", and consists of lee biopsy material measuring 0.3 cm, submitted for histolo gic evaluation. GROSS PERFORMED AT [facility] [address] [place] [address], [place] [address] (K) MICROSCOPIC All of the stains, including any controls perf ormed, stain appropriately. MICROSCOPIC PERFORMED AT [facility] PATHOLOGY CONTINUED ON NEXT PAGE RUN DATE: 12/26/18 Solomon SALAZAR 2 RUN TIME: 1628 S cori Inquiry RUN USER: INTERFACE SPEC #: [id number] PATIENT: LAM METZ #[id number] (Continued) MICROSCOPIC (Continued) [address] [place] [address] (P)[phone] PERFORMING SITE Diagnosis performed at: [facility] [address] [facility], [place] [address] Si gned SIGNATURE ON FILE Jesus Arriaga MD 12/26/18 1627 END OF REPORT [id number] 08:44:00* Test Item Value Reference Range Interpretation Comments GLUBED (test code = GLUBED) 229 mg/dL 74-106 H Performed by certified turret lathe set up operator at [facility] [id number] 06:57:00* Test Item Value Reference Range Interpretation Comments GLUBED (test code = GLUBED) 273 mg/dL 74-106 H Performed by certified turret lathe set up operator at [facility] BASIC METABOLIC [id number] 17:17:00* Test Item Value Reference Range Interpretation [...]
[2020-02-25] MEDS ORDERED: AZITHROMYCIN 500MG/NS 250 ML 250 ML ONE (23:43)
[2020-02-25] MEDS ORDERED: SODIUM CHLORIDE 0.9% 1000ML 1,000 ML ONE (23:43)
[2020-02-25] MEDS: SODIUM CHLORIDE 0.9% 1000ML 1,000 ML IV SCH (23:45)
[2020-02-25] MEDS: AZITHROMYCIN 500MG/SOD CHL 0.9% 250ML BAG IV SCH (23:45)
[2020-02-25 23:56] VITALS: BP 119/74
[2020-02-26] VITALS (10 sets, daily range): BP systolic 100–188; BP diastolic 50–88
[2020-02-26] MEDS ORDERED: POTASSIUM CHLORIDE 20 MEQ TAB CR PO STA (00:23)
--- NOTE | 2020-02-26 01:46 | NUR ---
PT IS TRANSFERRED FROM AOX3 .REPARATIONS ARE EVEN AND UNLABORED SKIN WARM AND DRY TO TOUCH ,CALL LIGHT WITH IN REACH ,ORIENTED THE PT TO THE ENVIRONMENT INFUSING NS AT 125CC/HR ,ASSESSMENT DONE ,CALL LIGHT WITH IN REACH,CONTINUE TO MONITOR
[2020-02-26] MEDS ORDERED: HYDROCHLOROTHIA25 MG (02:23)
[2020-02-26] MEDS ORDERED: GLIMEPIRIDE2 MG PO (02:23)
[2020-02-26] MEDS ORDERED: PIOGLITAZONE15 MG (02:23)
[2020-02-26] MEDS ORDERED: AMLODIPINE BESY10 MG PO (02:23)
[2020-02-26] MEDS ORDERED: METFORMIN HCL500 MG PO (02:23)
[2020-02-26] MEDS ORDERED: DEXILANT30 MG (02:23)
[2020-02-26] MEDS ORDERED: LYRICA100 MG PO (02:23)
[2020-02-26] MEDS ORDERED: LOSARTAN POTASS25 MG (02:23)
--- NOTE | 2020-02-26 05:45 | NUR ---
PT RESTING DENIES PAIN ,CALL LIGHT WITH IN REACH ,CONTINUE TO MONITOR
[2020-02-26 06:45] LABS: BASOPHILS # (AUTO) 0.1 (0.0-0.1); BASOPHILS % 0.4 % (0.0-1.0); EOSINOPHILS # (AUTO) 0.1 (0.0-0.4); EOSINOPHILS % 0.4 % (0.0-6.0); HEMATOCRIT 37.6 % (38.2-49.6); HEMOGLOBIN 13.2 g/dL (14.0-18.0); LYMPHOCYTES # (AUTO) 1.2 (1.0-3.2); LYMPHOCYTES % 8.7 % (18.0-39.1); MEAN CORPUSCULAR HEMOGLOBIN 30.1 pg (28-32); MEAN CORPUSCULAR HGB CONC 35.1 g/dL (31-35); MEAN CORPUSCULAR VOLUME 85.8 fL (81-99); MONOCYTES # (AUTO) 0.9 (0.2-0.8); MONOCYTES % 6.4 % (4.4-11.3); NEUTROPHILS # (AUTO) 11.2 (2.1-6.9); NEUTROPHILS % 81.3 % (38.7-80.0); PLATELET COUNT 108 x10e3/uL (140-360); RED BLOOD COUNT 4.38 x10e6/uL (4.3-5.7); RED CELL DISTRIBUTION WIDTH 13.2 % (11.7-14.4)
--- NOTE | 2020-02-26 07:10 | NUR ---
H&P cc: sob HPI: 59yoM, PCP NONE, developed sob with cough for past 2 months. Worse, so came in. No COVID19 positive relatives/close contacts. PMH: DM2, HTN, PSHx: none Allergies; see emr FH/SH; single; no cigs meds; see MAR ROS: no f/c/s/n/v//D/QU[place]NA/cp/skin rash/confusion/dizziness/vision changs/leg pain v/s; revd PE tired appearing aniceric ns1s2 mod bs soft nt nd no e/t skin dry n. affect labs/meds revd A/P: Sepsis- IVF; IV abx Multifocal PNA- COVID19 negative; IV ceftriaxone/azithromycin/tessalon/antitussives Hypokalemia- replace DM2- hab1c/lipids Thrombocytopenia- avoid heparin products Prop: scd; pepcid dipso: monitor closely; JESSEE FRITZ MD, PHD.
[2020-02-26] MEDS ORDERED: ONDANSETRON HCL INJ 2MG/ML 2ML 2 MG/ML VIAL IV PRN (07:15)
[2020-02-26] MEDS ORDERED: GUAIFENESIN/DEXTROMETHORPHAN LIQD 5 ML UDC NG PRN (07:15)
[2020-02-26] MEDS ORDERED: DOCUSATE SODIUM 100 MG CAP PO PRN (07:15)
[2020-02-26 07:17] LABS: ALANINE AMINOTRANSFERASE 37 IU/L (0-55); ALBUMIN 2.8 g/dL (3.5-5.0); ALBUMIN/GLOBULIN RATIO 0.8 (0.8-2.0); ALKALINE PHOSPHATASE 54 IU/L (40-150); ANION GAP 12.1 mmol/L (8-16); BLOOD UREA NITROGEN 19 mg/dL (7-26); BUN/CREATININE RATIO 20 (6-25); CALCIUM 8.6 mg/dL (8.4-10.2); CARBON DIOXIDE 27 mmol/L (22-29); CHLORIDE 99 mmol/L (98-107); CREATININE, SERUM 0.96 mg/dL (0.72-1.25); EST GLOMERULAR FILTRATION RATE > 60 ML/MIN (60-); GLUCOSE 186 mg/dL (74-118); POTASSIUM 3.1 mmol/L (3.5-5.1); SODIUM 135 mmol/L (136-145)
--- NOTE | 2020-02-26 07:22 | NUR ---
BEDSIDE REPORT GIVEN TO THE ONCOMING NURSE
[2020-02-26 07:49] LABS: CREATINE KINASE 71 IU/L (30-200)
[2020-02-26] MEDS: INSULIN REGULAR, HUMAN 100 UNIT/1 ML 3ML VIAL SQ SCH ×4 (08:00→20:29)
[2020-02-26 08:11] LABS: CHOL/HDL RATIO 4.9 (3.9-4.7)
[2020-02-26] MEDS ORDERED: POTASSIUM CHLORIDE 20 MEQ TAB CR PO ONE (08:50)
[2020-02-26] MEDS: LOSARTAN POTASSIUM 25 MG TAB PO SCH (09:11)
[2020-02-26] MEDS: LORATADINE 10 MG TAB PO SCH (09:11)
[2020-02-26] MEDS: FAMOTIDINE 20 MG TAB PO SCH ×2 (09:11→17:51)
[2020-02-26] MEDS: BENZONATATE 100 MG CAP PO SCH ×3 (09:12→20:24)
[2020-02-26] MEDS: PREGABALIN 50 MG CAP PO SCH ×2 (09:12→17:51)
[2020-02-26] MEDS: SODIUM CHLORIDE 0.9% 1000ML 1,000 ML IV SCH ×3 (10:37→18:42)
--- NOTE | 2020-02-26 12:13 | NUR ---
Discontinuing PT services since patient is independent in functional mobility. Thank you Addendum: 02/26/20 at 1214 by Yury gomez PT Amended: Links added.
[2020-02-26 16:32] LABS: CREATINE KINASE 48 IU/L (30-200)
--- NOTE | 2020-02-26 19:00 | NUR ---
RECEIVED PATIENT IN BEDSIDE SHIFT REPORT. PATIENT RESTING IN BED AT THIS TIME, A&OX3. NO PAIN REPORTED. NO S&S OF DISTRESS NOTED. BED LOCKED IN LOWEST POSITION, SIDE RAILS UPX2, CALL LIGHT IN REACH.
[2020-02-26] MEDS: CEFTRIAXONE SOD 1 GRAM/0.9% SOD CHL 50ML BAG IV SCH (20:24)
[2020-02-26] MEDS ORDERED: ZOLPIDEM TARTRATE 5 MG TAB PO PRN (21:00)
[2020-02-26] MEDS: AZITHROMYCIN 500MG/SOD CHL 0.9% 250ML BAG IV SCH (22:57)
[2020-02-27] VITALS (9 sets, daily range): BP systolic 113–147; BP diastolic 70–93
[2020-02-27] MEDS: SODIUM CHLORIDE 0.9% 1000ML 1,000 ML IV SCH ×2 (04:37→12:25)
[2020-02-27] MEDS: INSULIN REGULAR, HUMAN 100 UNIT/1 ML 3ML VIAL SQ SCH ×4 (08:00→20:25)
[2020-02-27] MEDS: FAMOTIDINE 20 MG TAB PO SCH ×2 (09:00→17:20)
[2020-02-27] MEDS: LORATADINE 10 MG TAB PO SCH (09:00)
[2020-02-27] MEDS: LOSARTAN POTASSIUM 25 MG TAB PO SCH (09:00)
[2020-02-27] MEDS: BENZONATATE 100 MG CAP PO SCH ×3 (09:00→20:25)
[2020-02-27] MEDS: PREGABALIN 50 MG CAP PO SCH ×2 (09:00→17:20)
--- NOTE | 2020-02-27 09:53 | NUR ---
IM- progress note O/N see below ROS: no f/c/s/n/v//D/QUINTANA/cp/skin rash/confusion/dizziness/vision changs/leg pain v/s; revd PE tired appearing aniceric ns1s2 mod bs soft nt nd no e/t skin dry n. affect labs/meds revd A/P: Sepsis- IVF; IV abx Multifocal PNA- COVID19 negative; IV ceftriaxone/azithromycin/tessalon/antitussives Hypokalemia- replace DM2- hab1c/lipids Thrombocytopenia- avoid heparin products Prop: scd; pepcid dipso: monitor closely; 02-26 Hba1c/LDL 9.1 JESSEE FRITZ MD, PHD.
--- NOTE | 2020-02-27 18:55 | NUR ---
Bedside rounds completed with morning nurse. Pt alert and oriented, lying in bed HOB 30 degrees, denies pain at this time. Family at bedside. call light within reach. Bed low and locked.
[2020-02-27] MEDS: CEFTRIAXONE SOD 1 GRAM/0.9% SOD CHL 50ML BAG IV SCH (20:25)
[2020-02-27] MEDS: AZITHROMYCIN 500MG/SOD CHL 0.9% 250ML BAG IV SCH (23:40)
[2020-02-28 04:00] VITALS: BP 128/77
[2020-02-28] MEDS: SODIUM CHLORIDE 0.9% 1000ML 1,000 ML IV SCH ×2 (06:39→07:30)
--- NOTE | 2020-02-28 07:00 | NUR ---
RCD PT AT BED PT IS ALERT AND ORIENTED RESTING ON BED IV PATENT BED LOW AND LOCKED CALL LIGHT IN REACH
[2020-02-28] MEDS: INSULIN REGULAR, HUMAN 100 UNIT/1 ML 3ML VIAL SQ SCH ×2 (07:30→11:30)
[2020-02-28] MEDS: FAMOTIDINE 20 MG TAB PO SCH (07:30)
[2020-02-28 08:00] VITALS: BP 149/93
[2020-02-28] MEDS: LOSARTAN POTASSIUM 25 MG TAB PO SCH (09:00)
[2020-02-28] MEDS: LORATADINE 10 MG TAB PO SCH (09:00)
[2020-02-28] MEDS: BENZONATATE 100 MG CAP PO SCH (09:00)
[2020-02-28] MEDS: PREGABALIN 50 MG CAP PO SCH (09:00)
[2020-02-28 09:06] VITALS: BP 143/93
--- NOTE | 2020-02-28 09:36 | NUR ---
D/c summary Principal Dx: Sepsis- IVF; IV abx Multifocal PNA- COVID19 negative; IV ceftriaxone/azithromycin/tessalon/antitussives Hypokalemia- replace Secondary Dx: DM2- hab1c/lipids Thrombocytopenia- avoid heparin products Prop: scd; pepcid dipso: monitor closely; 02-26 Hba1c/LDL 9.153 02-27 better d/c home stable f/u pcp 2 days d/c>35mins JESSEE FRITZ MD, PHD.
--- NOTE | 2020-02-28 11:00 | NUR ---
PT AND FAMILY REQUESTED TO GO HOME PAGED DR FRITZ AND LEFT THE MESSAGE
[2020-02-28 12:00] VITALS: BP 144/95
[2020-02-28] MEDS ORDERED: TESSALON PERLE100 MG PO (13:45)
[2020-02-28] MEDS ORDERED: KEFLEX500 MG PO (13:45)
[2020-02-28] MEDS ORDERED: ZITHROMAX500 MG PO (13:45)
[2020-02-28] MEDS ORDERED: Guaifenesin/Dextromethorphan NG (13:45)
[2020-02-28] MEDS ORDERED: LORATADINE10 MG PO (13:45)
[2020-02-28] MEDS ORDERED: ONDANSETRON HCL 4 MG ORAL DISINTEGRATING TAB PO PRN (14:00)
--- NOTE | 2020-02-28 14:40 | NUR ---
PATIENT WENT HOME IN SAFE CONDITION WITH HIS DAUGHTER
--- NOTE | 2020-02-28 14:40 | NUR ---
PATIENT WENT HOME IN SAFE CONDITION WITH HIS DAUGHTER
== END 2020-02-28 14:41 | disposition home or self-care (01) | DRG 871 ==
LOC: ER 20:15 → ERHOLD 23:32 → MED/SURG2 23:56
PROVIDERS: ADMIT Internal Medicine; ATTEND Internal Medicine
DX: A41.9 Sepsis, unspecified organism (principal); J15.9 Unspecified bacterial pneumonia; E87.6 Hypokalemia; Z20.828 Contact with and (suspected) exposure to other viral communicable diseases; E11.9 Type 2 diabetes mellitus without complications; D69.6 Thrombocytopenia, unspecified; Z79.4 Long term (current) use of insulin
CPT/HCPCS: 36415; 71045; 71250; 80053; 80061; 82550; 82553; 82948; 83036; 83605; 84484; 85025; 87040; 87400; 93005; 96361; 99284; J0456; J0696; J7030; U0002

== ENCOUNTER → 2020-03-06 | Outpatient (CLI) | payer MEDICARE, OTHER ==
[~2020-03-06] MED LIST: AMLODIPINE BESY10 MG PO; DEXILANT30 MG; GLIMEPIRIDE2 MG PO; Guaifenesin/Dextromethorphan NG; HYDROCHLOROTHIA25 MG; KEFLEX500 MG PO; LORATADINE10 MG PO; LOSARTAN POTASS25 MG; LYRICA100 MG PO; METFORMIN HCL500 MG PO; PIOGLITAZONE15 MG; TESSALON PERLE100 MG PO; ZITHROMAX500 MG PO
--- NOTE | 2020-03-06 15:33 | Diagnostic Imaging Report ---
X-ray chest 2 views History: Pneumonia Comparison: 02.25.2020 Findings: Central airways: Unremarkable. Heart: Normal size. Major vessels: Unremarkable. Mediastinal silhouettes: Unremarkable. Pleural spaces: No pleural effusion or pneumothorax. Lungs: No significant focal lung disease. Previously seen opacity in the right upper lung zone has resolved. Skeletal structures: Unremarkable. Extrathoracic soft tissues: Unremarkable. Impression: Resolution of previously seen opacities in the lung. Signed by: Remberto Hensley MD on 03/06/2020 3:30 PM
== END ==
LOC: RAD 13:41
PROVIDERS: ATTEND Internal Medicine
DX: J18.9 Pneumonia, unspecified organism (principal)
CPT/HCPCS: 71046

== ENCOUNTER 2021-01-28 11:42 | Inpatient (IN) | payer MEDICARE, OTHER ==
[~2021-01-28] VITALS: Ht 177.8 cm; Wt 109.4 kg
[2021-01-28] MEDS ORDERED: SODIUM CHLORIDE 0.9% 1000ML 1,000 ML IV STA (12:14)
[2021-01-28 12:30] LABS: BASOPHILS % 0.3 % (0.0-1.0); HEMATOCRIT 46.6 % (38.2-49.6); HEMOGLOBIN 16.4 g/dL (14.0-18.0); LYMPHOCYTES # (AUTO) 0.9 (1.0-3.2); LYMPHOCYTES % 9.4 % (18.0-39.1); MEAN CORPUSCULAR HEMOGLOBIN 29.5 pg (28-32); MEAN CORPUSCULAR HGB CONC 35.2 g/dL (31-35); MEAN CORPUSCULAR VOLUME 83.8 fL (81-99); MONOCYTES # (AUTO) 0.8 (0.2-0.8); MONOCYTES % 8.8 % (4.4-11.3); NEUTROPHILS # (AUTO) 7.3 (2.1-6.9); NEUTROPHILS % 80.8 % (38.7-80.0); PLATELET COUNT 141 x10e3/uL (140-360); RED BLOOD COUNT 5.56 x10e6/uL (4.3-5.7); RED CELL DISTRIBUTION WIDTH 13.6 % (11.7-14.4)
[2021-01-28 12:51] LABS: ALBUMIN 3.7 g/dL (3.5-5.0); ALBUMIN/GLOBULIN RATIO 0.8 (0.8-2.0); ANION GAP 20.4 mmol/L (8-16); CALCIUM 8.5 mg/dL (8.4-10.2); CREATININE, SERUM 0.95 mg/dL (0.72-1.25); POTASSIUM 3.4 mmol/L (3.5-5.1)
[2021-01-28 12:52] LABS: PARTIAL THROMBOPLASTIN TIME 32.7 seconds (23.8-35.5)
[2021-01-28 12:59] LABS: CREATINE KINASE MB 0.5 ng/mL (0-5.0)
[2021-01-28] MEDS ORDERED: VECURONIUM BROMIDE FOR INJ 20 MG VIAL ONE (13:16)
[2021-01-28] MEDS ORDERED: ETOMIDATE 2 MG/ML 10 ML INJ IV ONE (13:16)
[2021-01-28] MEDS ORDERED: MIDAZOLAM HCL 2 MG/2 ML VIAL ONE (13:16)
[2021-01-28] MEDS ORDERED: WATER STERILE 10 ML VIAL ONE (13:16)
[2021-01-28] MEDS ORDERED: SUCCINYLCHOLINE CHLORIDE 20 MG/ML 10ML VIAL ONE (13:16)
[2021-01-28] MEDS: CEFTRIAXONE 1 GM in SODIUM CHLORIDE 0.9% 50ML 50 ML IV SCH (13:21)
[2021-01-28] MEDS ORDERED: SODIUM CHLORIDE 0.9% 250ML 250 ML ONE (13:24)
[2021-01-28] MEDS: ALBUTEROL SULFATE HFA 8GM INHALATION AEROSOL INH PRN (13:26)
[2021-01-28] MEDS ORDERED: DEXAMETHASONE SOD PHOS 10 MG/1 ML VIAL IV ONE (14:30)
[2021-01-28 14:50] LABS: CLARITY,URINE CLEAR (CLEAR); COLOR,URINE YELLOW (YELLOW); LEUKOCYTE ESTERASE ,URINE NEGATIVE (NEGATIVE); NITRITE,URINE NEGATIVE (NEGATIVE); PROTEIN,URINE DIPSTICK 1+ (NEGATIVE)
[2021-01-28 14:51] LABS: KETONES,URINE 2+ (NEGATIVE); URINE UROBILINOGEN 0.2 mg/dL (0.2 - 1)
[2021-01-28 14:55] LABS: MUCUS,URINE FEW (RARE); RBC,URINE 0-5 /HPF (0-5)
[2021-01-28] MEDS ORDERED: ACETAMINOPHEN 325 MG TAB PO ONE (15:45)
[2021-01-28] MEDS ORDERED: SODIUM CHLORIDE 0.9% 50ML 50 ML ONE (16:16)
[2021-01-28] MEDS ORDERED: IOPAMIDOL 370 MG/ML 200 ML INFUS..BTL INJ ONE (16:16)
[2021-01-28] MEDS: SODIUM CHLORIDE 0.9% 1000ML 1,000 ML IV SCH ×2 (16:26→22:56)
[2021-01-28 17:08] VITALS: BP 141/86
[2021-01-28 19:37] VITALS: BP 135/94
[2021-01-28 20:00] VITALS: BP 135/94
[2021-01-29] VITALS (9 sets, daily range): BP systolic 130–175; BP diastolic 74–90
[2021-01-29] MEDS: SODIUM CHLORIDE 0.9% 1000ML 1,000 ML IV SCH (06:00)
[2021-01-29] MEDS: ALBUTEROL SULFATE HFA 8GM INHALATION AEROSOL INH PRN (06:00)
[2021-01-29] MEDS ORDERED: POTASSIUM CHLORIDE 20 MEQ TAB CR PO NR (09:15)
[2021-01-29] MEDS ORDERED: DEXTROSE 50% SYRINGE 50 ML IV PRN (09:15)
[2021-01-29] MEDS ORDERED: LACTATED RINGER'S 1,000 ML INJ ONE (09:15)
[2021-01-29] MEDS ORDERED: ACETAMINOPHEN 325 MG TAB PO PRN (10:00)
[2021-01-29] MEDS: LABETALOL HCL 5 MG/ML 20ML VIAL IV PRN (10:46)
[2021-01-29 11:11] LABS: BASOPHILS % 0.2 % (0.0-1.0); HEMATOCRIT 43.1 % (38.2-49.6); HEMOGLOBIN 15.2 g/dL (14.0-18.0); LYMPHOCYTES # (AUTO) 0.5 (1.0-3.2); LYMPHOCYTES % 4.7 % (18.0-39.1); MEAN CORPUSCULAR HEMOGLOBIN 29.7 pg (28-32); MEAN CORPUSCULAR HGB CONC 35.3 g/dL (31-35); MEAN CORPUSCULAR VOLUME 84.2 fL (81-99); MONOCYTES # (AUTO) 0.8 (0.2-0.8); MONOCYTES % 6.7 % (4.4-11.3); NEUTROPHILS # (AUTO) 10.2 (2.1-6.9); NEUTROPHILS % 87.6 % (38.7-80.0); PLATELET COUNT 149 x10e3/uL (140-360); RED BLOOD COUNT 5.12 x10e6/uL (4.3-5.7); RED CELL DISTRIBUTION WIDTH 13.6 % (11.7-14.4)
[2021-01-29 11:38] LABS: ALBUMIN 3.2 g/dL (3.5-5.0); ALBUMIN/GLOBULIN RATIO 0.7 (0.8-2.0); ANION GAP 18.4 mmol/L (8-16); CALCIUM 8.5 mg/dL (8.4-10.2); CREATININE, SERUM 0.92 mg/dL (0.72-1.25); POTASSIUM 3.4 mmol/L (3.5-5.1)
[2021-01-29] MEDS: INSULIN LISPRO 100 UNIT/1 ML 3ML VIAL SQ SCH ×3 (12:16→21:37)
[2021-01-29] MEDS: CEFTRIAXONE 1 GM in SODIUM CHLORIDE 0.9% 50ML 50 ML IV SCH (12:33)
[2021-01-29 12:46] LABS: FERRITIN 605.88 ng/mL (21.81-274.66)
[2021-01-29] MEDS ORDERED: DEXAMETHASONE SOD PHOS 10 MG/1 ML VIAL IV SCH (15:00)
[2021-01-29] MEDS ORDERED: REMDESIVIR 100MG 100 MG in SODIUM CHLORIDE 0.9% 100 ML IV SCH (17:00)
[2021-01-29] MEDS ORDERED: REMDESIVIR 100MG 100 MG in SODIUM CHLORIDE 0.9% 100 ML IV ONE (19:00)
[2021-01-29] MEDS ORDERED: REMDESIVIR 200MG 200 MG in SODIUM CHLORIDE 0.9% 100 ML IV ONE (20:00)
[2021-01-29] MEDS: ZOLPIDEM TARTRATE 5 MG TAB PO PRN (22:40)
[2021-01-30] VITALS (11 sets, daily range): BP systolic 124–174; BP diastolic 68–98
[2021-01-30 05:48] LABS: BASOPHILS % 0.2 % (0.0-1.0); HEMATOCRIT 50.8 % (38.2-49.6); HEMOGLOBIN 17.9 g/dL (14.0-18.0); LYMPHOCYTES # (AUTO) 0.7 (1.0-3.2); LYMPHOCYTES % 4.1 % (18.0-39.1); MEAN CORPUSCULAR HEMOGLOBIN 29.7 pg (28-32); MEAN CORPUSCULAR HGB CONC 35.2 g/dL (31-35); MEAN CORPUSCULAR VOLUME 84.4 fL (81-99); MONOCYTES # (AUTO) 0.9 (0.2-0.8); MONOCYTES % 5.5 % (4.4-11.3); NEUTROPHILS # (AUTO) 14.7 (2.1-6.9); NEUTROPHILS % 89.3 % (38.7-80.0); PLATELET COUNT 224 x10e3/uL (140-360); RED BLOOD COUNT 6.02 x10e6/uL (4.3-5.7); RED CELL DISTRIBUTION WIDTH 13.8 % (11.7-14.4)
[2021-01-30 06:15] LABS: ALBUMIN 3.5 g/dL (3.5-5.0); ALBUMIN/GLOBULIN RATIO 0.7 (0.8-2.0); ANION GAP 19.6 mmol/L (8-16); CALCIUM 9.4 mg/dL (8.4-10.2); CREATININE, SERUM 0.84 mg/dL (0.72-1.25); MAGNESIUM 2.3 MG/DL (1.3-2.1); POTASSIUM 3.6 mmol/L (3.5-5.1)
[2021-01-30] MEDS: INSULIN LISPRO 100 UNIT/1 ML 3ML VIAL SQ SCH ×4 (08:15→20:43)
[2021-01-30] MEDS: DEXAMETHASONE SOD PHOS 10 MG/1 ML VIAL IV SCH (08:28)
[2021-01-30] MEDS: AMLODIPINE BESYLATE 10 MG TAB PO SCH (08:29)
[2021-01-30] MEDS ORDERED: LOSARTAN POTASSIUM 25 MG TAB PO SCH (09:00)
[2021-01-30] MEDS ORDERED: INSULIN GLARGINE 100 UNITS/ML VIAL SQ NR (09:45)
[2021-01-30] MEDS: PIPERACILLIN/TAZOBACTAM 3.375 GM in SODIUM CHLORIDE 0.9% 50ML 50 ML IV SCH ×3 (12:40→23:49)
[2021-01-30] MEDS: METOPROLOL TARTRATE 50 MG TAB PO SCH ×3 (12:40→21:17)
[2021-01-30] MEDS: REMDESIVIR 100MG 100 MG in SODIUM CHLORIDE 0.9% 100 ML IV SCH (13:43)
[2021-01-30] MEDS ORDERED: HYDRALAZINE HCL 20 MG/ML VIAL IV PRN (14:30)
[2021-01-30] MEDS ORDERED: METHYLPREDNISOLONE SOD SUCC 125 MG/2ML VIAL IV NR (14:30)
[2021-01-30] MEDS ORDERED: ONDANSETRON HCL INJ 2MG/ML 2ML 2 MG/ML VIAL IV PRN (14:30)
[2021-01-30] MEDS: ENOXAPARIN SOD INJ 40 MG/0.4 ML SYR SC SCH (17:31)
[2021-01-30] MEDS: INSULIN GLARGINE 100 UNITS/ML VIAL SQ SCH (20:44)
[2021-01-30] MEDS: ZOLPIDEM TARTRATE 5 MG TAB PO PRN (21:22)
[2021-01-31] VITALS (8 sets, daily range): BP systolic 110–140; BP diastolic 67–82
[2021-01-31 05:13] LABS: BASOPHILS % 0.2 % (0.0-1.0); HEMATOCRIT 44.7 % (38.2-49.6); HEMOGLOBIN 15.8 g/dL (14.0-18.0); LYMPHOCYTES # (AUTO) 0.5 (1.0-3.2); LYMPHOCYTES % 3.6 % (18.0-39.1); MEAN CORPUSCULAR HEMOGLOBIN 29.4 pg (28-32); MEAN CORPUSCULAR HGB CONC 35.3 g/dL (31-35); MEAN CORPUSCULAR VOLUME 83.1 fL (81-99); MONOCYTES # (AUTO) 0.8 (0.2-0.8); MONOCYTES % 5.5 % (4.4-11.3); NEUTROPHILS # (AUTO) 12.3 (2.1-6.9); NEUTROPHILS % 89.9 % (38.7-80.0); PLATELET COUNT 205 x10e3/uL (140-360); RED BLOOD COUNT 5.38 x10e6/uL (4.3-5.7)
[2021-01-31 05:46] LABS: ALBUMIN 3.1 g/dL (3.5-5.0); ALBUMIN/GLOBULIN RATIO 0.7 (0.8-2.0); ANION GAP 16.9 mmol/L (8-16); CALCIUM 8.7 mg/dL (8.4-10.2); CREATININE, SERUM 0.75 mg/dL (0.72-1.25); POTASSIUM 3.9 mmol/L (3.5-5.1)
[2021-01-31] MEDS: METOPROLOL TARTRATE 50 MG TAB PO SCH ×3 (06:01→21:33)
[2021-01-31] MEDS: PIPERACILLIN/TAZOBACTAM 3.375 GM in SODIUM CHLORIDE 0.9% 50ML 50 ML IV SCH ×3 (06:01→17:09)
[2021-01-31 06:06] LABS: THYROID STIMULATING HORMONE 0.537 uIU/mL (0.350-4.940)
[2021-01-31] MEDS: INSULIN LISPRO 100 UNIT/1 ML 3ML VIAL SQ SCH ×4 (07:30→20:46)
[2021-01-31] MEDS ORDERED: ENOXAPARIN SOD INJ 40 MG/0.4 ML SYR SC SCH (09:00)
[2021-01-31] MEDS: DEXAMETHASONE SOD PHOS 10 MG/1 ML VIAL IV SCH (09:00)
[2021-01-31] MEDS: ENOXAPARIN SOD INJ 40 MG/0.4 ML SYR SC SCH ×2 (09:03→17:09)
[2021-01-31] MEDS: AMLODIPINE BESYLATE 10 MG TAB PO SCH (09:03)
[2021-01-31] MEDS ORDERED: INSULIN GLARGINE 100 UNITS/ML VIAL SQ ONE (10:00)
[2021-01-31] MEDS: REMDESIVIR 100MG 100 MG in SODIUM CHLORIDE 0.9% 100 ML IV SCH (14:32)
[2021-01-31] MEDS: INSULIN GLARGINE 100 UNITS/ML VIAL SQ SCH (20:45)
[2021-01-31] MEDS: GUAIFENESIN/CODEINE 5 ML LIQD PO PRN (21:33)
[2021-01-31] MEDS: ZOLPIDEM TARTRATE 5 MG TAB PO PRN (21:35)
[2021-02-01] VITALS (9 sets, daily range): BP systolic 118–144; BP diastolic 61–82
[2021-02-01] MEDS: PIPERACILLIN/TAZOBACTAM 3.375 GM in SODIUM CHLORIDE 0.9% 50ML 50 ML IV SCH ×5 (00:25→23:21)
[2021-02-01] MEDS ORDERED: SODIUM CHLORIDE 0.9% 100 ML ONE (04:59)
[2021-02-01] MEDS: METOPROLOL TARTRATE 50 MG TAB PO SCH ×3 (05:08→21:07)
[2021-02-01 06:02] LABS: ANION GAP 15.3 mmol/L (8-16); CALCIUM 8.6 mg/dL (8.4-10.2); CREATININE, SERUM 0.87 mg/dL (0.72-1.25); POTASSIUM 3.3 mmol/L (3.5-5.1)
[2021-02-01] MEDS: INSULIN LISPRO 100 UNIT/1 ML 3ML VIAL SQ SCH ×4 (07:30→20:43)
[2021-02-01] MEDS: DEXAMETHASONE SOD PHOS 10 MG/1 ML VIAL IV SCH (08:45)
[2021-02-01] MEDS: AMLODIPINE BESYLATE 10 MG TAB PO SCH (08:46)
[2021-02-01] MEDS: ENOXAPARIN SOD INJ 40 MG/0.4 ML SYR SC SCH ×2 (08:46→16:11)
[2021-02-01 09:16] LABS: BASOPHILS % 0.1 % (0.0-1.0); HEMATOCRIT 44.4 % (38.2-49.6); LYMPHOCYTES # (AUTO) 0.4 (1.0-3.2); LYMPHOCYTES % 3.4 % (18.0-39.1); MEAN CORPUSCULAR HGB CONC 33.8 g/dL (31-35); MEAN CORPUSCULAR VOLUME 85.7 fL (81-99); MONOCYTES # (AUTO) 0.7 (0.2-0.8); MONOCYTES % 6.1 % (4.4-11.3); NEUTROPHILS # (AUTO) 10.6 (2.1-6.9); NEUTROPHILS % 89.8 % (38.7-80.0); PLATELET COUNT 261 x10e3/uL (140-360); RED BLOOD COUNT 5.18 x10e6/uL (4.3-5.7); RED CELL DISTRIBUTION WIDTH 14.2 % (11.7-14.4)
[2021-02-01] MEDS ORDERED: POTASSIUM CHLORIDE 10MEQ EA PO ONE (10:00)
[2021-02-01] MEDS ORDERED: SODIUM CHLORIDE 0.9% 250ML 250 ML ONE (11:47)
[2021-02-01] MEDS: REMDESIVIR 100MG 100 MG in SODIUM CHLORIDE 0.9% 100 ML IV SCH (13:06)
[2021-02-01] MEDS: INSULIN GLARGINE 100 UNITS/ML VIAL SQ SCH (20:43)
[2021-02-01] MEDS: ZOLPIDEM TARTRATE 5 MG TAB PO PRN (20:44)
[2021-02-01] MEDS: GUAIFENESIN/CODEINE 5 ML LIQD PO PRN (20:44)
[2021-02-02] VITALS (12 sets, daily range): BP systolic 99–154; BP diastolic 60–88
[2021-02-02] MEDS ORDERED: DEXMEDETOMIDINE 400MCG/NS100ML 100 ML IV PRN (05:00)
[2021-02-02] MEDS: PIPERACILLIN/TAZOBACTAM 3.375 GM in SODIUM CHLORIDE 0.9% 50ML 50 ML IV SCH ×3 (06:22→17:29)
[2021-02-02] MEDS: METOPROLOL TARTRATE 50 MG TAB PO SCH ×3 (06:22→21:31)
[2021-02-02] MEDS: INSULIN LISPRO 100 UNIT/1 ML 3ML VIAL SQ SCH ×4 (07:30→20:59)
[2021-02-02] MEDS: BARICITINIB 2 MG TABLET PO SCH (09:00)
[2021-02-02] MEDS: AMLODIPINE BESYLATE 10 MG TAB PO SCH (09:00)
[2021-02-02] MEDS: ENOXAPARIN SOD INJ 40 MG/0.4 ML SYR SC SCH ×2 (09:48→17:29)
[2021-02-02] MEDS: DEXAMETHASONE SOD PHOS 10 MG/1 ML VIAL IV SCH (09:48)
[2021-02-02 11:20] LABS: ANION GAP 14.8 mmol/L (8-16); CALCIUM 8.4 mg/dL (8.4-10.2); CREATININE, SERUM 0.89 mg/dL (0.72-1.25); POTASSIUM 3.8 mmol/L (3.5-5.1)
[2021-02-02] MEDS ORDERED: ROCURONIUM 1250MG/NS 250 250 ML ONE (11:47)
[2021-02-02 12:15] LABS: BASOPHILS % 0.2 % (0.0-1.0); HEMATOCRIT 44.5 % (38.2-49.6); HEMOGLOBIN 14.4 g/dL (14.0-18.0); LYMPHOCYTES # (AUTO) 0.4 (1.0-3.2); LYMPHOCYTES % 3.4 % (18.0-39.1); MEAN CORPUSCULAR HEMOGLOBIN 28.5 pg (28-32); MEAN CORPUSCULAR HGB CONC 32.4 g/dL (31-35); MEAN CORPUSCULAR VOLUME 88.1 fL (81-99); MONOCYTES # (AUTO) 0.5 (0.2-0.8); NEUTROPHILS # (AUTO) 9.5 (2.1-6.9); NEUTROPHILS % 89.9 % (38.7-80.0); RED BLOOD COUNT 5.05 x10e6/uL (4.3-5.7); RED CELL DISTRIBUTION WIDTH 14.3 % (11.7-14.4)
[2021-02-02] MEDS ORDERED: LACTATED RINGER'S 1,000 ML ONE (12:16)
[2021-02-02] MEDS ORDERED: NOREPINEPHRINE 8 MG/D5W 250 ML 250 ML ONE (12:19)
[2021-02-02 12:21] LABS: PLATELET COUNT 128 x10e3/uL (140-360)
[2021-02-02] MEDS: MIDAZOLAM HCL 5MG/ML 10ML VIAL 100 ML IV PRN ×2 (12:48→20:48)
[2021-02-02] MEDS: FENTANYL 2000MCG/NS 250 250 ML IV PRN (12:49)
[2021-02-02] MEDS ORDERED: SODIUM CHLORIDE 0.9% 1000ML 1,000 ML ONE (13:06)
[2021-02-02] MEDS: REMDESIVIR 100MG 100 MG in SODIUM CHLORIDE 0.9% 100 ML IV SCH (14:12)
[2021-02-02 16:30] LABS: ABG HCO3 25 mmol/L (22-26); ABG PCO2 56 mmHg (35-45); ABG PH 7.26 (7.35-7.45); ABG PO2 73 mmHg (80-105); ABG TCO2 27
[2021-02-02] MEDS ORDERED: NOREPINEPHRINE 8 MG/D5W 250 ML 250 ML IV SCH (18:15)
[2021-02-02] MEDS: INSULIN GLARGINE 100 UNITS/ML VIAL SQ SCH (21:00)
[2021-02-03] VITALS (25 sets, daily range): BP systolic 104–142; BP diastolic 57–81
[2021-02-03] MEDS: FENTANYL 2000MCG/NS 250 250 ML IV PRN ×2 (00:12→11:14)
[2021-02-03] MEDS: METOPROLOL TARTRATE 50 MG TAB PO SCH ×3 (06:00→21:29)
[2021-02-03] MEDS: PIPERACILLIN/TAZOBACTAM 3.375 GM in SODIUM CHLORIDE 0.9% 50ML 50 ML IV SCH ×4 (06:25→11:12)
[2021-02-03 06:50] LABS: BASOPHILS % 0.2 % (0.0-1.0); EOSINOPHILS % 0.1 % (0.0-6.0); HEMATOCRIT 43.3 % (38.2-49.6); HEMOGLOBIN 14.4 g/dL (14.0-18.0); LYMPHOCYTES # (AUTO) 0.3 (1.0-3.2); LYMPHOCYTES % 2.9 % (18.0-39.1); MEAN CORPUSCULAR HEMOGLOBIN 28.9 pg (28-32); MEAN CORPUSCULAR HGB CONC 33.3 g/dL (31-35); MEAN CORPUSCULAR VOLUME 86.9 fL (81-99); MONOCYTES # (AUTO) 0.3 (0.2-0.8); MONOCYTES % 3.3 % (4.4-11.3); NEUTROPHILS % 92.7 % (38.7-80.0); RED BLOOD COUNT 4.98 x10e6/uL (4.3-5.7); RED CELL DISTRIBUTION WIDTH 14.3 % (11.7-14.4)
[2021-02-03 06:59] LABS: ALBUMIN 2.3 g/dL (3.5-5.0); ALBUMIN/GLOBULIN RATIO 0.7 (0.8-2.0); ANION GAP 12.3 mmol/L (8-16); CALCIUM 7.8 mg/dL (8.4-10.2); CREATININE, SERUM 0.74 mg/dL (0.72-1.25); MAGNESIUM 2.2 MG/DL (1.3-2.1); PHOSPHORUS 2.6 MG/DL (2.3-4.7); POTASSIUM 4.3 mmol/L (3.5-5.1)
[2021-02-03 07:06] LABS: PLATELET COUNT 99 x10e3/uL (140-360)
[2021-02-03] MEDS: INSULIN LISPRO 100 UNIT/1 ML 3ML VIAL SQ SCH ×4 (07:33→21:27)
[2021-02-03] MEDS: DEXAMETHASONE SOD PHOS 10 MG/1 ML VIAL IV SCH (08:14)
[2021-02-03] MEDS: AMLODIPINE BESYLATE 10 MG TAB PO SCH (08:15)
[2021-02-03] MEDS: BARICITINIB 2 MG TABLET PO SCH (08:15)
[2021-02-03] MEDS: ENOXAPARIN SOD INJ 40 MG/0.4 ML SYR SC SCH ×2 (08:16→16:26)
[2021-02-03] MEDS: MIDAZOLAM HCL 5MG/ML 10ML VIAL 100 ML IV PRN ×2 (08:17→16:17)
[2021-02-03 08:43] LABS: ABG HCO3 25 mmol/L (22-26); ABG PCO2 50 mmHg (35-45); ABG PH 7.31 (7.35-7.45); ABG PO2 74 mmHg (80-105); ABG TCO2 27
[2021-02-03] MEDS: ROCURONIUM 1250MG/NS 250 250 ML IV PRN (10:25)
[2021-02-03] MEDS: INSULIN GLARGINE 100 UNITS/ML VIAL SQ SCH (21:29)
[2021-02-04] VITALS (26 sets, daily range): BP systolic 102–156; BP diastolic 52–91
[2021-02-04] MEDS: MIDAZOLAM HCL 5MG/ML 10ML VIAL 100 ML IV PRN ×5 (00:48→20:42)
[2021-02-04] MEDS: FENTANYL 2000MCG/NS 250 250 ML IV PRN ×3 (01:26→17:53)
[2021-02-04] MEDS: METOPROLOL TARTRATE 50 MG TAB PO SCH ×3 (05:48→21:06)
[2021-02-04] MEDS: ACETAMINOPHEN 325 MG TAB PO PRN ×2 (05:49→20:41)
[2021-02-04 06:06] LABS: BASOPHILS % 0.2 % (0.0-1.0); EOSINOPHILS % 0.4 % (0.0-6.0); HEMATOCRIT 42.3 % (38.2-49.6); HEMOGLOBIN 13.9 g/dL (14.0-18.0); LYMPHOCYTES # (AUTO) 0.3 (1.0-3.2); LYMPHOCYTES % 2.7 % (18.0-39.1); MEAN CORPUSCULAR HEMOGLOBIN 28.7 pg (28-32); MEAN CORPUSCULAR HGB CONC 32.9 g/dL (31-35); MEAN CORPUSCULAR VOLUME 87.2 fL (81-99); MONOCYTES # (AUTO) 0.5 (0.2-0.8); MONOCYTES % 4.2 % (4.4-11.3); NEUTROPHILS # (AUTO) 10.1 (2.1-6.9); NEUTROPHILS % 91.3 % (38.7-80.0); PLATELET COUNT 96 x10e3/uL (140-360); RED BLOOD COUNT 4.85 x10e6/uL (4.3-5.7); RED CELL DISTRIBUTION WIDTH 14.3 % (11.7-14.4)
[2021-02-04 06:25] LABS: ALBUMIN/GLOBULIN RATIO 0.6 (0.8-2.0); ANION GAP 11.4 mmol/L (8-16); CALCIUM 8.7 mg/dL (8.4-10.2); CREATININE, SERUM 0.69 mg/dL (0.72-1.25); POTASSIUM 4.4 mmol/L (3.5-5.1)
[2021-02-04] MEDS: INSULIN LISPRO 100 UNIT/1 ML 3ML VIAL SQ SCH ×4 (07:40→21:01)
[2021-02-04] MEDS: DEXAMETHASONE SOD PHOS 10 MG/1 ML VIAL IV SCH (08:01)
[2021-02-04] MEDS: AMLODIPINE BESYLATE 10 MG TAB PO SCH (08:01)
[2021-02-04] MEDS: BARICITINIB 2 MG TABLET PO SCH (08:01)
[2021-02-04] MEDS: ENOXAPARIN SOD INJ 40 MG/0.4 ML SYR SC SCH ×2 (08:01→16:09)
[2021-02-04] MEDS: ROCURONIUM 1250MG/NS 250 250 ML IV PRN (08:02)
[2021-02-04 08:13] LABS: ABG PH 7.33 (7.35-7.45)
[2021-02-04 08:14] LABS: ABG HCO3 29 mmol/L (22-26); ABG PCO2 54 mmHg (35-45); ABG PO2 75 mmHg (80-105); ABG TCO2 30
[2021-02-04] MEDS: INSULIN GLARGINE 100 UNITS/ML VIAL SQ SCH (21:01)
[2021-02-05] VITALS (25 sets, daily range): BP systolic 94–147; BP diastolic 53–73
[2021-02-05] MEDS: FENTANYL 2000MCG/NS 250 250 ML IV PRN ×3 (02:01→17:35)
[2021-02-05] MEDS: MIDAZOLAM HCL 5MG/ML 10ML VIAL 100 ML IV PRN ×6 (02:03→23:00)
[2021-02-05 06:37] LABS: BASOPHILS % 0.1 % (0.0-1.0); EOSINOPHILS # (AUTO) 0.3 (0.0-0.4); EOSINOPHILS % 2.9 % (0.0-6.0); HEMATOCRIT 41.4 % (38.2-49.6); HEMOGLOBIN 13.2 g/dL (14.0-18.0); LYMPHOCYTES # (AUTO) 0.3 (1.0-3.2); LYMPHOCYTES % 3.5 % (18.0-39.1); MEAN CORPUSCULAR HEMOGLOBIN 28.9 pg (28-32); MEAN CORPUSCULAR HGB CONC 31.9 g/dL (31-35); MEAN CORPUSCULAR VOLUME 90.8 fL (81-99); MONOCYTES # (AUTO) 0.5 (0.2-0.8); MONOCYTES % 5.7 % (4.4-11.3); NEUTROPHILS # (AUTO) 7.4 (2.1-6.9); NEUTROPHILS % 86.4 % (38.7-80.0); PLATELET COUNT 88 x10e3/uL (140-360); RED BLOOD COUNT 4.56 x10e6/uL (4.3-5.7); RED CELL DISTRIBUTION WIDTH 14.2 % (11.7-14.4)
[2021-02-05 06:59] LABS: ALBUMIN 1.9 g/dL (3.5-5.0); ALBUMIN/GLOBULIN RATIO 0.5 (0.8-2.0); ANION GAP 12.3 mmol/L (8-16); CREATININE, SERUM 0.74 mg/dL (0.72-1.25); POTASSIUM 4.3 mmol/L (3.5-5.1)
[2021-02-05] MEDS: METOPROLOL TARTRATE 50 MG TAB PO SCH ×3 (07:11→22:00)
[2021-02-05] MEDS: AMLODIPINE BESYLATE 10 MG TAB PO SCH (08:17)
[2021-02-05] MEDS: DEXAMETHASONE SOD PHOS 10 MG/1 ML VIAL IV SCH (08:17)
[2021-02-05] MEDS: BARICITINIB 2 MG TABLET PO SCH (08:17)
[2021-02-05] MEDS: INSULIN LISPRO 100 UNIT/1 ML 3ML VIAL SQ SCH ×4 (08:18→22:30)
[2021-02-05] MEDS: ACETAMINOPHEN 325 MG TAB PO PRN (08:22)
[2021-02-05 08:39] LABS: ABG PCO2 61 mmHg (35-45); ABG PH 7.31 (7.35-7.45)
[2021-02-05 08:40] LABS: ABG HCO3 31 mmol/L (22-26); ABG PO2 73 mmHg (80-105); ABG TCO2 33
[2021-02-05] MEDS ORDERED: ENOXAPARIN SOD INJ 40 MG/0.4 ML SYR SC SCH (09:00)
[2021-02-05] MEDS: FONDAPARINUX SODIUM 2.5 MG/0.5 ML SYR SQ SCH (09:35)
[2021-02-05] MEDS: ROCURONIUM 1250MG/NS 250 250 ML IV PRN (11:41)
[2021-02-05] MEDS: INSULIN GLARGINE 100 UNITS/ML VIAL SQ SCH (22:30)
[2021-02-06] VITALS (18 sets, daily range): BP systolic 116–135; BP diastolic 50–74
[2021-02-06] MEDS: FENTANYL 2000MCG/NS 250 250 ML IV PRN ×3 (01:45→18:31)
[2021-02-06] MEDS: MIDAZOLAM HCL 5MG/ML 10ML VIAL 100 ML IV PRN ×3 (04:05→14:30)
[2021-02-06] MEDS: METOPROLOL TARTRATE 50 MG TAB PO SCH ×3 (06:32→22:20)
[2021-02-06 06:35] LABS: BASOPHILS % 0.1 % (0.0-1.0); HEMATOCRIT 39.9 % (38.2-49.6); HEMOGLOBIN 12.5 g/dL (14.0-18.0); LYMPHOCYTES # (AUTO) 0.2 (1.0-3.2); LYMPHOCYTES % 2.4 % (18.0-39.1); MEAN CORPUSCULAR HEMOGLOBIN 28.5 pg (28-32); MEAN CORPUSCULAR HGB CONC 31.3 g/dL (31-35); MEAN CORPUSCULAR VOLUME 91.1 fL (81-99); MONOCYTES # (AUTO) 0.5 (0.2-0.8); NEUTROPHILS # (AUTO) 8.8 (2.1-6.9); NEUTROPHILS % 91.4 % (38.7-80.0); PLATELET COUNT 71 x10e3/uL (140-360); RED BLOOD COUNT 4.38 x10e6/uL (4.3-5.7)
[2021-02-06 06:55] LABS: ALBUMIN 1.7 g/dL (3.5-5.0); ALBUMIN/GLOBULIN RATIO 0.4 (0.8-2.0); ANION GAP 12.7 mmol/L (8-16); CALCIUM 8.9 mg/dL (8.4-10.2); CREATININE, SERUM 0.74 mg/dL (0.72-1.25); POTASSIUM 4.7 mmol/L (3.5-5.1)
[2021-02-06] MEDS: INSULIN LISPRO 100 UNIT/1 ML 3ML VIAL SQ SCH ×4 (07:35→20:56)
[2021-02-06 07:49] LABS: ABG HCO3 33 mmol/L (22-26); ABG PCO2 58 mmHg (35-45); ABG PH 7.36 (7.35-7.45); ABG PO2 81 mmHg (80-105); ABG TCO2 34
[2021-02-06] MEDS: ROCURONIUM 1250MG/NS 250 250 ML IV PRN (07:54)
[2021-02-06 08:37] LABS: BAND NEUTROPHILS % (MANUAL) 1 %; LYMPHOCYTES % (MANUAL) 2 % (19-48); MONOCYTES % (MANUAL) 2 % (3.4-9.0); NEUTROPHILS % (MANUAL) 94 % (40-74)
[2021-02-06 08:38] LABS: PLATELET ESTIMATE MODERATELY DECREASED; PLATELET MORPHOLOGY COMMENT NORMAL; RBC MORPHOLOGY COMMENT NORMAL
[2021-02-06] MEDS: FONDAPARINUX SODIUM 2.5 MG/0.5 ML SYR SQ SCH (09:37)
[2021-02-06] MEDS: BARICITINIB 2 MG TABLET PO SCH (09:37)
[2021-02-06] MEDS: AMLODIPINE BESYLATE 10 MG TAB PO SCH (09:37)
[2021-02-06] MEDS ORDERED: MIDAZOLAM HCL 5MG/ML 10ML VIAL 100 ML IV ONE (14:40)
[2021-02-06] MEDS: INSULIN GLARGINE 100 UNITS/ML VIAL SQ SCH (20:56)
[2021-02-07] VITALS (28 sets, daily range): BP systolic 103–165; BP diastolic 49–73
[2021-02-07] MEDS: MIDAZOLAM HCL 5MG/ML 10ML VIAL 100 ML IV PRN ×4 (01:00→20:15)
[2021-02-07] MEDS: FENTANYL 2000MCG/NS 250 250 ML IV PRN ×3 (01:31→18:00)
[2021-02-07 06:23] LABS: ALBUMIN 1.8 g/dL (3.5-5.0); ALBUMIN/GLOBULIN RATIO 0.5 (0.8-2.0); ANION GAP 14.2 mmol/L (8-16); CALCIUM 8.8 mg/dL (8.4-10.2); CREATININE, SERUM 0.72 mg/dL (0.72-1.25); POTASSIUM 4.2 mmol/L (3.5-5.1)
[2021-02-07] MEDS: METOPROLOL TARTRATE 50 MG TAB PO SCH ×3 (06:31→21:04)
[2021-02-07 08:12] LABS: BASOPHILS % 0.1 % (0.0-1.0); EOSINOPHILS # (AUTO) 0.1 (0.0-0.4); EOSINOPHILS % 0.8 % (0.0-6.0); HEMATOCRIT 41.2 % (38.2-49.6); LYMPHOCYTES # (AUTO) 0.4 (1.0-3.2); LYMPHOCYTES % 3.2 % (18.0-39.1); MEAN CORPUSCULAR HGB CONC 31.6 g/dL (31-35); MEAN CORPUSCULAR VOLUME 91.8 fL (81-99); MONOCYTES # (AUTO) 0.6 (0.2-0.8); MONOCYTES % 4.7 % (4.4-11.3); NEUTROPHILS # (AUTO) 10.8 (2.1-6.9); NEUTROPHILS % 89.9 % (38.7-80.0); PLATELET COUNT 96 x10e3/uL (140-360); RED BLOOD COUNT 4.49 x10e6/uL (4.3-5.7); RED CELL DISTRIBUTION WIDTH 13.7 % (11.7-14.4)
[2021-02-07 09:25] LABS: ABG PCO2 56 mmHg (35-45); ABG PH 7.39 (7.35-7.45)
[2021-02-07 09:26] LABS: ABG HCO3 35 mmol/L (22-26); ABG PO2 69 mmHg (80-105); ABG TCO2 37
[2021-02-07] MEDS: AMLODIPINE BESYLATE 10 MG TAB PO SCH (09:38)
[2021-02-07] MEDS: FONDAPARINUX SODIUM 2.5 MG/0.5 ML SYR SQ SCH (09:38)
[2021-02-07] MEDS: BARICITINIB 2 MG TABLET PO SCH (09:38)
[2021-02-07] MEDS: INSULIN LISPRO 100 UNIT/1 ML 3ML VIAL SQ SCH ×4 (09:39→21:03)
[2021-02-07] MEDS: ROCURONIUM 1250MG/NS 250 250 ML IV PRN (09:41)
[2021-02-07] MEDS: ACETAMINOPHEN 325 MG TAB PO PRN (20:45)
[2021-02-07] MEDS: INSULIN GLARGINE 100 UNITS/ML VIAL SQ SCH (21:03)
[2021-02-08] VITALS (27 sets, daily range): BP systolic 112–190; BP diastolic 44–72
[2021-02-08] MEDS: FENTANYL 2000MCG/NS 250 250 ML IV PRN ×3 (02:00→15:59)
[2021-02-08] MEDS: MIDAZOLAM HCL 5MG/ML 10ML VIAL 100 ML IV PRN ×5 (02:00→20:36)
[2021-02-08 06:21] LABS: BASOPHILS % 0.1 % (0.0-1.0); EOSINOPHILS # (AUTO) 0.2 (0.0-0.4); EOSINOPHILS % 1.2 % (0.0-6.0); HEMOGLOBIN 13.2 g/dL (14.0-18.0); LYMPHOCYTES # (AUTO) 0.4 (1.0-3.2); LYMPHOCYTES % 2.5 % (18.0-39.1); MEAN CORPUSCULAR HEMOGLOBIN 28.8 pg (28-32); MEAN CORPUSCULAR HGB CONC 31.4 g/dL (31-35); MEAN CORPUSCULAR VOLUME 91.5 fL (81-99); MONOCYTES # (AUTO) 0.7 (0.2-0.8); MONOCYTES % 5.1 % (4.4-11.3); NEUTROPHILS # (AUTO) 12.6 (2.1-6.9); PLATELET COUNT 97 x10e3/uL (140-360); RED BLOOD COUNT 4.59 x10e6/uL (4.3-5.7); RED CELL DISTRIBUTION WIDTH 13.8 % (11.7-14.4)
[2021-02-08] MEDS: METOPROLOL TARTRATE 50 MG TAB PO SCH ×3 (06:38→21:17)
[2021-02-08 06:49] LABS: ALBUMIN 1.9 g/dL (3.5-5.0); ALBUMIN/GLOBULIN RATIO 0.5 (0.8-2.0); ANION GAP 13.5 mmol/L (8-16); CALCIUM 9.2 mg/dL (8.4-10.2); CREATININE, SERUM 0.78 mg/dL (0.72-1.25); POTASSIUM 4.5 mmol/L (3.5-5.1)
[2021-02-08] MEDS: INSULIN LISPRO 100 UNIT/1 ML 3ML VIAL SQ SCH ×4 (07:31→21:06)
[2021-02-08 07:35] LABS: ABG PCO2 61 mmHg (35-45); ABG PH 7.38 (7.35-7.45)
[2021-02-08 07:36] LABS: ABG HCO3 36 mmol/L (22-26); ABG PO2 63 mmHg (80-105); ABG TCO2 38
[2021-02-08] MEDS: FONDAPARINUX SODIUM 2.5 MG/0.5 ML SYR SQ SCH (08:00)
[2021-02-08] MEDS: AMLODIPINE BESYLATE 10 MG TAB PO SCH (08:00)
[2021-02-08] MEDS: ROCURONIUM 1250MG/NS 250 250 ML IV PRN (08:00)
[2021-02-08] MEDS: ALBUMIN 25% 25GM 100ML 0.25 GM/ML BTL IV SCH ×2 (08:29→21:05)
[2021-02-08] MEDS ORDERED: FUROSEMIDE INJ 10 MG/ML 4 ML VIAL IV ONE (08:30)
[2021-02-08] MEDS: BARICITINIB 2 MG TABLET PO SCH (09:00)
[2021-02-08] MEDS: LABETALOL HCL 5 MG/ML 20ML VIAL IV PRN (16:30)
[2021-02-08] MEDS: PROPOFOL IV EMULSION 10MG/ML 100 ML IV PRN ×2 (17:13→20:36)
[2021-02-08] MEDS: ACETAMINOPHEN 325 MG TAB PO PRN (19:14)
[2021-02-08] MEDS: INSULIN GLARGINE 100 UNITS/ML VIAL SQ SCH (21:07)
[2021-02-09] VITALS (30 sets, daily range): BP systolic 111–157; BP diastolic 49–75
[2021-02-09] MEDS: FENTANYL 2000MCG/NS 250 250 ML IV PRN ×3 (00:35→21:11)
[2021-02-09] MEDS: PROPOFOL IV EMULSION 10MG/ML 100 ML IV PRN ×3 (00:45→14:33)
[2021-02-09] MEDS: MIDAZOLAM HCL 5MG/ML 10ML VIAL 100 ML IV PRN ×4 (01:40→22:30)
[2021-02-09] MEDS: LABETALOL HCL 5 MG/ML 20ML VIAL IV PRN (01:44)
[2021-02-09] MEDS: ACETAMINOPHEN 325 MG TAB PO PRN ×2 (01:45→20:14)
[2021-02-09 06:09] LABS: BASOPHILS # (AUTO) 0.1 (0.0-0.1); BASOPHILS % 0.3 % (0.0-1.0); EOSINOPHILS # (AUTO) 0.2 (0.0-0.4); EOSINOPHILS % 0.8 % (0.0-6.0); HEMATOCRIT 43.5 % (38.2-49.6); HEMOGLOBIN 13.5 g/dL (14.0-18.0); LYMPHOCYTES # (AUTO) 0.6 (1.0-3.2); LYMPHOCYTES % 2.3 % (18.0-39.1); MEAN CORPUSCULAR HEMOGLOBIN 29.1 pg (28-32); MEAN CORPUSCULAR VOLUME 93.8 fL (81-99); MONOCYTES # (AUTO) 1.1 (0.2-0.8); NEUTROPHILS # (AUTO) 24.6 (2.1-6.9); NEUTROPHILS % 90.6 % (38.7-80.0); PLATELET COUNT 142 x10e3/uL (140-360); RED BLOOD COUNT 4.64 x10e6/uL (4.3-5.7); RED CELL DISTRIBUTION WIDTH 14.1 % (11.7-14.4)
[2021-02-09] MEDS: METOPROLOL TARTRATE 50 MG TAB PO SCH ×3 (06:17→21:01)
[2021-02-09 06:36] LABS: ALBUMIN 2.6 g/dL (3.5-5.0); ALBUMIN/GLOBULIN RATIO 0.6 (0.8-2.0); ANION GAP 12.5 mmol/L (8-16); CALCIUM 9.7 mg/dL (8.4-10.2); CREATININE, SERUM 1.05 mg/dL (0.72-1.25); POTASSIUM 5.5 mmol/L (3.5-5.1)
[2021-02-09] MEDS: ROCURONIUM 1250MG/NS 250 250 ML IV PRN ×2 (06:47→23:55)
[2021-02-09] MEDS: INSULIN LISPRO 100 UNIT/1 ML 3ML VIAL SQ SCH ×4 (07:30→21:01)
[2021-02-09] MEDS ORDERED: CEFEPIME 1 GM in SODIUM CHLORIDE 0.9% 50ML 50 ML IV SCH (08:00)
[2021-02-09 08:04] LABS: BAND NEUTROPHILS % (MANUAL) 3 %; LYMPHOCYTES % (MANUAL) 2 % (19-48); METAMYELOCYTES % (MANUAL) 1 % (0-0); MONOCYTES % (MANUAL) 4 % (3.4-9.0); NEUTROPHILS % (MANUAL) 90 % (40-74); PLATELET ESTIMATE ADEQUATE; PLATELET MORPHOLOGY COMMENT NORMAL; RBC MORPHOLOGY COMMENT NORMAL
[2021-02-09 08:12] LABS: ABG HCO3 39 mmol/L (22-26); ABG PCO2 115 mmHg (35-45); ABG PH 7.14 (7.35-7.45); ABG PO2 58 mmHg (80-105); ABG TCO2 43
[2021-02-09] MEDS: AMLODIPINE BESYLATE 10 MG TAB PO SCH (08:44)
[2021-02-09] MEDS: LINEZOLID 600 MG/D5W 300ML 300 ML IV SCH ×2 (08:44→20:14)
[2021-02-09] MEDS: ALBUMIN 25% 25GM 100ML 0.25 GM/ML BTL IV SCH ×2 (08:44→20:13)
[2021-02-09] MEDS: BARICITINIB 2 MG TABLET PO SCH (08:45)
[2021-02-09] MEDS: FONDAPARINUX SODIUM 2.5 MG/0.5 ML SYR SQ SCH (08:47)
[2021-02-09] MEDS ORDERED: SOD POLYSTYRENE SULFONATE SUSP 15 GM/60 ML BTL PO ONE (09:00)
[2021-02-09] MEDS: FENOFIBRATE 145 MG TAB PO SCH (09:00)
[2021-02-09] MEDS: CEFEPIME 1 GM in SODIUM CHLORIDE 0.9% 50ML 50 ML IV SCH ×2 (09:00→17:00)
[2021-02-09 10:06] LABS: ABG HCO3 35 mmol/L (22-26); ABG PCO2 75 mmHg (35-45); ABG PH 7.28 (7.35-7.45); ABG PO2 51 mmHg (80-105); ABG TCO2 37
[2021-02-09] MEDS: FUROSEMIDE INJ 10 MG/ML 4 ML VIAL IV SCH ×2 (12:50→21:00)
[2021-02-09] MEDS: INSULIN GLARGINE 100 UNITS/ML VIAL SQ SCH (21:01)
[2021-02-10] VITALS (27 sets, daily range): BP systolic 112–143; BP diastolic 50–85
[2021-02-10] MEDS: CEFEPIME 1 GM in SODIUM CHLORIDE 0.9% 50ML 50 ML IV SCH ×3 (00:05→17:35)
[2021-02-10] MEDS: FENTANYL 2000MCG/NS 250 250 ML IV PRN ×2 (03:33→17:43)
[2021-02-10] MEDS: MIDAZOLAM HCL 5MG/ML 10ML VIAL 100 ML IV PRN ×5 (03:37→23:23)
[2021-02-10] MEDS: METOPROLOL TARTRATE 50 MG TAB PO SCH ×3 (05:49→21:07)
[2021-02-10 06:03] LABS: CALCIUM IONIZED 1.3 mmol/L (1.09-1.30)
[2021-02-10 06:12] LABS: BASOPHILS % 0.2 % (0.0-1.0); EOSINOPHILS # (AUTO) 0.1 (0.0-0.4); EOSINOPHILS % 1.1 % (0.0-6.0); HEMATOCRIT 32.2 % (38.2-49.6); HEMOGLOBIN 10.3 g/dL (14.0-18.0); LYMPHOCYTES # (AUTO) 0.3 (1.0-3.2); LYMPHOCYTES % 2.7 % (18.0-39.1); MEAN CORPUSCULAR HEMOGLOBIN 28.8 pg (28-32); MEAN CORPUSCULAR VOLUME 89.9 fL (81-99); MONOCYTES # (AUTO) 0.5 (0.2-0.8); MONOCYTES % 4.2 % (4.4-11.3); NEUTROPHILS # (AUTO) 10.2 (2.1-6.9); NEUTROPHILS % 90.8 % (38.7-80.0); PLATELET COUNT 102 x10e3/uL (140-360); RED BLOOD COUNT 3.58 x10e6/uL (4.3-5.7); RED CELL DISTRIBUTION WIDTH 13.4 % (11.7-14.4)
[2021-02-10 06:43] LABS: MAGNESIUM 2.3 MG/DL (1.3-2.1); PHOSPHORUS 1.9 MG/DL (2.3-4.7)
[2021-02-10 06:46] LABS: ALBUMIN 2.7 g/dL (3.5-5.0); ALBUMIN/GLOBULIN RATIO 0.8 (0.8-2.0); ANION GAP 12.6 mmol/L (8-16); CALCIUM 9.5 mg/dL (8.4-10.2); CREATININE, SERUM 1.07 mg/dL (0.72-1.25); POTASSIUM 3.6 mmol/L (3.5-5.1)
[2021-02-10 07:41] LABS: ABG PCO2 47 mmHg (35-45); ABG PH 7.49 (7.35-7.45); ABG PO2 43 mmHg (80-105)
[2021-02-10 07:42] LABS: ABG HCO3 36 mmol/L (22-26); ABG TCO2 37
[2021-02-10 07:48] LABS: BASOPHILS % 0.2 % (0.0-1.0); EOSINOPHILS # (AUTO) 0.1 (0.0-0.4); EOSINOPHILS % 1.1 % (0.0-6.0); HEMATOCRIT 34.6 % (38.2-49.6); LYMPHOCYTES # (AUTO) 0.4 (1.0-3.2); LYMPHOCYTES % 3.2 % (18.0-39.1); MEAN CORPUSCULAR HEMOGLOBIN 29.1 pg (28-32); MEAN CORPUSCULAR HGB CONC 31.8 g/dL (31-35); MEAN CORPUSCULAR VOLUME 91.5 fL (81-99); MONOCYTES # (AUTO) 0.5 (0.2-0.8); MONOCYTES % 4.4 % (4.4-11.3); NEUTROPHILS # (AUTO) 11.2 (2.1-6.9); PLATELET COUNT 106 x10e3/uL (140-360); RED BLOOD COUNT 3.78 x10e6/uL (4.3-5.7); RED CELL DISTRIBUTION WIDTH 13.7 % (11.7-14.4)
[2021-02-10] MEDS: LINEZOLID 600 MG/D5W 300ML 300 ML IV SCH ×2 (08:18→20:39)
[2021-02-10] MEDS: BARICITINIB 2 MG TABLET PO SCH (08:19)
[2021-02-10] MEDS: FONDAPARINUX SODIUM 2.5 MG/0.5 ML SYR SQ SCH (08:19)
[2021-02-10] MEDS: ALBUMIN 25% 25GM 100ML 0.25 GM/ML BTL IV SCH ×2 (08:19→21:06)
[2021-02-10] MEDS: FENOFIBRATE 145 MG TAB PO SCH (08:19)
[2021-02-10] MEDS: AMLODIPINE BESYLATE 10 MG TAB PO SCH (08:19)
[2021-02-10] MEDS: FUROSEMIDE INJ 10 MG/ML 4 ML VIAL IV SCH ×2 (08:19→21:06)
[2021-02-10] MEDS: INSULIN GLARGINE 100 UNITS/ML VIAL SQ SCH ×2 (08:20→17:37)
[2021-02-10] MEDS: INSULIN LISPRO 100 UNIT/1 ML 3ML VIAL SQ SCH ×5 (08:21→17:37)
[2021-02-10 13:17] LABS: ABG HCO3 36 mmol/L (22-26); ABG PCO2 51 mmHg (35-45); ABG PH 7.46 (7.35-7.45); ABG PO2 45 mmHg (80-105); ABG TCO2 37
[2021-02-10] MEDS: BALSAM PERU/CASTOR OIL 60 GM OINT...G. TP SCH (14:49)
[2021-02-10] MEDS ORDERED: PHOSPHORUS 250 MG TAB PO ONE (15:20)
[2021-02-10] MEDS: PROPOFOL IV EMULSION 10MG/ML 100 ML IV PRN ×3 (17:43→23:44)
[2021-02-10] MEDS: ROCURONIUM 1250MG/NS 250 250 ML IV PRN (17:44)
[2021-02-10] MEDS ORDERED: SODIUM CHLORIDE 0.9% 250ML 250 ML ONE (21:13)
[2021-02-11] VITALS (11 sets, daily range): BP systolic 29–144; BP diastolic 26–56
[2021-02-11] MEDS: FENTANYL 2000MCG/NS 250 250 ML IV PRN ×2 (00:09→07:03)
[2021-02-11] MEDS: INSULIN LISPRO 100 UNIT/1 ML 3ML VIAL SQ SCH ×4 (00:11→06:08)
[2021-02-11] MEDS: CEFEPIME 1 GM in SODIUM CHLORIDE 0.9% 50ML 50 ML IV SCH ×2 (01:09→09:00)
[2021-02-11] MEDS: PROPOFOL IV EMULSION 10MG/ML 100 ML IV PRN ×2 (03:13→06:31)
[2021-02-11] MEDS: MIDAZOLAM HCL 5MG/ML 10ML VIAL 100 ML IV PRN (04:52)
[2021-02-11 05:42] LABS: BASOPHILS % 0.2 % (0.0-1.0); EOSINOPHILS # (AUTO) 0.2 (0.0-0.4); EOSINOPHILS % 1.3 % (0.0-6.0); HEMOGLOBIN 10.8 g/dL (14.0-18.0); LYMPHOCYTES # (AUTO) 0.5 (1.0-3.2); LYMPHOCYTES % 3.9 % (18.0-39.1); MEAN CORPUSCULAR HEMOGLOBIN 28.3 pg (28-32); MEAN CORPUSCULAR HGB CONC 30.9 g/dL (31-35); MEAN CORPUSCULAR VOLUME 91.6 fL (81-99); MONOCYTES # (AUTO) 0.6 (0.2-0.8); MONOCYTES % 4.7 % (4.4-11.3); NEUTROPHILS # (AUTO) 11.3 (2.1-6.9); NEUTROPHILS % 88.8 % (38.7-80.0); PLATELET COUNT 135 x10e3/uL (140-360); RED BLOOD COUNT 3.82 x10e6/uL (4.3-5.7); RED CELL DISTRIBUTION WIDTH 13.8 % (11.7-14.4)
[2021-02-11 06:22] LABS: ALBUMIN/GLOBULIN RATIO 0.9 (0.8-2.0); ANION GAP 14.7 mmol/L (8-16); CALCIUM 9.9 mg/dL (8.4-10.2); CREATININE, SERUM 0.94 mg/dL (0.72-1.25); POTASSIUM 3.7 mmol/L (3.5-5.1)
[2021-02-11] MEDS: METOPROLOL TARTRATE 50 MG TAB PO SCH (06:31)
[2021-02-11] MEDS ORDERED: NOREPINEPHRINE 8 MG/D5W 250 ML 250 ML ONE (07:58)
[2021-02-11] MEDS: LINEZOLID 600 MG/D5W 300ML 300 ML IV SCH (08:00)
[2021-02-11 08:07] LABS: ABG PCO2 61 mmHg (35-45); ABG PH 7.39 (7.35-7.45)
[2021-02-11 08:08] LABS: ABG HCO3 37 mmol/L (22-26); ABG PO2 36 mmHg (80-105); ABG TCO2 38
[2021-02-11] MEDS: INSULIN GLARGINE 100 UNITS/ML VIAL SQ SCH (09:00)
[2021-02-11] MEDS: FUROSEMIDE INJ 10 MG/ML 4 ML VIAL IV SCH (09:00)
[2021-02-11] MEDS: FENOFIBRATE 145 MG TAB PO SCH (09:00)
[2021-02-11] MEDS: ALBUMIN 25% 25GM 100ML 0.25 GM/ML BTL IV SCH (09:00)
[2021-02-11] MEDS: AMLODIPINE BESYLATE 10 MG TAB PO SCH (09:00)
[2021-02-11] MEDS: BALSAM PERU/CASTOR OIL 60 GM OINT...G. TP SCH (09:00)
[2021-02-11] MEDS ORDERED: FONDAPARINUX SODIUM 2.5 MG/0.5 ML SYR SQ SCH (09:00)
== END 2021-02-11 12:15 | disposition expired | DRG 207 ==
LOC: ER 11:45 → ERHOLD 14:30 → MED/SURG3 15:56 → IMCU 01-29 20:14 → ICU 02-02 05:35
PROVIDERS: ADMIT Internal Medicine; ATTEND Internal Medicine
PROC: 5A1955Z Respiratory Ventilation, Greater than 96 Consecutive Hours (ICD-10-PCS; principal; 2021-02-02)
PROC: 0BH17EZ Insertion of Endotracheal Airway into Trachea, Via Natural or Artificial Opening (ICD-10-PCS; 2021-02-02)
PROC: 02HV33Z Insertion of Infusion Device into Superior Vena Cava, Percutaneous Approach (ICD-10-PCS; 2021-02-02)
PROC: 03HC33Z Insertion of Infusion Device into Left Radial Artery, Percutaneous Approach (ICD-10-PCS; 2021-02-03)
DX: U07.1 COVID-19 (principal); J12.82 Pneumonia due to coronavirus disease 2019; J80 Acute respiratory distress syndrome; A41.9 Sepsis, unspecified organism; J18.9 Pneumonia, unspecified organism; E87.1 Hypo-osmolality and hyponatremia; N17.9 Acute kidney failure, unspecified; E87.2 Acidosis; E87.3 Alkalosis; I10 Essential (primary) hypertension; E11.65 Type 2 diabetes mellitus with hyperglycemia; R16.1 Splenomegaly, not elsewhere classified; E66.9 Obesity, unspecified; E87.6 Hypokalemia; F10.10 Alcohol abuse, uncomplicated; D69.6 Thrombocytopenia, unspecified; E87.5 Hyperkalemia; E66.01 Morbid (severe) obesity due to excess calories; Z66 Do not resuscitate; Z68.34 Body mass index [BMI] 34.0-34.9, adult; Z79.84 Long term (current) use of oral hypoglycemic drugs
CPT/HCPCS: 36415; 36569; 36600; 71045; 71260; 74018; 80048; 80053; 81001; 82550; 82553; 82728; 82805; 82948; 83036; 83605; 83735; 84100; 84443; 84484; 85025; 85379; 85610; 85730; 86022; 86141; 87040; 93005; 93306; 94002; 94003; 94660; 94799; 96361; 96372; 99251; 99284; J0330; J0360; J0456; J0692; J0696; J1100; J1650; J1652; J1815; J1940; J2020; J2250; J2543; J7030; J7050; J7121; P9047; Q9967; U0002